=== PATIENT | female | born 1960 | race Caucasian/White ===

== ENCOUNTER → 2024-01-10 13:13 | Outpatient (REF) | payer OTHER, SELFPAY | LOC: ANHLAB 13:13 | PROVIDERS: PCP Internal Medicine; Visit Provider Plastic Surgery | DX: D48.5 Neoplasm of uncertain behavior of skin (principal); L72.3 Sebaceous cyst | CPT/HCPCS: 88305 ==

== ENCOUNTER 2024-08-08 15:00 | Emergency (ER) | payer MEDICARE, OTHER, SELFPAY ==
--- NOTE | ~2024-08-08 | XR_ITS ---
XR shoulder RT min 2V Ordering provider: David Green APRN History: . pain . Comparison: None. FINDINGS: BONES: No acute fracture or dislocation. JOINT SPACES: The acromioclavicular joint shows mild osteoarthritic changes. The glenohumeral joint i s normal. SOFT TISSUES: Normal. IMPRESSION: No acute osseous abnormality right shoulder. Reviewed, dictated and finalized at location A.
--- NOTE | ~2024-08-08 | XR_ITS ---
XR humerus RT Ordering provider: David Green APRN History: . pain, no particular injury reported . Comparison: None. FINDINGS: BONES: No acute fracture or dislocation. JOINT SPACES: Normal. SOFT TISSUES: Normal. IMPRESSION: No acute osseous abnormality right humerus. Reviewed, dictated and finalized at location A.
[2024-08-08 15:16] VITALS: BP 142/83; PULSE 65; RESP 20; TEMP 36.2; O2SAT 98
--- OUTSIDE RECORDS SUMMARY | 2024-08-08 15:31 | XMS_ITS | Clinical Summary ---
Author Organization [facility] Address [address] [facility] [place] [address] Phone Care Team Providers Care Surgical Elastic Knitter Hand Frame Name Role Phone Darshan Lockwood DPM Unavailable [phone] Provider, Not On File Primary Care Provider Unav ailable Allergies Active Allergy Reactions Criticality Noted Date Comments Neomycin Unknown 11/05/2015 Medications lisinopril-hydro CHLOROthiazide (PRINZIDE, ZESTORETIC) 10-12.5 MG Tablet 3 08/21/2015 Active DULoxetine (CYMBALTA) [address] Particles 5 10/14/2015 Active Cholecalciferol (VITAMIN D PO) Take by mouth. 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 16 Lumbar radiculopathy 11/05/2015 Dermatophytosis of nail 11/05/2015 Family History Medical History Relation Name Comments Cancer Father Cancer Maternal Aunt Cancer Maternal Grandfather Cancer Maternal Uncle Cancer Paternal Grandmother Cancer Paternal Uncle Relation Name Status Comments Father Maternal Aunt Maternal Grandfather Maternal Uncle Paternal Grandmother Paternal Uncle Social History Tobacco Use Types Packs/Day Years Used Date Smoking Tobacco: Never Alcohol Use Standard Drinks/Week Comments No 0 (1 standard drink = 0.6 oz pur e alcohol) Comments Unknown Sex and Gender Information Value Date Recorded Sex Assigned at Not on file Legal Sex Female 9:53 PM CDT Gender Identity Not on file Sexual Orientation Not on file Last Filed Vital Signs Vital Sign Reading Time Taken Comments Blood Pressure 120/70 11/05/2015 2:10 PM CDT Pulse 80 11/05/2015 2:10 PM CDT Temperature 37.1 C (98.7 F) 11/05/2015 2:10 PM CDT Respiratory Rate 18 11/05/2015 2:10 PM CDT Oxygen Saturation - - Inhaled Oxygen Concentration - - Weight 99.8 kg (220 lb) 11/05/2015 2:10 PM CDT Height 175.3 cm (5' 9 ) 11/05/2015 2:10 PM CDT Body Mass Index 32.49 11/05/2015 2:10 PM CDT Plan of Treatment Health Maintenance Due Date Last Done Comments DEXA Bone Density 1959 Hepatitis C Virus (HCV) Screening 1959 TdaP Immunization 1959 Pap Smear 01/20/1980 Cervical Cancer Screening (CCS) 1989 HPV/Cotest 1989 Colonoscopy 01/20/2004 Colorectal Cancer Screening 01/20/2004 Cologuard 2009 Immunochemical Fecal Occult Blood 2009 Mammogram 2009 Pneumococcal Immunization (5 0+ years) (1 of 1 - PCV) 2009 Zoster Immunization (1 of 2) 2009 Influenza Immunization (#1) 2023 SARS-COV-2 Immunization ( - 2023- season) 2023 Respiratory Syncytial Virus (RSV) Immunization (Adult) (1 - 1-dose 75+ series) 2034 Hepatitis B Immunization Aged Out No longer eligible based on patient's age to complete this topic Meningococcal Immunization (ACWY) Aged Out No longer eligible based on patient's age to complete this topic Pneumococcal Immunization Combined Aged Out No longer eligible based on patient's age to complete this topic Rotavirus Immunization Aged Out No lo nger eligible based on patient's age to complete this topic Care Teams Surgical Elastic Knitter Hand Frame Relationship Specialty Start Date End Date Provider, Not On File [place] PCP - General 11/05/15 Darshan Lockwood DPM Consulting Physician Podiatry 10/26/15
--- OUTSIDE RECORDS SUMMARY | 2024-08-08 15:31 | XMS_ITS | Clinical Summary ---
Author Organization [facility] Address [address] [place] [address] Phone Care Team Providers Care Medicaid Business Analyst Name Role Phone Unavailable Primary Care Provider Unavailabl e Social History Tobacco Use Types Packs/Day Years Used Date Smoking Tobacco: Never Assessed Comments Unknown Sex and Gender Information Value Date Recorded Sex Assigned at Not on file Legal Sex Female 4:24 PM CDT Gender Identity Not on file Sexual Orientation Not on file Plan of Treatment Health Maintenance Due Date Last Done Comments DTAP/TDAP/TD VACCINES (1 - Tdap) 1978 BREAST CANCER SCREENING 1999 COLORECTAL SCREENING 01/20/2004 Colorectal Cancer Screening 01/20/2004 FIT-DNA Q 3 years 01/20/2004 FIT/FOBT Q 1 year 01/20/2004 Flex Sig/CT Colonography Q 5 years 01/20/2004 PNEUMOCOCCAL VACCINE 50+ YEARS (1 of 1 - PCV) 01/20/20 09 ZOSTER VACCINE (1 of 2) 2009 INFLUENZA VACCINE (#1) 2023 OSTEOPOROSIS SCREENING 01/20/2024 RSV VACCINE (60+ or ) (1 - 1-dose 75+ series) 2034 Insurance [facility] BLUE ACCESS/TRUE BLUE PPO
--- OUTSIDE RECORDS SUMMARY | 2024-08-08 15:31 | XMS_ITS | Encounter Summary ---
Author Organization [facility] Address [address] [place] [address] Care Team Providers Care Farmworker Bulbs Name Role Phone Jeremy Flores MD Primary Care Provi susan Fredy Guaman MD Unavailable [phone] Doug Bains MD Unavailable [phone] Encounter Details Date Type Department Care Team (Late st Contact Info) Description 06/27/2018 Telephone 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 Gender Identity Not on file Sexual Orientation Straight 09/24/2018 10 :04 PM CDT documented as of this encounter Plan of Treatment Upcoming Encounters Date Type Department Care Team (Latest Contact Info) Description 08/15/2024 8:30 AM CDT Hospital Encounter [facility] [address] [place] [address] [place] [address] [place] [address] 08/15/2024 8:30 AM CDT - 08/15/2024 9:30 AM CDT Surgery [facility] [address] [place] [address] [place] [address] [place] [address] Right ureteroscopy laser lithotripsy with stent placement Scheduled Procedures Name Priority Associated Diagnoses Date/Ti me URETEROSCOPY Calculus of kidney 08/15/2024 8:30 AM CDT documented as of this encounter Visit Diagnoses Not on filedocumented in this encounter Additional Health Concerns Infection Onset Date Last Indicated Resolved Time COVID: Suspected 07/14/2022 07/14/2022 07/14/2022 11:08 PM CDT documented as of this encounter Care Teams Farmworker Bulbs Relationship Specialty Start Date End Date Jeremy Flores MD PCP - General 09/01/16 Fredy Guaman MD [address] [place] [address] Referring Physician Neuromuscular Medicine 12/26/17 Doug Bains MD [address] [facility] [address] [place] [address] Consulting Physician General Surgery 08/02/24 documented as of this encounter
--- OUTSIDE RECORDS SUMMARY | 2024-08-08 15:31 | XMS_ITS | Referral Summary ---
Author Organization [facility] al Address [address] [place] [address] Care Team Providers Care Analytical Technician Name Role Phone Lucien Pelletier MD Primary Care Provi susan Fredy Guaman MD Unavailable [phone] Doug Bains MD Unavailable [phone] Encounters Date Type Department Care Team Description 08/01/2024 9:16 AM CDT - 08/02/2024 2:25 PM CDT Hospital Encounter [address] [phone] Doug Bains MD Irreducible incisional hernia (Primary Dx) Discharge Disposition: Discharge to home or self care 08/01/2024 11:30 AM CDT - 08/01/2024 1:10 PM CDT Surgery [facility] Operating Room [address] [place] [phone] Doug Bains MD Incisional Hernia Repair with Mesh 08/01/2024 10:58 AM CDT Anesthesia Event [facility] Operating Room [address] [place] [phone] Asad Beth MD Czajkowski, Lesly June, NP 07/30/2024 8:45 AM CDT Pre-Admission Testing [facility] Pre Anesthesia Testing [facility] [place] [address] 07/25/2024 2:00 PM CDT Office Visit [facility] [address] [facility] [address] [place] [address] Aileen Savage NP Dyspnea on exertion (Primary Dx); Abnormal cardiovascular stress test 07/23/2024 Telephone [facility] [address] [facility] [address] [place] [address] Lucien Pelletier MD TEREZA Questions 07/22/2024 2:50 PM CDT - 07/22/2024 4:40 PM CDT Surgery [facility] [address] [place] [phone] Lloyd Nix MD LEFT HEART CATHETERIZATION WITH CORONARY ANGIOGRAPHY AND WITH OR WITHOUT LEFT VENTRICULOGRAM [id number] 07/19/2024 8:56 PM CDT - 07/22/2024 6:15 PM CDT Hospital Encounter [address] [address] Jennifer Esquivel MD Li, Hei Jun, MD Avagyan, Juletta, MD Sripada, Sarada, MD 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, unspecified vessel or lesion type (HCC) (Primary Dx) Discharge Disposition: Discharge to home or self care 07/20/2024 Results Follow-Up [facility] [address] [place] [address] [place] [phone] Ortiz Mckee MD PhD 07/19/2024 Results Follow-Up [facility] [address] [place] [address] [address], [place] [address] Ortiz Mckee MD PhD 07/19/2024 11:24 AM CDT - 07/19/2024 11:59 PM CDT Hospital Encounter [facility] [address], [place] [address] Other chest pain Discharge Disposition: Discharge to home or self care 07/19/2024 11:24 AM CDT - 07/19/2024 11:59 PM CDT Hospital Encounter [facility] Imaging [address], [place] [address] Other chest pain Discharge Disposition: Discharge to home or self care 07/17/2024 Telephone [facility] Imaging [address], [place] [address] Floridamla Duffy RN 07/10/2024 Telephone [facility] Cardiology [address] [facility] [address] [place] [address] Ortiz Mckee MD PhD blood pressure concerns 07/10/2024 11:15 AM CDT Office Visit [facility] Surgery [address] [facility] [address] [place] [address] Doug Bains MD Hernia of abdominal wall 07/02/2024 Telephone [facility] [address] [facility] [address] [place] [address] Marian Can Chart Review ([facility]) 06/24/2024 Telephone [facility] [address] [facility] [address] [place] [address] Lucien Pelletier MD Referral Request 06/24/2024 Telephone [facility] [address] [facility] [address] [place] [address] Lucien Pelletier MD Referral Request 06/19/2024 Telephone [facility] Cardiology [address] [facility] [address] [place] [address] Ortiz Mckee MD PhD 06/18/2024 Telephone [facility] [address] [facility] [address] [place] [address] Darshan Bennett MD 06/18/2024 1:00 PM CDT Office Visit [facility] [address] [facility] [address] [place] [phone] Ortiz Mckee MD PhD Other chest pain (Primary Dx) 06/12/2024 11:00 AM STAFF TRAINING AND DEVELOPMENT MANAGER Office Visit [facility] [address] [facility] [address] [place] [address] Aileen Savage NP Nephrolithiasis (Primary Dx); Morbid obesity with BMI of 40.0-44.9, adult (HCC); Dyspnea on exertion; Abnormal cardiovascular stress test; Partial small bowel obstruction (HCC); Hernia of abdominal wall 06/11/2024 Telephone [facility] [address] [facility] [address] [place] [address] Lucien Pelletier MD 06/07/2024 Telephone [facility] [address] [place] [address] [address] [place] [address] Lucien Pelletier MD 06/06/2024 Telephone [facility] [address] [place] [address] [address] [place] [address] Lucien Pelletier MD Test Results 06/06/2024 [facility] [address] [place] [address] [address] [place] [address] Lucien Pelletier MD Recommendation Request (Nephrology); kidney stones 06/06/2024 Telephone [facility] [address] [place] [address] [address] [place] [address] Lucien Pelletier MD Medical Records Request 06/05/2024 Telephone [facility] [address] [place] [address] [address] [place] [address] Lucien Pelletier MD Medical Question/Miscellaneous 06/05/2024 10:07 AM STAFF TRAINING AND DEVELOPMENT MANAGER - 06/05/2024 11:59 PM STAFF TRAINING AND DEVELOPMENT MANAGER Hospital Encounter [facility] Cardiology [address] [place] [address] Dyspnea on exertion Discharge Disposition: Discharge to home or self care 06/03/2024 TEREZA IP Outreach [facility] Care Organization [address] [place] [address] Madelin Hernández MA 05/31/2024 12:21 PM STAFF TRAINING AND DEVELOPMENT MANAGER - 06/01/2024 5:10 PM STAFF TRAINING AND DEVELOPMENT MANAGER Hospital Encounter [facility] [address] [place] [address] Alec Rivera Jr., MD Discharge Disposition: Discharge to home or self care 05/31/2024 10:58 AM STAFF TRAINING AND DEVELOPMENT MANAGER - 05/31/2024 11:59 PM STAFF TRAINING AND DEVELOPMENT MANAGER Hospital Encounter [facility] Emergency, Room R Discharge Disposition: Discharge to home or self care 05/30/2024 2:23 PM STAFF TRAINING AND DEVELOPMENT MANAGER - 05/31/2024 11:25 AM STAFF TRAINING AND DEVELOPMENT MANAGER Emergency [facility] Emergency Department [address] [place] [address] Barry Infante MD Wala, Zubin Faiz, MD Nausea and vomiting, unspecified vomiting type (Primary Dx); Bowel obstruction (HCC); Renal stone; Gallbladder stone without cholecystitis or obstruction Discharge Disposition: Discharge to a short term hospital for IP 05/30/2024 10:16 AM STAFF TRAINING AND DEVELOPMENT MANAGER - 05/30/2024 11:59 PM STAFF TRAINING AND DEVELOPMENT MANAGER Hospital Encounter [facility] Emergency, Room R Discharge Disposition: Discharge to home or self care 05/30/2024 Telephone [facility] [address] [place] [phone] Lucien Pelletier MD Symptom Based Call 05/20/2024 3:45 PM STAFF TRAINING AND DEVELOPMENT MANAGER Office Visit [facility] [address] [place] [phone] Lucien Pelletier MD Primary hypertension (Primary Dx); Morbid obesity with BMI of 40.0-44.9, adult (HCC); Dyspnea on exertion; History of colon cancer; IFG (impaired fasting glucose); Nephrolithiasis; Neuropathy due to chemotherapeutic drug; Bilateral primary osteoarthritis of knee from Last 3 Months Allergies Active Allergy Reactions Criticality Noted Date Comments Ciprofloxacin Dizziness,Nausea only Low Neomycin Nausea only Low Medications pregabalin (LYRICA) 200 mg capsule Take 1 capsule by mouth twice daily 60 capsule 3 04/25/19 25 Active acetaminophen (TYLENOL) 500 mg tablet Take 2 tablets (1,000 mg total) by mouth 2 (two) times a day Active cholecalciferol 25 mcg (1,000 unit) tablet Take 1 tablet (1,000 Units total) by mouth every morning Active famotidine (PEPCID) 20 mg tablet Take 1 tablet (20 mg total) by mouth galley worker before breakfast Active aspirin 81 mg enteric coated tablet Take 1 tablet (81 mg total) by mouth nightly Active naproxen (ALEVE) 220 mg tablet Take 1 tablet (220 mg total) by mouth every 12 (twelve) hours as needed for pain Active DULoxetine DR (CYMBALTA) 30 mg capsule Take 1 capsule (30 mg total) by mouth every morning Active empagliflozin (JARDIANCE) 10 mg tablet Take 1 tablet (10 mg total) by mouth every morning Active losartan (COZAAR) 100 mg tablet Take 1 tablet (100 mg total) by mouth every morning Active metoprolol XL (TOPROL-XL) 25 mg extended release tablet Take 1 tablet (25 mg total) by mouth every morning Active rosuvastatin (CRESTOR) 20 mg tablet Take 1 tablet (20 mg total) by mouth nightly Active spironolactone (ALDACTONE) 25 mg tablet Take 1 tablet (25 mg total) by mouth every morning Active HYDROcodone-aceta minophen (NORCO) 5-325 mg per tabletIndications :Pain Take 1-2 tablets by mouth every 4 (four) hours as needed for pain 30 tablet 08/03/[address] (CYMBALTA) 60 mg capsule Take 1 capsule (60 mg total) by mouth daily Active loperamide (IMODIUM A-D) 2 mg tablet take 2 tablet by per tube route after 1st loose stool and 1 tablet (2 mg) after each next bowel movement; do not exceed 16 mg in 24hrs 0 0 12/24/19 14 2024 Discontinued(E rror) naproxen sodium 220 mg capsule Take 220 mg by mouth 2 (two) times a day as needed (chronic pain) 07/01/19 23 2024 Discontinued(S top Taking at Discharge) potassium citrate ER (UROCIT-K) 10 mEq (1,080 mg) CR tablet Take 2 tablets (20 mEq total) by mouth 2 (two) times a day 2024 Discontinued(S top Taking at Discharge) famotidine (PEPCID) 20 mg tablet 1 tablet (20 mg total) 06/01/19 25 2024 Discontinued(D uplicate order) ondansetron ODT (ZOFRAN-ODT) 4 mg disintegrating tablet Take 1 tablet (4 mg total) by mouth every 8 (eight) hours as needed for nausea or vomiting 15 tablet 06/01/19 25 2024 Discontinued(T herapy completed) rosuvastatin (CRESTOR) 20 mg tablet Take 1 tablet by mouth once daily 30 tablet 1 06/03/19 [address] (CYMBALTA) 30 mg capsuleIndication s:Neuropathic pain Take 1 capsule (30 mg total) by mouth daily 90 capsule 1 06/12/19 25 2024 Discontinued(E rror) DULoxetine DR (CYMBALTA) 60 mg capsuleIndication s:Neuropathic pain Take 1 capsule (60 mg total) by mouth daily 90 capsule 1 06/12/19 25 2024 Discontinued(E rror) aspirin 81 mg enteric coated tablet Take 1 tablet (81 mg total) by mouth daily 30 tablet 06/19/192024 Discontinued(E rror) losartan (COZAAR) 50 mg tablet Take 1 tablet (50 mg total) by mouth daily 30 tablet 06/21/192024 Discontinued metoprolol XL (TOPROL-XL) 25 mg extended release tablet Take 1 tablet (25 mg total) by mouth daily 30 tablet 06/19/19 25 2024 Discontinued(E rror) losartan (COZAAR) 100 mg tablet Take 1 tablet (100 mg total) by mouth daily 90 tablet 3 07/11/19 25 2024 Discontinued(E rror) spironolactone (ALDACTONE) 25 mg tablet Take 1 tablet (25 mg total) by mouth daily 30 tablet 20 25 2024 Discontinued(E rror) empagliflozin (JARDIANCE) 10 mg tabletIndications :Heart Failure Take 1 tablet (10 mg total) by mouth daily 30 tablet 1 07/24/19 25 2024 Discontinued(E rror) rosuvastatin (CRESTOR) 20 mg tablet Take 1 tablet by mouth once daily 30 tablet 07/25/19 25 2024 Discontinued(E rror) Active Problems Problem Noted Date Diagnosed Date Irreducible incisional hernia 08/01/2024 Calculus of kidney 07/26/2024 Recurrent ventral hernia 07/25/2024 Coronary artery disease invo lving quileute heart with unstable angina pectoris 07/20/2024 Abnormal cardiovascular stress test 06/12/2024 Assessment & Plan (07/25/2024 2:18 PM CDT): Aileen Marshall NP have personally reviewed pertinent inpatient and/or ED records, including discharge medications and Clindesk if applicable. This patient's discharge medication list has been reviewed and reconciled with her outpatient medication list and has also been reviewed with patient and/or caregiver. I have noted any changes. Patient was having complaints of dyspnea with exertion. She had a abnormal CTA heart coronaries. She had her cardiac catheterization which showed minimal atherosclerosis. She had a false-positive CTA heart coronary. She follows up with Dr. Mckee in 3 weeks. Continue current medications. Assessment & Plan (06/12/2024 11:17 AM STAFF TRAINING AND DEVELOPMENT MANAGER): Refer for Cardiology consult. Hernia of abdominal wall 06/12/2024 Assessment & Plan (06/12/2024 11:19 AM STAFF TRAINING AND DEVELOPMENT MANAGER): After Cardiology consult we will consider referral to General surgery. Partial small bowel obstruction 05/31/2024 Assessment & Plan (06/12/2024 11:18 AM STAFF TRAINING AND DEVELOPMENT MANAGER): Aileen Marshall NP have personally reviewed pertinent inpatient and/or ED records, including discharge medications and Clindesk if applicable. This patient's discharge medication list has been reviewed and reconciled with her outpatient medication list and has also been reviewed with patient and/or caregiver. I have noted any changes. Resolved. Bilateral primary osteoarthritis of knee 025 Assessment & Plan (05/20/2024 4:34 PM STAFF TRAINING AND DEVELOPMENT MANAGER): Referral to physical therapy IFG (impaired fasting glucose) 02/09/2023 Assessment & Plan (05/20/2024 4:20 PM STAFF TRAINING AND DEVELOPMENT MANAGER): Lab Results Component Value Date HGBA1C 6.2 (H) 10/18/2023 HGBA1C 6.1 (H) 02/09/2023 HGBA1C 6.2 (H) 10/13/2022 LDL 156 (H) 06/25/2020 LDL 132 (H) 09/25/2018 LDL 111 08/31/2016 Tighten diet Continue to trend A1C Assessment & Plan (02/09/2023 12:56 PM CDT): A1C jumped to 6.2% 10/2022 Repeat A1C Elevated fasting glucose 09/25/2022 Assessment & Plan (10/18/2023 10:03 AM CDT): Stable. Encourage healthy lifestyle. Abdominal pain 07/15/2022 Dyspnea on exertion 06/30/2022 Assessment & Plan (07/25/2024 2:18 PM CDT): Refer to pulmonary for consult. Assessment & Plan (06/12/2024 11:18 AM STAFF TRAINING AND DEVELOPMENT MANAGER): Refer for Cardiology consult. Assessment & Plan (05/20/2024 4:21 PM STAFF TRAINING AND DEVELOPMENT MANAGER): Exertional dyspnea without angina. Cannot exclude cardiac substrate. There is a certainly a component of deconditioning. -->stress TTE Assessment & Plan (06/30/2022 4:16 PM CDT): EKG unremarkable today. No murmurs on exam, lungs CTA.. Likely due to deconditioning. Encouraged weight loss. Chronic pain of both knees 06/30/2022 Assessment & Plan (06/30/2022 4:18 PM CDT): Encouraged weight loss. Referred orthopedic for consultation and possible local steroid injection Encounter for preventative adult health care exwayne marcanoation 09/25/2018 Assessment & Plan (10/18/2023 10:04 AM CDT): Patient comes in today for a routine physical exam. Health maintenance objectives were discussed and exam performed as noted. Assessment & Plan (06/30/2022 4:17 PM CDT): -Discussed recommendations for exercise at least 30 minutes moderate to vigorous exercise most days of the week. (minimum 150 minutes weekly) -Discussed MyPlate recommendations and increasing fruits and vegetables. -Cancer screening: recommended colon cancer screening due 09/2022 referred today; cervical cancer screening- last pap 2017, due 2020- referred to [facility] today; annual mammogram and monthly self breast exam encouraged. -Immunizations: up to date, yearly influenza vaccines -Continue routine dental and vision care. Assessment & Plan (07/02/2020 9:34 AM CDT): Patient has been educated regarding preventative screening, immunizations, physical activity goes and management of chronic health conditions. Medication and allergies reviewed and updated. Past medical, surgical, family history reviewed and updated. Vital signs and BMI reviewed. Healthy lifestyle recommended, including regular exercise (daily aerobic & twice weekly resistance training), prudent diet, regular self breast & skin examinations (1 week after cycle begins), annual mammography (starting @ age 40), calcium & vitamin D supplementation, colonoscopy (starting @ age 50 for average risk person), regular gynecologic examinations with pelvic exam & PAP smear, periodic blood pressure monitoring, & bone-density testing (starting @ age 65 in average-risk person) Assessment & Plan (09/25/2018 3:40 PM CDT): Routine health maintenance objectives discussed and orders placed for any outstanding screening studies.Physical exam performed as above. Routine annual labs obtained and will be reviewed with patient when results available. Chronic pain 12/08/2017 History of colon cancer 11/10/2017 Assessment & Plan (05/20/2024 4:20 PM STAFF TRAINING AND DEVELOPMENT MANAGER): S/p XRT, LAR with ken dissection followed by chemotherapy in 2012 c/b neuropathy CEA trend favorable. No e/o residual or recurrent disease Ileostomy pulled down in 04/23 Assessment & Plan (10/18/2023 10:04 AM CDT): MARTINE. Assessment & Plan (02/09/2023 12:45 PM CDT): S/p XRT, LAR with ken dissection followed by chemotherapy in 2012 c/b neuropathy CEA trend favorable. No e/o residual or recurrent disease Ileostomy pulled down in 04/23 -->cont CEAs and q3y C/S Assessment & Plan (06/30/2022 3:13 PM CDT): S/p XRT, LAR with ken dissection followed by chemotherapy in 2012 c/b neuropathy CEA trend favorable. No e/o residual or recurrent disease Ileostomy pulled down in 04/23 Last colonoscopy 09/2019 due 09/2022 Morbid obesity with BMI of 40.0-44.9, adult 05/12 Assessment & Plan (06/12/2024 10:51 AM STAFF TRAINING AND DEVELOPMENT MANAGER): BMI Follow-up includes: nutrition counseling, exercise counseling, and education provided. Assessment & Plan (05/20/2024 3:52 PM STAFF TRAINING AND DEVELOPMENT MANAGER): BMI Follow-up includes: nutrition counseling, exercise counseling, and education provided. Assessment & Plan (10/18/2023 9:34 AM CDT): BMI Follow-up includes: nutrition counseling, exercise counseling, and education provided. Assessment & Plan (02/09/2023 12:40 PM CDT): BMI Follow-up includes: nutrition counseling, exercise counseling, and education provided. Assessment & Plan (04/16/2019 3:11 PM STAFF TRAINING AND DEVELOPMENT MANAGER): BMI Follow-up includes: nutrition counseling, exercise counseling and education provided. Assessment & Plan (02/15/2018 10:35 AM STAFF TRAINING AND DEVELOPMENT MANAGER): BMI Follow-up includes: nutrition counseling, exercise counseling and education provided. Assessment & Plan (06/06/2017 11:07 AM STAFF TRAINING AND DEVELOPMENT MANAGER): BMI Follow-up includes: nutrition counseling, exercise counseling and education provided. Nephrolithiasis 06/06/2017 Assessment & Plan (06/12/2024 11:18 AM STAFF TRAINING AND DEVELOPMENT MANAGER): Refer for urology consult. Assessment & Plan (05/20/2024 4:20 PM STAFF TRAINING AND DEVELOPMENT MANAGER): No intercurrent events She is compliant with urocit-K Assessment & Plan (04/16/2019 3:35 PM STAFF TRAINING AND DEVELOPMENT MANAGER): No intercurrent events She is compliant with urocit-K Assessment & Plan (02/15/2018 11:01 AM STAFF TRAINING AND DEVELOPMENT MANAGER): Controlled with urinary alkalization Assessment & Plan (06/06/2017 11:19 AM STAFF TRAINING AND DEVELOPMENT MANAGER): Uric acid and calcium oxalate S/p sheath extraction Cont HCTZ Potassium citrate has been added 24 hour urine revealed low pH and hypercalcuria Dietary considerations removed. Gastroesophageal reflux disease without esophagi tis 06/06/2017 Assessment & Plan (06/30/2022 4:14 PM CDT): GERD is well controlled on famotidine 20 mg daily. Assessment & Plan (07/02/2020 9:32 AM CDT): Sit upright postprandial. Avoid eating after 7:00 p.m. Avoid fat sugar pork etoh Call for any signs of gabo bleeding from rectum, dark tarry stools, abdominal pain nausea emesis or po intolerance, Prescription sent to pharmacy we discussed at length the risk and benefits if no resolution consult GI. Assessment & Plan (04/16/2019 3:36 PM STAFF TRAINING AND DEVELOPMENT MANAGER): sxs remain well controlled with famotidine and dietary discretion Assessment & Plan (06/06/2017 11:22 AM STAFF TRAINING AND DEVELOPMENT MANAGER): Good response to H2B Reviewed dietary avoidance. 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 Assessment & Plan (06/06/2017 11:16 AM STAFF TRAINING AND DEVELOPMENT MANAGER): Laboratory w/u from last visit WNL Chemo-induced Reviewed behavioral compensatory techniques Assessment & Plan (04/06/2017 2:51 PM STAFF TRAINING AND DEVELOPMENT MANAGER): Start workup with memory labs. Essential (primary) hypertension 06/29/2016 Overview (09/02/2016): Essential hypertension Assessment & Plan (02/15/2018 10:56 AM STAFF TRAINING AND DEVELOPMENT MANAGER): Hypertension is stable on lisinopril/HCTZ. Continue current treatment regimen. Dietary sodium restriction. Continue current medications. Blood pressure will be reassessed at the next regular appointment. Assessment & Plan (06/06/2017 11:19 AM STAFF TRAINING AND DEVELOPMENT MANAGER): Hypertension is stable. Continue current treatment regimen. Dietary sodium restriction. Regular aerobic exercise. Continue current medications. Blood pressure will be reassessed at the next regular appointment. Cont lisinopril/HCTZ Multiple-type hyperlipidemia 06/29/2016 Overview (09/02/2016): Mixed hyperlipidemia Assessment & Plan (10/18/2023 10:06 AM CDT): Stable. Continue rosuvastatin 20 mg daily. Assessment & Plan (02/09/2023 12:47 PM CDT): Lipids are at goal on rosuvastatin 20mg Continue present management Assessment & Plan (06/30/2022 4:15 PM CDT): Will check lipids today. Continue rosuvastatin 20 mg daily Assessment & Plan (07/02/2020 9:39 AM CDT): Most recent lipid profile reviewed: Lab Results Component Value Date CHOL 244 (H) 06/25/2020 TRIG 228 (H) 06/25/2020 HDL 49 (L) 06/25/2020 LDL 156 (H) 06/25/2020 Needs a statin Crestor 20 mg daily Major depressive disorder, single episode, mild 06/29/2016 Overview (09/02/2016): Mild single current episode of major depressive disorder Assessment & Plan (10/18/2023 10:06 AM CDT): Stable. Continue current medication. Assessment & Plan (06/30/2022 4:14 PM CDT): Stable. Continue Cymbalta 90 mg daily Assessment & Plan (07/02/2020 9:40 AM CDT): Taking cymbalta. Daily Radial styloid tenosynovitis 11/05/2015 Lumbar radiculopathy 11/05/2015 Sensory neuropathy 11/05/2015 Assessment & Plan (05/20/2024 4:26 PM STAFF TRAINING AND DEVELOPMENT MANAGER): Chemotherapy induced neuropathy When Linsey saw AUSTIN Varner in 06/2022, lyrica was titrated to 200mg bid which along with duloxetine has allowed for improvement in symptom burden Continue present management Assessment & Plan (02/09/2023 12:55 PM CDT): Chemotherapy induced neuropathy When Linsey saw AUSTIN Varner 06/2022, lyrica was titrated to 200mg bid which along with duloxetine has allowed for improvement in symptom burden Continue present management Assessment & Plan (06/30/2022 4:15 PM CDT): Neuropathy is somewhat worsening. Continue Cymbalta 90 mg daily and Lyrica 200 mg b.i.d.. She is wishing to add an afternoon dose of 100 mg to see if this will help improve her symptoms throughout the day. Will discuss with PCP. Assessment & Plan (07/02/2020 9:33 AM CDT): Uses cymbalta and lyrica for the neuropathy. Improves with medication. Assessment & Plan (04/16/2019 3:43 PM STAFF TRAINING AND DEVELOPMENT MANAGER): She understands that these sxs will not reverse. Reasonably well controlled lyrica 200mg bid and cymbalta 60mg bid She has gained some weight which she appropriately attributes to lyrica but states degree of benefit from this agent is such that she would like to continue and implement lifestyle modifications. Thyroid nodule 06/11/2014 Overview (07/15/2016): Thyroid nodule Assessment & Plan (10/18/2023 10:09 AM CDT): Asymptomatic. Update thyroid ultrasound. Hypertension 06/11/2014 Overview (04/24/2018): Hypertension Assessment & Plan (05/20/2024 4:14 PM STAFF TRAINING AND DEVELOPMENT MANAGER): Linsey is normotensive on lisinopril HCTZ Continue present management Assessment & Plan (10/18/2023 10:06 AM CDT): Stable. Continue current medication. Assessment & Plan (02/09/2023 12:47 PM CDT): Normotensive on lisinopril HCT Continue present management Assessment & Plan (06/30/2022 4:15 PM CDT): Hypertension is well controlled on current therapy. Continue lisinopril 10-12.5 mg daily. EKG normal today. Discussed dash diet. Assessment & Plan (07/02/2020 9:33 AM CDT): BP 138/84 (BP Location: Right arm, Patient Position: Sitting) Pulse 67 Temp 36.3 C (97.4 F) Ht 175.3 cm (5' 9 ) Wt 114.7 kg (252 lb 12.8 oz) SpO2 98% No BMI 37.33 kg/m Continue current treatment Microcytic anemia 12/23/2013 Overview (07/15/2016): Anemia Assessment & Plan (02/09/2023 1:01 PM CDT): PEDRO. Remote h/o colon cancer. C/S by Dr. Hooker 09/2022 was unremarkably. Started on FeSO4 out of suspicion for poor dietary iron intake. Today, she reports intermittent hematuria. Repeat CBC and iron studies along with UA Nontoxic uninodular goiter 12/23/2013 Overview (07/15/2016): Non-toxic uninodular goiter Assessment & Plan (07/02/2020 9:34 AM CDT): clinically euthyroid Labs pending Villous adenoma polyp of rectum 07/13/2012 Cholelithiasis without obstruction Overview (05/31/2024): Cholelithiasis w/o obstruction; Comments: OAC 12/23/2013 - improved with diet and weight loss Resolved Problems Problem Noted Date Diagnosed Date Resolved Date Need for influenza vaccination 04/16/2019 06/30/2022 Hypercalciuria 09/20/2018 06/30/2022 Assessment & Plan (04/16/2019 3:37 PM STAFF TRAINING AND DEVELOPMENT MANAGER): HCTZ History of rectal cancer 02/06/2018 Intractable neuropathic pain of lower extremity 12/08/2017 07/02/2020 Burning pain 09/07/2017 07/02/2020 Joint pain, hip 09/07/2017 07/02/2020 Left hip pain 09/07/2017 07/02/2020 Muscle pain 09/07/2017 07/02/2020 Numbness and tingling 09/07/20172022 Pain of right thigh 09/07/2017 07/01/19 Pure hypercholesterolemia 08/31/2016 Overview (09/02/2016): Pure hypercholesterolemia Assessment & Plan (07/02/2020 9:41 AM CDT): Start crestor daily Dehydration 07/27/2016 07/02/2020 Dermatophytosis of nail 11/05/201506/09 Ankle pain 10/08/2015 07/02/2020 Assessment & Plan (02/15/2018 10:55 AM STAFF TRAINING AND DEVELOPMENT MANAGER): There is chronic ankle pain with assoc'ed edema probably from neuropathy There is no e/o charcot joint seen on most recent plain radiographs from 2015 -- IMPRESSION: 1. Bilateral plantar calcaneal spur formation. 2. Minimal left first metatarsophalangeal joint osteoarthritis. Pain of foot 10/01/2015 07/02/2020 Joint pain 09/22/2015 07/02/2020 Blood in urine 07/16/2015 07/02/2020 Gross hematuria 06/23/2015 07/02/2020 Chemotherapy-induced peripheral neuropathy 01/06/2015 07/02/2020 Assessment & Plan (09/25/2018 3:48 PM CDT): Remains bothersome, but overall improved. Presently managed with lyrica and cymbalta. She tells me that she appreciates degree to which this regimen is helping when she inadvertently misses doses. Impacted cerumen 08/20/2014 07/02/2020 Overview (07/15/2016): Impacted cerumen of both ears BMI 36.0-36.9,adult 08/20/2014 02/10/20 Overview (07/15/2016): Body mass index (bmi) 31.0-31.9, adult Assessment & Plan (06/30/2022 3:18 PM CDT): BMI Follow-up includes: nutrition counseling, exercise counseling and education provided. Assessment & Plan (07/02/2020 8:50 AM CDT): BMI Follow-up includes: nutrition counseling, exercise counseling and education provided. Assessment & Plan (09/25/2018 3:32 PM CDT): BMI Follow-up includes: nutrition counseling, exercise counseling and education provided. Assessment & Plan (04/06/2017 2:04 PM STAFF TRAINING AND DEVELOPMENT MANAGER): BMI Follow-up includes: nutrition counseling, exercise counseling and education provided. Malignant neoplasm of colon 06/11/2014 07/02/2020 Overview (07/15/2016): Colon cancer Assessment & Plan (04/16/2019 3:49 PM STAFF TRAINING AND DEVELOPMENT MANAGER): S/p XRT, LAR with ken dissection followed by chemotherapy in 2012 c/b neuropathy CEA trend favorable. No e/o residual or recurrent disease Ileostomy pulled down in 04/23 -->cont CEAs and q3y C/S Assessment & Plan (09/25/2018 3:43 PM CDT): S/p XRT, followed by LAR and adjuvant chemotherapy completed in 2012, c/b neuropathy. CEA trend favorable No e/o residual/recurrent disease ->q5y colonoscopies Assessment & Plan (02/15/2018 11:05 AM STAFF TRAINING AND DEVELOPMENT MANAGER): S/p hemicolectomy and chemo Ostomy pulldown in 2013 No e/o active disease. CEA from 07/26 < .1 Cont annual CEAs and q5h colonoscopy Assessment & Plan (06/06/2017 11:20 AM STAFF TRAINING AND DEVELOPMENT MANAGER): Addressed 5 years ago. No e/o active disease. 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 Neuropathy 06/11/2014 07/02/2020 Overview (04/24/2018): Neuropathy Assessment & Plan (02/15/2018 10:54 AM STAFF TRAINING AND DEVELOPMENT MANAGER): Since last seen, lyrica has been added to cymbalta and she has noticed some degree of improvement in dysesthesias, but disequilibrium and impaired sensation persist. Assessment & Plan (06/06/2017 11:21 AM STAFF TRAINING AND DEVELOPMENT MANAGER): Chemo-induced Cont duloxetine and gabapentin(has titrated to qid dosing of 300mg) Add alpha lipoic acid for synergy Consider increasing gabapentin based on response metanx is a consideration as well. Hyperlipidemia 06/11/2014 07/02/2020 Overview (07/15/2016): HLD - Hyperlipidemia Lung mass 03/04/2014 07/02/2020 Benign essential hypertension 12/23/2013 07/02/2020 Overview (07/15/2016): Benign essential hypertension Assessment & Plan (04/16/2019 3:47 PM STAFF TRAINING AND DEVELOPMENT MANAGER): At goal on lisinopril and HCTZ Cont present management. Reviewed importance of judicious salt intake and regular aerobic activity. Assessment & Plan (09/25/2018 3:44 PM CDT): Hypertension is stable on lisinopril/HCTZ. Continue current treatment regimen. Dietary sodium restriction. Continue current medications. Blood pressure will be reassessed at the next regular appointment. History of rectal or anal cancer 04/12/2013 06/30/2022 Assessment & Plan (07/02/2020 9:32 AM CDT): 06/26/2012. Had surgery and chemo treatments. MARTINE at this time. Adenocarcinoma of sigmoid colon 07/13/2012 07/02/2020 Encounter for preventive health examination 06/26/2012 06/30/2022 Immunizations Immunization Administration Dates Next Due Influenza, Quadrivalent, Spl it, Intramuscular 01/08/2015 Influenza, Quadrivalent, Spl it, Preservative Free, Intramuscular 02/09/2023,04/16/2019,02/15/2018,04/06 Influenza, Trivalent, High D ose, Split, Preservative Free, Intramuscular 02/08/2024 Influenza, Trivalent, IM (MDV) 01/22/2014 Influenza, Trivalent, Preser vative Free, Intramuscular 02/02/2016 Influenza, Trivalent, Recomb inant, Egg Free, Preservative Free, Antibiotic Free, IM (FLUBLOK) 01/08/2014 Influenza, Unspecified 01/08/2022,2018(Deferred: Patient Refused) Pfizer SARS-CoV-2 Monovalent Vaccination (12+ Yrs) PURPLE 06/21/2020 Pneumococcal Conjugate Pcv20 02/08/2024 TD Preservative Free 01/08/2014 Tdap 05/20/2024(Deferred: Patient Refused),04/10/2007 ZOSTER Recombinant 05/20/2024(Deferred: Patient Refused),02/09/2023 Social History Tobacco Use Types Packs/Day Years Used Date Smoking Tobacco: Never Passive Smoke Exposure: Never Smokeless Tobacco: Never Tobacco Cessation:Counseling Given: Not Answered Alcohol Use Standard Drinks/Week Comments No 0 (1 standard drink = 0.6 oz pur e alcohol) [facility] Utilities Answer Date Recorded In the past 12 months has [employer], gas, oil, or water NumberPicture threatened to shut off services in your home? No 07/22/2024 Social Connection and Isolat ion Panel [NHANES] Answer Date Recorded In a typical week, how many times do you talk on the phone with family, friends, or neighbors? More than three times a week 07/22/2024 How often do you get togethe r with friends or relatives? Once a week 07/22/2024 How often do you attend [facility] or orthodoxy services? 1 to 4 times per year 07/22/2024 Do you belong to any clubs o r organizations such as congregational groups, unions, fraternal or athletic groups, or school groups? Yes 07/22/2024 How often do you attend meet ings of the clubs or organizations you belong to? More than 4 times per year 07/22/2024 Are you , , di vorced, , never , or living with a partner? Never 07/22/2024 AUDIT-C Answer Date Recorded Q1: How often do you have a drink containing alcohol? Never 08/07/2024 Q2: How many drinks containi ng alcohol do you have on a typical day when you are drinking? Patient does not drink Q3: How often do you have si x or more drinks on one occasion? Never 08/07/2024 Overall Financial Resource Strain (CARDIA) Answe r Date Recorded How hard is it for you to pa y for the very basics like food, housing, medical care, and heating? Somewhat hard 07/22/2024 PHQ-2 Answer Date Recorded PHQ-2 Total Score (If total score is 3 or more points, staff should administer the PHQ-9) 0 07/25/2024 Hunger Vital Sign Answer Date Recorded Within the past 12 months, y ou worried that your food would run out before you got the money to buy more. Never true 07/23/19 Within the past 12 months, t he food you bought just didn't last and you didn't have money to get more. Never true 07/22/2024 PRAPARE - Transportation Answer Date Re corded In the past 12 months, has l ack of transportation kept you from medical appointments or from getting medications? No 07/09 In the past 12 months, has l ack of transportation kept you from meetings, work, or from getting things needed for daily living? No 07/22/2024 PHQ-9 Answer Date Recorded PHQ-9 Total Score 0 07/25/2024 Housing Stability Vital Sign Answer Miquel e Recorded In the last 12 months, was t here a time when you were not able to pay the mortgage or rent on time? No 07/22/2024 In the past 12 months, how m any times have you moved where you were living? 0 07/22/2024 At any time in the past 12 m [facility], were you homeless or living in a long term (including now)? No 07/22/2024 Personal Safety Answer Date Recorded Have you ever been in or are you currently in a harmful physical or emotional relationship or is someone making you feel afraid or unsafe? Denies 08/01/2024 Comments No Sex and Gender Information Value Date Recorded Sex Assigned at Not on file Legal Sex Female 11:27 AM STAFF TRAINING AND DEVELOPMENT MANAGER Gender Identity Not on file Sexual Orientation Straight 09/24/2018 10 :04 PM CDT Last Filed Vital Signs Vital Sign Reading Time Taken Comments Blood Pressure 117/65 08/02/2024 11:39 AM CDT Pulse 59 08/02/2024 11:39 AM CDT Temperature 36.2 C (97.2 F) 08/02/2024 11:39 AM CDT Respiratory Rate 18 08/02/2024 11:3 9 AM CDT Oxygen Saturation 96% 08/02/2024 11: 39 AM CDT Inhaled Oxygen Concentration - - Weight 121.9 kg (268 lb 11.9 oz) 08/01/2024 9:33 AM CDT Height 175.3 cm (5' 9 ) 08/01/2024 9:33 AM CDT Body Mass Index 39.69 08/01/2024 9:33 AM CDT Plan of Treatment Upcoming Encounters Date Type Department Care Team (Latest Contact Info) Description 08/15/2024 8:30 AM CDT Hospital Encounter [facility] Operating Room [address] [place] [address] [place] [address] [place] [address] 08/15/2024 8:30 AM CDT - 08/15/2024 9:30 AM CDT Surgery [facility] Operating Room [address] [place] [address] [place] [address] [place] [address] Right ureteroscopy laser lithotripsy with stent placement Scheduled Procedures Name Priority Associated Diagnoses Date/Ti me URETEROSCOPY Calculus of kidney 08/15/2024 8:30 AM CDT Goals Goal Patient Goal Type Associated Problems Recent Progress Patient-Stated? Author CCM Chronic Pain Care Plan Chronic Care Management Yovany Aldana, RN Note: Problem: Chronic Pain Goals: 1. Minimize further functional decline 2. Maximize quality of life 3. Control pain Strategies: - Activity/exercise program recommendation - Conservative stepwise pain medicine strategy with multi-disciplinary approach - Recommend healthy lifestyle strategies and compensatory methods as needed Medical Devices Implanted Type Area Rubber Washer Device Identifier Shelf Expiration Date Model / Serial / Lot [employer]/C R [address] Sepra Sorbaflex 4.5in [place] Open Bioresorbable Self [id number] - [id number] Implanted:Qty: 1 on 08/01/2024 by Doug Bains MD at [facility] Mesh N/A: Abdomen [employer]/C R Bard 12/05/2025 [id number] / / [id number] Procedures Procedure Name Priority Date/Time Associated Diagnosis Comments OR AN PROCEDURE PLACEHOLDER Routine 08/01/2024 11:14 AM CDT OR AN ELECTIVE ENDOTRACHEAL AIRWAY Routine 08/01/2024 11:14 AM CDT REPAIR INCISIONAL HERNIA 08/01/2024 10:58 AM CDT Recurrent ventral hernia LEFT HEART CATHETERIZATION WITH CORONARY ANGIOGRAPHY AND WITH AND WITHOUT LEFT VENTRICULOGRAM Routine 07/22/2024 2:42 PM CDT URINALYSIS AND REFLEX TO MICROSCOPIC AND CULTURE Routine 07/20/2024 10:24 AM CDT EGFR Routine 07/20/2024 5:43 AM CDT CBC WITHOUT DIFFERENTIAL Routine 07/20/2024 5:43 AM CDT PHOSPHORUS Routine 07/20/2024 5:43 AM CDT MAGNESIUM Routine 07/20/2024 5:43 AM CDT BASIC METABOLIC PANEL Routine 07/20/2024 5:43 AM CDT TROPONIN T HIGH-SENSITIVITY 6-HOUR Timed 07/20/2024 2:19 AM CDT TROPONIN T HIGH-SENSITIVITY 2-HOUR Timed 07/19/2024 11:17 PM CDT XR CHEST PA LATERAL 2 VIEWS ED 07/19/2024 8:44 PM CDT EGFR STAT 07/19/2024 8:33 PM CDT DIFFERENTIAL AUTO STAT 07/19/2024 8:3 3 PM CDT PRO B-TYPE NATRIURETIC PEPTIDE STAT 07/19/2024 8:33 PM CDT TROPONIN T HIGH-SENSITIVITY SERIES (BASELINE, 2HR, 4HR, 6HR) STAT 07/19/2024 8:33 PM CDT CBC WITH AUTO DIFFERENTIAL STAT 07/19/2024 8:33 PM CDT COMPREHENSIVE METABOLIC PANEL STAT 07/19/2024 8:33 PM CDT ECG 12-LEAD STAT 07/19/2024 8:[address] HEART MORPHOLOGY AND CORONARY ARTERIES W CONTRAST Schedule Routine, Read Routine (OP Routine) 07/19/2024 12:59 PM CDT Other chest pain TRANSTHORACIC ECHO (TTE) COMPLETE W DOPPLER/CF W CONTRAST Routine 07/19/2024 12:37 PM CDT Other chest pain POC ISTAT Routine 07/19/2024 12:24 PM CDT STRESS ECHO PHARMACOLOGIC W DOPPLER/CF W CONTRAST Routine 06/05/2024 11:49 AM STAFF TRAINING AND DEVELOPMENT MANAGER Dyspnea on exertion EGFR Routine 05/31/2024 2:29 PM STAFF TRAINING AND DEVELOPMENT MANAGER PHOSPHORUS STAT 05/31/2024 2:29 PM STAFF TRAINING AND DEVELOPMENT MANAGER MAGNESIUM STAT 05/31/2024 2:29 PM STAFF TRAINING AND DEVELOPMENT MANAGER COMPREHENSIVE METABOLIC PANEL Routine 05/31/2024 2:29 PM STAFF TRAINING AND DEVELOPMENT MANAGER CBC WITHOUT DIFFERENTIAL STAT 05/31/2024 2:29 PM STAFF TRAINING AND DEVELOPMENT MANAGER XR ABDOMEN AP 1 VIEW ED Urgent/IP Urgent 05/31/2024 9:45 AM STAFF TRAINING AND DEVELOPMENT MANAGER TROPONIN T HIGH-SENSITIVITY SERIES (BASELINE, 2HR, 4HR, 6HR) STAT 05/30/2024 4:39 PM STAFF TRAINING AND DEVELOPMENT MANAGER PRO B-TYPE NATRIURETIC PEPTIDE STAT 05/30/2024 4:39 PM STAFF TRAINING AND DEVELOPMENT MANAGER ECG 12-LEAD Routine 05/30/2024 4:03 PM STAFF TRAINING AND DEVELOPMENT MANAGER CT CHEST PE ABDOMEN PELVIS W CONTRAST ED 05/30/2024 3:35 PM STAFF TRAINING AND DEVELOPMENT MANAGER US GALLBLADDER ED 05/30/2024 3:25 PM STAFF TRAINING AND DEVELOPMENT MANAGER URINALYSIS, MICROSCOPIC ONLY STAT 05/30/2024 2:30 PM STAFF TRAINING AND DEVELOPMENT MANAGER URINALYSIS AND REFLEX TO MICROSCOPIC AND CULTURE STAT 05/30/2024 2:30 PM STAFF TRAINING AND DEVELOPMENT MANAGER EGFR STAT 05/30/2024 10:42 AM STAFF TRAINING AND DEVELOPMENT MANAGER DIFFERENTIAL AUTO STAT 05/30/2024 10: 42 AM STAFF TRAINING AND DEVELOPMENT MANAGER LIPASE STAT 05/30/2024 10:42 AM STAFF TRAINING AND DEVELOPMENT MANAGER COMPREHENSIVE METABOLIC PANEL STAT 05/30/2024 10:42 AM STAFF TRAINING AND DEVELOPMENT MANAGER CBC WITH AUTO DIFFERENTIAL STAT 05/30/2024 10:42 AM STAFF TRAINING AND DEVELOPMENT MANAGER SCREENING MAMMOGRAM BILATERAL W TRAY Schedule Routine, Read Routine (OP Routine) 12/06/2023 2:57 PM CDT Screening mammogram, encounter for COLONOSCOPY 09/22/2022 10:02 AM CDT HEPATITIS C ANTIBODY Routine 07/02/2020 10:36 AM CDT Encounter for hepatitis C screening test for low risk patient from Last 3 Months or Most Recently Relevant to Health Maintenance Results * OR AN ELECTIVE ENDOTRACHEAL AIRWAY, OR AN PROCEDURE PLACEHOLDER (08/01/2024 11:14 AM CDT) Narrative Lane Bowser CRNA - 08/01/2024 11:[address] Bowser CRNA 08/01/2024 11:14 AM Airway Patient location: OR Urgency: elective Indications for airway management: anesthesia Difficult airway: no Staff: Supervising provider: Asad Bteh MD Placed by: MANUFACTURING PROJECT MANAGER: Lane Bowser CRNA Emergent airway documentation: Risks and benefits discussed: yes Consent obtained: yes Consent given by: patient Airway prep: Preoxygenated: yes Patient position: sniffing Mask difficulty assessment: 1 - vent by mask Sedation level during airway: GA Final airway details: Final airway type: endotracheal airway Tube type: ETT ETT size: 7.0 mm Cuffed: yes Technique used for successful ETT placement: video laryngoscopy Devices/Methods used in placement: stylet Insertion site: oral Video blade type: Almanza Blade size: 3 Cormack-Lehane (direct): grade I - full view of glottis Cuff volume: 5 mL Cuff inflated with: air ETT to teeth: 21 cm Placement verified by: auscultation and CO2 detection Airway secured with: silk tape Number of attempts: 1 us Asad Beth MD ANESTHESIA ORDERABLES F inal Result * LEFT HEART CATHETERIZATION WITH CORONARY ANGIOGRAPHY AND WITH AND WITHOUT LEFT VENTRICULOGRAM (07/22/2024 2:42 PM CDT) Anatomical Region Laterality Modality X-Ray Angiograph y Narrative 07/22/2024 2:46 PM CDT Images from the original result were not included. [facility] [address] [place] [address], [address] [place] [address], [id number] Left Heart Catheterization Procedure Report 64 y.o. year old female with abnormal CTA referred for left heart catheterization. Attending Physician: Lloyd Nix MD Access:6F Right Radial Artery Catheter:Milo and FR4 Injection:Left Main Trunk and Right Coronary Artery Closure:TR band Anticoagulation:5000Units Heparin Air Kerma:260 mGy Fluoro time:3.8 min Contrast:45 ml Optiray Sedation:1mg Versed, 50 mcg fentanyl Estimated blood Loss: minimal Preprocedural Diagnosis: Abnormal CTA Postprocedural Diagnosis: Mild CAD Procedural details: After risks, benefits, and alternatives to the procedure were explained to the patient, they agreed to proceed. After signing informed consent the patient was brought to the cardiac catheterization laboratory. There were prepped and draped in sterile fashion. A 6 Pashto sheath was inserted in the Right Radial Artery using the modified Seldinger technique .. We then performed selective coronary angiography using various catheters. We then crossed the aortic valve and measured hemodynamics using a pigtail catheter. At completion of the case a TR Band was placed at the wrist with good hemostasis achieved. The patient tolerated the procedure well with no complaints and was transferred to the floor for further monitoring and care. Findings: LMT: Normal LAD: Normal LCX: Codominant, normal RCA: Codominant, mild luminal irregularities LV: 170/15 mm Hg Ao: 170/60 mm Hg A/P: Trivial coronary artery disease. False positive CTA. Investigate other causes of fatigue. Lloyd Nix MD 07/22/2024 2:44 PM us Lloyd Nix MD CV CARDIAC CATH PROCEDURES Final Result * (ABNORMAL) Urinalysis reflex to microscopic and culture Urine, clean voided (07/20/2024 10:24 AM CDT) Color, ur Yellow Yellow Clarity, ur Clear Clear [facility] Specific gravity, ur 1.045(H) 1.003 - 1.030 [facility] pH, urine 5.5 [facility] Comment: Interpretive Data U rine pH is affected by diet, medications, systemic acid-base disturbances, and renal tubular function. pH may affect urinary stone formation. For example, urine pH below 6.0 may help reduce the tendency for calcium phosphate stones and pH greater than 6.0 may reduce the tendency for uric acid stone formation. Source: [facility] Current Interpretive Data was last revised on 2017 Protein, ur ql Trace Negative [facility] Glucose, ur ql Negative Negative [facility] Ketones, ur Negative Negative [facility] Bilirubin, ur Negative Negative [facility] Blood, ur Negative Negative [facility] Urobilinogen, ur <2.0 <2.0 mg/dL [facility] Nitrite, ur Negative Negative [facility] Leukocyte esterase, ur Negative Negative [facility] UA reflex comment Reflex conditions for microscopic UA and culture not met. [facility] Urine, clean voided 07/20/2024 10:24 AM CDT 07/20/2024 10:31 AM CDT us Kim Schaefer MD LAB MICROBIOLOGY - GENERAL ORD ERABLES Final Result [facility] [address] Department [place] [address] * eGFR (07/20/2024 5:43 AM CDT) [facility] eGFR 66 >=60 mL/min/1. 73 m2 Comment: Interpretive Data Reference Interval Normal >/= 90 mL/min/1.73m2 Mildly decreased* 60 - 89 mL/min/1.73m2 Mildly to moderately decreased 45 - 59 mL/min/1.73m2 Moderately to severely decreased 30 - 44 mL/min/1.73m2 Severely decreased 15 - 29 mL/min/1.73m2 Kidney Failure < 15 mL/min/1.73m2 *Relative to young adult level Estimated glomerular filtration rate is determined by the 2020 CKD-EPI equation recommended by the National Kidney Foundation (A Unifying Approach to GFR Estimation: Recommendations of the NKF-ASK Task Force on Reassessing the Inclusion of Race in Diagnosing Kidney Disease, JASN 2020). The CKD-EPI equation should not be used for patients with unstable renal function and has not been validated in children and those over 70. Current interpretive data was last reviewed 2021. Blood 07/20/2024 5:43 AM CDT 07/20/2024 6:45 AM CDT us Shmuel Knox MD LAB BLOOD ORDERABLES Final Resul t [facility] [address] Department [place] [address] * (ABNORMAL) CBC without differential (07/20/2024 5:43 AM CDT) [facility] WBC 4.84 3.80 - 9.90 K/cumm Hgb 11.7(L) 11.9 - 15.5 g/dL [facility] Hct 38.6 35.6 - 45.5 % [facility] Plt 211 150 - 400 K/cumm [facility] MPV 11.0 9.1 - 12.3 fL [facility] RBC 4.11 3.90 - 5.20 M/cumm [facility] MCV 93.9 81.3 - 96.4 fL [facility] MCH 28.5 27.1 - 33.3 pg [facility] MCHC 30.3(L) 32.3 - 35.7 g/dL [facility] RDW CV 14.6 11.1 - 14.9 % [facility] RDW SD 50.5(H) 35.7 - 48.1 fL [facility] NRBC abs 0.00 0.00 - 0.01 K/cumm [facility] Blood 07/20/2024 5:43 AM CDT 07/20/2024 6:40 AM CDT us Shmuel Knox MD LAB BLOOD ORDERABLES Final Resul t Performing Organization Address City/[facility]/ZIP Co de Phone Number [facility] [address] [facility] [place] [address] * Phosphorus (07/20/2024 5:43 AM CDT) Phosphorus, pl 4.2 2.3 - 4.5 mg/dL Blood 07/20/2024 5:43 AM CDT 07/20/2024 6:45 AM CDT us Shmuel Knox MD LAB BLOOD ORDERABLES Final Resul t Performing Organization Address City/[facility] Co de Phone Number [facility] [address] [place] [address] * Magnesium (07/20/2024 5:43 AM CDT) Magnesium 2.0 1.4 - 2.5 mg/dL Blood 07/20/2024 5:43 AM CDT 07/20/2024 6:45 AM CDT us Shmuel Knox MD LAB BLOOD ORDERABLES Final Resul t [facility] [address] Department [place] [address] * Basic metabolic panel (07/20/2024 5:43 AM CDT) Pathologist [facility] Sodium 143 135 - 145 mmol/L Potassium, pl 4.1 3.3 - 4.9 mmol/L [facility] Chloride 106 97 - 110 mmol/L [facility] CO2 27 22 - 32 mmol/L [facility] Anion gap 10 2 - 15 mmol/L [facility] BUN 18 6 - 25 mg/dL [facility] Creatinine 0.96 0.60 - 1.10 mg/dL [facility] Glucose 124 70 - 199 mg/dL [facility] Comment: Interpretive Data Fasting glucose >/= 126 mg/dl is diagnostic for diabetes. Fasting is defined as no caloric intake for at least 8 hours. Fasting glucose between 100 mg/dl to 125 mg/dl is diagnostic of prediabetes. In a patient with classic symptoms of hyperglycemia or hyperglycemic crisis, a random glucose >/= 200 mg/dl is diagnostic for diabetes. In the absence of unequivocal hyperglycemia, results should be confirmed by repeat testing. The classification and Diagnosis of Diabetes Diabetes Care 2021; 46: S19-S40. Current interpretive data was last revised 2022. Calcium 9.3 8.5 - 10.3 mg/dL [facility] Blood 07/20/2024 5:43 AM CDT 07/20/2024 6:45 AM CDT us Shmuel Knox MD LAB BLOOD ORDERABLES Final Resul t [facility] [address] Department [place] [address] * Troponin T high-sensitivity 6-hour (07/20/2024 2:19 AM CDT) [facility] Trop T hs 13 <=14 ng/L Comment: Interpretive Data For further hscTnT resources including the diagnostic algorithm and an aid in interpretation, copy and paste this link: https://nrl.testcatalog.org/show/hsTrop Current Interpretive Data last revised 2020. Trop T hs delta -2 ng/L [facility] Trop T hs interp Insignificant [facility] Blood 07/20/2024 2:19 AM CDT 07/20/2024 2:34 AM CDT Jennifer Esquivel MD LAB BLOOD ORDERABLES Final Result Performing Organization Address [facility] Co de Phone Number [facility] [address] Department [place] [address] * Troponin T high-sensitivity 2-hour (07/19/2024 11:17 PM CDT) Trop T hs 14 <=14 ng/L Comment: Interpretive Data For further hscTnT resources including the diagnostic algorithm and an aid in interpretation, copy and paste this link: https://nrl.testcatalog.org/show/hsTrop Current Interpretive Data last revised 2020. Trop T hs delta -1 ng/L [facility] Trop T hs interp Insignificant [facility] Blood 07/19/2024 11:1 7 PM CDT 07/19/2024 11:32 PM CDT Jennifer Esquivel MD LAB BLOOD ORDERABLES Final Result Performing Organization Address [facility] de Phone Number [facility] [address] [place] [address] * XR Chest PA Lateral 2 Views (07/19/2024 8:44 PM CDT) Anatomical Region Laterality Modality Body, Chest N/A Computed Radiogr aphy 07/19/2024 9:35 PM CDT Impressions 07/19/2024 9:35 PM CDT There is mild bibasilar atelectasis. No focal pneumonic consolidation, effusion, or pneumothorax. The heart size is stable. Electronically signed by: Mc Cam M.D. Narrative 07/19/2024 9:35 PM CDT EXAMINATION: XR CHEST PA LATERAL 2 VIEWS HISTORY: Shortness of breath COMPARISON: 07/19/2024 CT, 07/18/2017. Procedure Note Mc Cam MD - 07/19/2024 EXAMINATION: XR CHEST PA LATERAL 2 VIEWS HISTORY: Shortness of breath COMPARISON: 07/19/2024 CT, 07/18/2017. IMPRESSION: There is mild bibasilar atelectasis. No focal pneumonic consolidation, effusion, or pneumothorax. The heart size is stable. Electronically signed by: Mc Cam M.D. us Jennifer Esquivel MD IMG XR PROCEDURES Final Re sult * (ABNORMAL) Troponin T high-sensitivity series (baseline, 2hr, 4hr, 6hr) (07/19/2024 8:33 PM CDT) Pathologist [facility] Trop T hs 15(H) <=14 ng/L Comment: Interpretive Data For further hscTnT resources including the diagnostic algorithm and an aid in interpretation, copy and paste this link: https://nrl.testcatalog.org/show/hsTrop Current Interpretive Data last revised 2020. Blood 07/19/2024 8:33 PM CDT 07/19/2024 8:50 PM CDT us Jennifer Esquivel MD LAB BLOOD ORDERABLES Final Result [facility] [address] Department [place] [address] * eGFR (07/19/2024 8:33 PM CDT) Pathologist [facility] eGFR 77 >=60 mL/min/1. 73 m2 Comment: Interpretive Data Reference Interval Normal >/= 90 mL/min/1.73m2 Mildly decreased* 60 - 89 mL/min/1.73m2 Mildly to moderately decreased 45 - 59 mL/min/1.73m2 Moderately to severely decreased 30 - 44 mL/min/1.73m2 Severely decreased 15 - 29 mL/min/1.73m2 Kidney Failure < 15 mL/min/1.73m2 *Relative to young adult level Estimated glomerular filtration rate is determined by the 2020 CKD-EPI equation recommended by the National Kidney Foundation (A Unifying Approach to GFR Estimation: Recommendations of the NKF-ASK Task Force on Reassessing the Inclusion of Race in Diagnosing Kidney Disease, JASN 2020). The CKD-EPI equation should not be used for patients with unstable renal function and has not been validated in children and those over 70. Current interpretive data was last reviewed 2021. Blood 07/19/2024 8:33 PM CDT 07/19/2024 8:50 PM CDT us Jennifer Esquivel MD LAB BLOOD ORDERABLES Final Result [facility] [address] Department [place] [address] * Differential, auto (07/19/2024 8:33 PM CDT) Neutrophil abs 4.11 1.50 - 6.50 K/cumm Imm gran abs 0.02 0.00 - 0.10 K/cumm [facility] Lymphocyte abs 1.21 0.80 - 3.30 K/cumm [facility] Monocyte abs 0.48 0.20 - 0.80 K/cumm [facility] Eosinophil abs 0.18 0.00 - 0.50 K/cumm [facility] Basophil abs 0.03 0.00 - 0.10 K/cumm [facility] Neutrophil pct 68.1 % [facility] Comment: Interpretive Data Percent cell count reference ranges are not reported, since discordance with absolute values may lead to misinterpretation of CBC data. Current Interpretive Data was last revised on 2017. Imm gran pct 0.3 % [facility] Comment: Interpretive Data Percent cell count reference ranges are not reported, since discordance with absolute values may lead to misinterpretation of CBC data. Current Interpretive Data was last revised on 2017. Lymphocyte pct 20.1 % [facility] Comment: Interpretive Data Percent cell count reference ranges are not reported, since discordance with absolute values may lead to misinterpretation of CBC data. Current Interpretive Data was last revised on 2017. Monocyte pct 8.0 % [facility] Comment: Interpretive Data Percent cell count reference ranges are not reported, since discordance with absolute values may lead to misinterpretation of CBC data. Current Interpretive Data was last revised on 2017. Eosinophil pct 3.0 % [facility] Comment: Interpretive Data Percent cell count reference ranges are not reported, since discordance with absolute values may lead to misinterpretation of CBC data. Current Interpretive Data was last revised on 2017. Basophil pct 0.5 % [facility] Comment: Interpretive Data Percent cell count reference ranges are not reported, since discordance with absolute values may lead to misinterpretation of CBC data. Current Interpretive Data was last revised on 2017. Blood 07/19/2024 8:33 PM CDT 07/19/2024 8:50 PM CDT us Jennifer Esquivel MD LAB BLOOD ORDERABLES Final Result [facility] [address] Department [place] [address] * Pro B-type natriuretic peptide (07/19/2024 8:33 PM CDT) NT-proBNP <36 <=300 pg/mL Comment: Interpretive Comments: A. Dyspnea in Acute Care Setting All Ages: < 300 pg/ml, acute heart failure unlikely. < 50 yrs: 300 - 450 pg/ml, further investigation warranted. > 450 pg/ml, acute heart failure likely. 50 - 74 yrs: 300 - 900 pg/ml, further investigation warranted. > 900 pg/ml, acute heart failure likely . > or = 75 yrs: 450 - 1800 pg/ml, further investigation warranted. > 1800 pg/ml, acute heart failure likely. B. Non-acute Setting < 75 yrs < 125 pg/ml, rules out heart failure. > or = 125 pg/ml, further investigation warranted. > or = 75 yrs < 450 pg/ml, rules out heart failure. > or = 450 pg/ml, further investigation warranted. - Knowledge of each individual patient's NT-proBNP range may be more useful than using similar cut-points for every patient. Please note that marked elevations in NT-proBNP levels may be observed in state other than Left Ventricular Congestive Failure, including: acute coronary syndromes, right heart strain/failure (including pulmonary embolism and cor pulmonale), critical illness, renal failure, as well as advanced age. - References: 1. Laly BARRERA et.al. Eur Heart J. 2006:27:330-337. 2. Pavel RW, Teha CHRISTIAN. J. AM Miki Cardiol: Cardiovasc Imag. 2009;2: 216- 225. Interpretive Data Last Revised Date: 2017. Blood 07/19/2024 8:33 PM CDT 07/19/2024 8:50 PM CDT us Jennifer Esquivel MD LAB BLOOD ORDERABLES Final Result [facility] [address] Department [place] [address] * (ABNORMAL) CBC with auto differential (07/19/2024 8:33 PM CDT) WBC 6.03 3.80 - 9.90 K/cumm Hgb 12.4 11.9 - 15.5 g/dL [facility] Hct 39.0 35.6 - 45.5 % [facility] Plt 248 150 - 400 K/cumm [facility] MPV 10.9 9.1 - 12.3 fL [facility] RBC 4.31 3.90 - 5.20 M/cumm [facility] MCV 90.5 81.3 - 96.4 fL [facility] MCH 28.8 27.1 - 33.3 pg [facility] MCHC 31.8(L) 32.3 - 35.7 g/dL [facility] RDW CV 14.4 11.1 - 14.9 % [facility] RDW SD 48.0 35.7 - 48.1 fL [facility] NRBC abs 0.00 0.00 - 0.01 K/cumm [facility] Blood 07/19/2024 8:33 PM CDT 07/19/2024 8:50 PM CDT us Jennifer Esquivel MD LAB BLOOD ORDERABLES Final Result [facility] [address] Department [place] [address] * (ABNORMAL) Comprehensive metabolic panel (07/19/2024 8:33 PM CDT) Sodium 143 135 - 145 mmol/L Potassium, pl 4.2 3.3 - 4.9 mmol/L [facility] Comment:Hemolyzed; potassium value may be falsely elevated by as much as 0.3 - 0.5 mmol/L. Suggest redraw and reanalysis Chloride 106 97 - 110 mmol/L [facility] CO2 23 22 - 32 mmol/L [facility] Anion gap 14 2 - 15 mmol/L [facility] BUN 17 6 - 25 mg/dL [facility] Creatinine 0.84 0.60 - 1.10 mg/dL [facility] Glucose 131 70 - 199 mg/dL [facility] Comment: Interpretive Data Fasting glucose >/= 126 mg/dl is diagnostic for diabetes. Fasting is defined as no caloric intake for at least 8 hours. Fasting glucose between 100 mg/dl to 125 mg/dl is diagnostic of prediabetes. In a patient with classic symptoms of hyperglycemia or hyperglycemic crisis, a random glucose >/= 200 mg/dl is diagnostic for diabetes. In the absence of unequivocal hyperglycemia, results should be confirmed by repeat testing. The classification and Diagnosis of Diabetes Diabetes Care 2021; 46: S19-S40. Current interpretive data was last revised 2022. Calcium 9.4 8.5 - 10.3 mg/dL [facility] Bilirubin, total 0.4 0.1 - 1.2 mg/dL [facility] Protein, pl 6.7 6.5 - 8.5 g/dL [facility] Albumin 4.1 3.5 - 5.0 g/dL [facility] Alk phos 87 40 - 130 Units/L [facility] ALT 30 7 - 45 Units/L [facility] AST 56(H) 10 - 45 Units/L [facility] Comment:Slightly Hemolyzed S pecimen Blood 07/19/2024 8:33 PM CDT 07/19/2024 8:50 PM CDT us Jennifer Esquivel MD LAB BLOOD ORDERABLES Final Result Performing Organization Address City/[facility]/ZIP Co de Phone Number [facility] [address] Department [place] [address] * ECG 12 lead (07/19/2024 8:24 PM CDT) 07/19/2024 8:24 PM CDT Narrative [facility] - 07/21/2024 3:20 PM CDT Vent Rate: 65 bpm RR Interval: 919 msec OR Interval: 165 msec QRS Duration: 97 msec QT Interval: 405 msec QTC Interval: 416 msec P-R-T [place]: 49 - -11 - 47 degrees IMPRESSION: SINUS RHYTHM NORMAL ECG Electronically Signed By: Lucien Lennon MD Chris Danielle MD ECG ORDERABLES Final Result Performing Organization Address [facility] Co de Phone Number [employer] [facility] * CTA Heart and Coronary Arteries W Morphology when Performed (07/19/2024 12:59 PM CDT) Anatomical Region Laterality Modality Chest N/A Computed Tomogra phy 07/19/2024 4:27 PM CDT Impressions 07/19/2024 5:28 PM CDT 1. There is mixed calcified and noncalcified atherosclerotic disease of all 3 coronary vessels with up to near occlusion of the proximal left anterior descending artery as described above. Catheter coronary angiography is recommended. . 2. Calcium score is 273.4. The Critical results were discussed with Dr. Mckee by Dr. Thorne on 07/19/2024 at 07/19/2024 Dictated by: Natalia Thorne MD The radiology attending physician has personally reviewed this study, and had reviewed and/or edited this written report and agrees with it. Electronically signed by: Neeraj George M.D. Narrative 07/19/2024 5:28 PM CDT EXAMINATION: CORONARY CT ANGIOGRAM HISTORY: Chest pain/anginal equivalent. Intermediate CAD risk. TECHNIQUE: CT angiography of the coronary arteries was performed after the administration of 100 mL of Optiray 350. Images were also obtained precontrast for the purposes of calcium scoring. Prior to the examination, 0 mg of metoprolol was administered intravenously and 0.8 mg nitroglycerin was administered sublingually. The patient's heart rate at the time of the examination was 58 beats per minute. Images were transferred to a 3D workstation for additional post-processing. FINDINGS: The coronary arteries are co system dominant. There is no anomalous coronary origin or course. No focal caliber change or irregularity to suggest coronary artery dissection. Right coronary system: There is mild occlusion (~40%) of the proximal RCA secondary to mixed calcified and noncalcified atherosclerotic plaque. There is mild stenosis of the mid-RCA secondary to calcified atherosclerotic plaque. Left coronary system: There is mild (25-50%) stenosis of the proximal LAD secondary to mixed calcified and noncalcified atherosclerotic plaque. There is near complete stenosis at the proximal and mid left anterior descending artery extending into the diagonal artery secondary to mixed calcified and noncalcified atherosclerotic plaque with distal recanalization. There is mild (25-50%) stenosis of the proximal left circumflex artery secondary to calcified atherosclerotic plaque.. The calculated calcium score is 273.4. Other findings: Mild bibasilar atelectasis. No pericardial effusion. Heart size is normal. Multilevel degenerative disc disease. Circumferential thickening of the distal esophagus could represent sequelae of esophagitis. Procedure Note Neeraj George MD - 07/19/2024 EXAMINATION: CORONARY CT ANGIOGRAM HISTORY: Chest pain/anginal equivalent. Intermediate CAD risk. TECHNIQUE: CT angiography of the coronary arteries was performed after the administration of 100 mL of Optiray 350. Images were also obtained precontrast for the purposes of calcium scoring. Prior to the examination, 0 mg of metoprolol was administered intravenously and 0.8 mg nitroglycerin was administered sublingually. The patient's heart rate at the time of the examination was 58 beats per minute. Images were transferred to a 3D workstation for additional post-processing. FINDINGS: The coronary arteries are co system dominant. There is no anomalous coronary origin or course. No focal caliber change or irregularity to suggest coronary artery dissection. Right coronary system: There is mild occlusion (~40%) of the proximal RCA secondary to mixed calcified and noncalcified atherosclerotic plaque. There is mild stenosis of the mid-RCA secondary to calcified atherosclerotic plaque. Left coronary system: There is mild (25-50%) stenosis of the proximal LAD secondary to mixed calcified and noncalcified atherosclerotic plaque. There is near complete stenosis at the proximal and mid left anterior descending artery extending into the diagonal artery secondary to mixed calcified and noncalcified atherosclerotic plaque with distal recanalization. There is mild (25-50%) stenosis of the proximal left circumflex artery secondary to calcified atherosclerotic plaque.. The calculated calcium score is 273.4. Other findings: Mild bibasilar atelectasis. No pericardial effusion. Heart size is normal. Multilevel degenerative disc disease. Circumferential thickening of the distal esophagus could represent sequelae of esophagitis. IMPRESSION: 1. There is mixed calcified and noncalcified atherosclerotic disease of all 3 coronary vessels with up to near occlusion of the proximal left anterior descending artery as described above. Catheter coronary angiography is recommended. . 2. Calcium score is 273.4. The Critical results were discussed with Dr. Mckee by Dr. Thorne on 07/19/2024 at 07/19/2024 Dictated by: Natalia Thorne MD The radiology attending physician has personally reviewed this study, and had reviewed and/or edited this written report and agrees with it. Electronically signed by: Neeraj George M.D. us Ortiz Mckee MD PhD IMG CT PROCEDURES Marcelina l Result * TRANSTHORACIC ECHO (TTE) COMPLETE W DOPPLER/CF W CONTRAST (07/19/2024 12:37 PM CDT) Anatomical Region Laterality Modality Ultrasound 07/19/2024 11:3 3 AM CDT Narrative 07/19/2024 2:03 PM CDT [facility] [place] [address] Transthoracic Echocardiographic Report Patient Name: LINSEY ARNOLD S : 1960 (64y 5m) Gender: F Study Date: 07/19/2024 11:33:36 AM Ht(Inch): 67 Wt(Lb): 283.29 BSA: 2.46 Clinical Dietetic Technician: ELAN Location: [facility] Order Provider: ORTIZ MCKEE Heart Rate: 66 BMI: 44.36 BP: 174 / 80 Ref Provider: ORTIZ MCKEE PROCEDURES: Echocardiographic Report: Transthoracic complete echo with contrast, 2D, spectral and tissue Doppler, color flow Doppler, M-mode. Contrast: Contrast Enhancement was Employed: After initial imaging due to sub- optimal quality related to co-morbidity defined by patient's body habitus and due to suboptimal image quality with inadequate visualization of at least 2 of 16 LV wall segments in any view after initial imaging. Perflutren contrast was administered using the volume necessary to obtain adequate images. 0.23 ml Definity Administered, (1.27 ml wasted). Technically difficult study due to: Body habitus. Poor acoustic windows. Limited visualization of some cardiac structures precludes the ability to obtain complete measurements - INDICATIONS: R07.89 Other chest pain. CONCLUSIONS: 1. Mildly dilated left ventricle based on volume index. Concentric LV remodeling. There is hyperdynamic left ventricular systolic function. The Ejection Fraction (Valderrama's) is measured at 79 %. 2. Normal right ventricular size. ATTESTATION: I have personally reviewed and interpreted this study without fellow or resident. - DISCLAIMER: The study images and the final report will be retained in the patient chart by the Echo Laboratory for the legally required time period. This chart constitutes the legal record of any testing performed. FINDINGS: Left Ventricle: Mildly dilated left ventricle based on volume index. Concentric LV remodeling. There is hyperdynamic left ventricular systolic function. The Ejection Fraction (Valderrama's) is measured at 79 %. Right Ventricle: Normal right ventricular size. Left Atrium: The left atrium is normal in size. Right Atrium: The right atrium is normal in size. Mitral Valve: Normal mitral valve structure. No mitral regurgitation. No stenosis present. Aortic Valve: Normal trileaflet aortic valve. Mild aortic valve regurgitation. Mild aortic valve stenosis. The mean transaortic gradient is 10 mmHg. The aortic valve area by the continuity equation (using VTI) is 2.5 cm2. Aortic valve dimensionless index is 0.80. Tricuspid Valve: Normal Tricuspid valve structure. Mild tricuspid regurgitation. The estimated right ventricular systolic pressure is 25 mmHg. Pulmonic Valve: Normal pulmonic valve structure. No pulmonic regurgitation. No pulmonic valve stenosis present. Pericardium: There is an anterior echo free space consistent with epicardial fat pad. Aorta: Normal aortic root size at sinuses of Valsalva. Normal aortic root size when indexed. PASP: Normal estimated pulmonary artery systolic pressure. Rhythm: Normal Sinus rhythm was seen during the study. MEASUREMENTS: 2D/MM Value Range Doppler Value Range LVIDd 2D 4.69 cm [ 3.80 - 5.20 ] AV Peak Jerel 2.0 m/s [ 1.0 - 1.7 ] LVIDs 2D 3.26 cm [ 2.20 - 3.50 ] AV Peak PG 16.00 mmHg IVSd 2D 1.18 cm [ 0.60 - 0.90 ] AV Mean PG 10 mmHg LVPWd 2D 1.23 cm [ 0.60 - 0.90 ] AV VTI 43.0 cm LV Thickness Ratio 1.0 LVOT Peak Jerel 1.4 m/s [ 0.7 - 1.1 ] LV FS 2D 30.45 % [ 27.00 - 45.00 ] LVOT Peak PG 7.84 mmHg LV Mass 2D 215.85 g LVOT Mean PG 5 mmHg LV Mass Index 2D 87.74 g/m2 LVOT VTI 34.3 cm RWT 0.52 LVOT Diam 2.00 cm EDV Mod BP 166.51 ml [ 46.00 - 106.00 ] MIRA VTI 2.50 cm2 LV EDV Index 67.69 ml/m2 LVOT/AV VTI 0.80 - Dimensionless index (DVI) ESV Mod BP 35.06 ml [ 14.00 - 42.00 ] AI Peak Jerel 4.6 m/s EF Mod BP 79 % [ 54 - 74 ] AI Peak PG 83 mmHg LA Length 4C 6.06 cm AI Decel Time 2904.90 sec LA Length 2C 5.53 cm AI Decel [place] 1.57 m/s2 LA Volume BP 75.94 ml AI PHT 842.42 msec LA Volume Index 30.87 ml/m2 [ 16.00 - 34.00 ] MV E Peak Jerel 0.8 m/s [ 0.6 - 1.3 ] RV Base Dimen 2D 3.1 cm [ 2.5 - 4.2 ] MV A Peak Jerel 0.9 m/s [ 1.0 - 1.2 ] RA Volume 35.34 ml MV E/A 0.8 ratio [ 0.8 - 1.5 ] RA Volume Index 14.37 ml/m2 MV Decel Time 192.73 msec [ 104.00 - 258.00 ] AoR Diam 2D 2.97 cm [ 2.70 - 3.70 ] Med E` Jerel 6.4 cm/sec [ 8.0 - 25.0 ] Ao Root Index 1.21 cm/m2 [ 1.00 - 2.00 ] Lat E` Jerel 11.6 cm/sec [ 10.0 - 25.0 ] Average E/E` 8.89 RV S` 9.86 cm/sec TR Peak Jerel 2.5 m/s [ 1.0 - 2.8 ] TR Peak PG 25.0 mmHg Electronically Signed By: Todd Pruitt MD 07/19/2024 2:03:03 PM CDT Procedure Note Todd Pruitt MD - 07/19/2024 [facility] Cardiac [place] [address] Transthoracic Echocardiographic Report Patient Name: LINSEY ARNOLD S : 1960 (64y 5m) Gender: F Study Date: 07/19/2024 11:33:36 AM Ht(Inch): 67 Wt(Lb): 283.29 BSA: 2.46 Clinical Dietetic Technician: ELAN Location: [facility] Order Provider: ORTIZ MKCEE Heart Rate: 66 BMI: 44.36 BP: 174 / 80 Ref Provider: ORTIZ MCKEE PROCEDURES: Echocardiographic Report: Transthoracic complete echo with contrast, 2D,spectral and tissue Doppler, color flow Doppler, M-mode. Contrast: Contrast Enhancement was Employed: After initial imaging due tosub- optimal quality related to co-morbidity defined by patient's body habitus and dueto suboptimal image quality with inadequate visualization of at least 2 of 16 LV wallsegments in any view after initial imaging. Perflutren contrast was administered using thevolume necessary to obtain adequate images. 0.23 ml Definity Administered, (1.27ml wasted). Technically difficult study due to: Body habitus. Poor acoustic windows.Limited visualization of some cardiac structures precludes the ability to obtaincomplete measurements - INDICATIONS: R07.89 Other chest pain. CONCLUSIONS: 1. Mildly dilated left ventricle based on volume index. Concentric LVremodeling. There is hyperdynamic left ventricular systolic function. The Ejection Fraction(Valderrama's) is measured at 79 %. 2. Normal right ventricular size. ATTESTATION: I have personally reviewed and interpreted this study without fellow orresident. - DISCLAIMER: The study images and the final report will be retained in the patientchart by the Echo Laboratory for the legally required time period. This chart constitutesthe legal record of any testing performed. FINDINGS: Left Ventricle: Mildly dilated left ventricle based on volume index.Concentric LV remodeling. There is hyperdynamic left ventricular systolic function. TheEjection Fraction (Valderrama's) is measured at 79 %. Right Ventricle: Normal right ventricular size. Left Atrium: The left atrium is normal in size. Right Atrium: The right atrium is normal in size. Mitral Valve: Normal mitral valve structure. No mitral regurgitation. Nostenosis present. Aortic Valve: Normal trileaflet aortic valve. Mild aortic valveregurgitation. Mild aortic valve stenosis. The mean transaortic gradient is 10 mmHg. Theaortic valve area by the continuity equation (using VTI) is 2.5 cm2. Aortic valve dimensionlessindex is 0.80. Tricuspid Valve: Normal Tricuspid valve structure. Mild tricuspidregurgitation. The estimated right ventricular systolic pressure is 25 mmHg. Pulmonic Valve: Normal pulmonic valve structure. No pulmonicregurgitation. No pulmonic valve stenosis present. Pericardium: There is an anterior echo free space consistent withepicardial fat pad. Aorta: Normal aortic root size at sinuses of Valsalva. Normal aortic rootsize when indexed. PASP: Normal estimated pulmonary artery systolic pressure. Rhythm: Normal Sinus rhythm was seen during the study. MEASUREMENTS: 2D/MM Value Range DopplerValue Range LVIDd 2D 4.69 cm [ 3.80 - 5.20 ] AV Peak Vel2.0 m/s [ 1.0 - 1.7 ] LVIDs 2D 3.26 cm [ 2.20 - 3.50 ] AV Peak PG16.00 mmHg IVSd 2D 1.18 cm [ 0.60 - 0.90 ] AV Mean PG10 mmHg LVPWd 2D 1.23 cm [ 0.60 - 0.90 ] AV VTI43.0 cm LV Thickness Ratio 1.0 LVOT Peak Vel1.4 m/s [ 0.7 - 1.1 ] LV FS 2D 30.45 % [ 27.00 - 45.00 ] LVOT Peak PG7.84 mmHg LV Mass 2D 215.85 g LVOT Mean PG5 mmHg LV Mass Index 2D 87.74 g/m2 LVOT VTI34.3 cm RWT 0.52 LVOT Diam2.00 cm EDV Mod BP 166.51 ml [ 46.00 - 106.00 ] MIRA VTI2.50 cm2 LV EDV Index 67.69 ml/m2 LVOT/AV VTI0.80 - Dimensionless index (DVI) ESV Mod BP 35.06 ml [ 14.00 - 42.00 ] AI Peak Vel4.6 m/s EF Mod BP 79 % [ 54 - 74 ] AI Peak PG83 mmHg LA Length 4C 6.06 cm AI Decel Epqm4324.90 sec LA Length 2C 5.53 cm AI Decel Slope1.57 m/s2 LA Volume BP 75.94 ml AI UKP172.42 msec LA Volume Index 30.87 ml/m2 [ 16.00 - 34.00 ] MV E Peak Vel0.8 m/s [ 0.6 - 1.3 ] RV Base Dimen 2D 3.1 cm [ 2.5 - 4.2 ] MV A Peak Vel0.9 m/s [ 1.0 - 1.2 ] RA Volume 35.34 ml MV E/A0.8 ratio [ 0.8 - 1.5 ] RA Volume Index 14.37 ml/m2 MV Decel Lesa745.73 msec [ 104.00 - 258.00 ] AoR Diam 2D 2.97 cm [ 2.70 - 3.70 ] Med E` Vel6.4 cm/sec [ 8.0 - 25.0 ] Ao Root Index 1.21 cm/m2 [ 1.00 - 2.00 ] Lat E` Vel11.6 cm/sec [ 10.0 - 25.0 ] Average E/E` 8.89 RV S` 9.86 cm/sec TR Peak Jerel 2.5 m/s [ 1.0 - 2.8 ] TR Peak PG 25.0 mmHg Electronically Signed By: Todd Pruitt MD 07/19/2024 2:03:03 PM CDT us Ortiz Mckee MD PhD CV ECHO PROCEDURES Fin al Result * POC ISTAT (07/19/2024 12:24 PM CDT) Creatinine, POC, bld 0.9 0.6 - 1.3 mg/dL POC Device Number [id number] [facility] POC Performer [id number] [facility] Blood 07/19/2024 12:2 4 PM CDT 07/19/2024 12:24 PM CDT Aileen Savage COTTON EXPERT LAB BLOOD ORDERABLES Final R esult [facility] [address] [facility]. Department [place] [address] * STRESS ECHO PHARMACOLOGIC W DOPPLER/CF W CONTRAST (06/05/2024 11:49 AM STAFF TRAINING AND DEVELOPMENT MANAGER) Anatomical Region Laterality Modality Ultrasound, Nucl ear Medicine 06/05/2024 11:1 4 AM STAFF TRAINING AND DEVELOPMENT MANAGER Narrative 06/05/2024 1:03 PM STAFF TRAINING AND DEVELOPMENT MANAGER [address] [address] Dobutamine Stress Echocardiogram Report Patient Name: LINSEY ARNOLD : 1960 Study Date: 06/05/2024 11:14:08 AM Gender: F Tech: COTTON EXPERT Ref Provider: LUCIEN PELLETIER Height(Cm): 173 BSA: Weight(Kg): 113.4 Quality: Good Order Provider: LUCIEN PELLETIER PROCEDURES: Dobutamine Stress Echo Report: Dobutamine stress echocardiogram with Optison. INDICATIONS: R06.09 Other forms of dyspnea. FINDINGS: Stress Data: Resting HR 61 bpm Peak HR: 144 bpm Predicted Maximal HR 155 bpm Target HR: 132 bpm Percent Max Predicted HR Achieved: 93 % Baseline BP: 140/91 Peak BP: 129/64 Resting ECG: Normal sinus rhythm at 61 beats per minute, normal axis. Supervising Physician: The Supervising Physician is teodoro holley. Reason for Termination: Target HR achieved. Pharmacologic ECG: Abnormal exercise ECG consistent with ischemia with [address] segment depression inferolaterally at the end of exercise. Resting Echo Findings: Normal global left ventricular size and systolic function with normal wall thickness and no focal wall motion abnormalities. Optison contrast agent used to visually enhance endocardial wall motion and contractility. Post Echo Findings: Hyperdynamic global contractility, no segmental wall motion abnormality, chamber size smaller. Optison contrast agent used to visually enhance endocardial wall motion and contractility. CONCLUSIONS: Adequate stress test in regards to heart rate with the patient achieving 92% of predicted maximum heart rate. No exercise induced chest pain. No Echocardiographic evidence of ischemia. However, patient had [address] segment depression inferolaterally. Consider cardiology consultation if clinically indicated. Electronically Signed By: Dr Teodoro Holley 06/05/2024 1:02:34 PM STAFF TRAINING AND DEVELOPMENT MANAGER Procedure Note Teodoro Holley MD - 06/05/[address] [place] [address] Dobutamine Stress Echocardiogram Report Patient Name: LINSEY ARNOLD : 1960 Study Date: 06/05/2024 11:14:08 AM Gender: F Tech: COTTON EXPERT Ref Provider: LUCIEN PELLETIER Height(Cm): 173 BSA: Weight(Kg): 113.4 Quality: Good Order Provider: LUCIEN PELLETIER PROCEDURES: Dobutamine Stress Echo Report: Dobutamine stress echocardiogram with Optison. INDICATIONS: R06.09 Other forms of dyspnea. FINDINGS: Stress Data: Resting HR 61 bpm Peak HR: 144 bpm Predicted Maximal HR 155 bpm Target HR: 132 bpm Percent Max Predicted HR Achieved: 93 % Baseline BP: 140/91 Peak BP: 129/64 Resting ECG: Normal sinus rhythm at 61 beats per minute, normal axis. Supervising Physician: The Supervising Physician is teodoro holley. Reason for Termination: Target HR achieved. Pharmacologic ECG: Abnormal exercise ECG consistent with ischemia with [address] depression inferolaterally at the end of exercise. Resting Echo Findings: Normal global left ventricular size and systolic function with normal wallthickness and no focal wall motion abnormalities. Optison contrast agent used tovisually enhance endocardial wall motion and contractility. Post Echo Findings: Hyperdynamic global contractility, no segmental wall motion abnormality,chamber size smaller. Optison contrast agent used to visually enhance endocardial wallmotion and contractility. CONCLUSIONS: Adequate stress test in regards to heart rate with the patient fmtmpdemu53% of predicted maximum heart rate. No exercise induced chest pain. No Echocardiographic evidence of ischemia. However, patient had [address] segment depressioninferolaterally. Consider cardiology consultation if clinically indicated. Electronically Signed By: Dr Teodoro Holley 06/05/2024 1:02:34 PM STAFF TRAINING AND DEVELOPMENT MANAGER us Lucien Pelletier MD CV ECHO PROCEDURES Final Result * eGFR (05/31/2024 2:29 PM STAFF TRAINING AND DEVELOPMENT MANAGER) eGFR 82 >=60 mL/min/1. 73 m2 Comment: Interpretive Data Reference Interval Normal >/= 90 mL/min/1.73m2 Mildly decreased* 60 - 89 mL/min/1.73m2 Mildly to moderately decreased 45 - 59 mL/min/1.73m2 Moderately to severely decreased 30 - 44 mL/min/1.73m2 Severely decreased 15 - 29 mL/min/1.73m2 Kidney Failure < 15 mL/min/1.73m2 *Relative to young adult level Estimated glomerular filtration rate is determined by the 2020 CKD-EPI equation recommended by the National Kidney Foundation (A Unifying Approach to GFR Estimation: Recommendations of the NKF-ASK Task Force on Reassessing the Inclusion of Race in Diagnosing Kidney Disease, JASN 2020). The CKD-EPI equation should not be used for patients with unstable renal function and has not been validated in children and those over 70. Current interpretive data was last reviewed 2021. Blood 05/31/2024 2:29 PM STAFF TRAINING AND DEVELOPMENT MANAGER 05/31/2024 2:32 PM STAFF TRAINING AND DEVELOPMENT MANAGER us Karol Dexter NP LAB BLOOD ORDERABLES Final Resul t [facility] [address] [facility]. [place] [address] * (ABNORMAL) CBC without differential (05/31/2024 2:29 PM STAFF TRAINING AND DEVELOPMENT MANAGER) Pathologist [facility] WBC 5.2 3.8 - 9.9 K/cumm Hgb 13.6 11.9 - 15.5 g/dL [facility] Hct 43.5 35.6 - 45.5 % [facility] Plt 245 150 - 400 K/cumm [facility] MPV 10.4 9.1 - 12.3 fL [facility] RBC 4.72 3.90 - 5.20 M/cumm [facility] MCV 92.2 81.3 - 96.4 fL [facility] MCH 28.8 27.1 - 33.3 pg [facility] MCHC 31.3(L) 32.3 - 35.7 g/dL [facility] RDW CV 14.7 11.1 - 14.9 % [facility] RDW SD 49.8(H) 35.7 - 48.1 fL [facility] NRBC abs 0.00 0.00 - 0.01 K/cumm [facility] Blood 05/31/2024 2:29 PM STAFF TRAINING AND DEVELOPMENT MANAGER 05/31/2024 2:32 PM STAFF TRAINING AND DEVELOPMENT MANAGER Karol Dexter NP LAB BLOOD ORDERABLES Final Resul t Performing Organization Address [facility] de Phone Number [facility] [address] [place], [place] [id number] * Phosphorus (05/31/2024 2:29 PM STAFF TRAINING AND DEVELOPMENT MANAGER) Pathologist [facility] Phosphorus, pl 2.5 2.3 - 4.5 mg/dL Blood 05/31/2024 2:29 PM STAFF TRAINING AND DEVELOPMENT MANAGER 05/31/2024 2:32 PM STAFF TRAINING AND DEVELOPMENT MANAGER Karol Dexter NP LAB BLOOD ORDERABLES Final Resul t Performing Organization Address [facility] Co de Phone Number [facility] [address] [place], [place] [id number] * Magnesium (05/31/2024 2:29 PM STAFF TRAINING AND DEVELOPMENT MANAGER) Magnesium 2.0 1.4 - 2.5 mg/dL Comment: Reference Data. Reference values for Labor and Delivery patients: < or = 0.7 mg/dL to > or = 7.3 mg/dL Current reference data last reviewd on 01/07/2015. Blood 05/31/2024 2:29 PM STAFF TRAINING AND DEVELOPMENT MANAGER 05/31/2024 2:32 PM STAFF TRAINING AND DEVELOPMENT MANAGER us Karol Dexter NP LAB BLOOD ORDERABLES Final Resul t [facility] [address] [facility]. [place] [address] * (ABNORMAL) Comprehensive metabolic panel (05/31/2024 2:29 PM STAFF TRAINING AND DEVELOPMENT MANAGER) Sodium 137 135 - 145 mmol/L Potassium, pl 3.7 3.3 - 4.9 mmol/L [facility] Chloride 99 97 - 110 mmol/L [facility] CO2 26 22 - 32 mmol/L [facility] Anion gap 12 2 - 15 mmol/L [facility] BUN 22 6 - 25 mg/dL [facility] Creatinine 0.80 0.60 - 1.10 mg/dL [facility] Glucose 118 70 - 199 mg/dL [facility] Comment: Interpretive Data Fasting glucose >/= 126 mg/dl is diagnostic for diabetes. Fasting is defined as no caloric intake for at least 8 hours. Fasting glucose between 100 mg/dl to 125 mg/dl is diagnostic of prediabetes. In a patient with classic symptoms of hyperglycemia or hyperglycemic crisis, a random glucose >/= 200 mg/dl is diagnostic for diabetes. In the absence of unequivocal hyperglycemia, results should be confirmed by repeat testing. The classification and Diagnosis of Diabetes Diabetes Care 202; 46: S19-S40. Current interpretive data was last revised 2022. Calcium 9.2 8.5 - 10.3 mg/dL [facility] Bilirubin, total 0.9 0.1 - 1.2 mg/dL [facility] Protein, pl 6.9 6.5 - 8.5 g/dL [facility] Albumin 4.0 3.5 - 5.0 g/dL [facility] Alk phos 74 40 - 130 Units/L [facility] ALT 34 7 - 45 Units/L [facility] AST 55(H) 10 - 45 Units/L [facility] Blood 05/31/2024 2:29 PM STAFF TRAINING AND DEVELOPMENT MANAGER 05/31/2024 2:32 PM STAFF TRAINING AND DEVELOPMENT MANAGER us Karol Dexter COTTON EXPERT LAB BLOOD ORDERABLES Final Resul t [facility] [address] [facility]. Department [place] [address] * XR Abdomen 1 View AP (05/31/2024 9:45 AM STAFF TRAINING AND DEVELOPMENT MANAGER) Anatomical Region Laterality Modality Body, Abdomen N/A Computed Radiogr aphy 05/31/2024 10:2 8 AM STAFF TRAINING AND DEVELOPMENT MANAGER Narrative 05/31/2024 10:35 AM STAFF TRAINING AND DEVELOPMENT MANAGER EXAM DESCRIPTION: XR ABDOMEN AP 1 VIEW REASON FOR STUDY: kidney stone Kidney stone c/o vomiting since two nights ago. Pt reports hx of gallstone and colon cancer. TECHNIQUE: AP supine radiographic view of the abdomen. COMPARISON: CT dated 05/30/2024. FINDINGS: BOWEL: There are dilated loops of small bowel wall, most evident within the central mid to lower abdomen and within the left lower quadrant. Distension of small-bowel loops in the left lower quadrant has increased compared to the power tool repairer radiograph obtained on CT yesterday. There is scattered stool within the colon, most evident within the right hemicolon. Evaluation for free air limited on this examination. SOFT TISSUES: Right renal calculus measuring approximately 1.3 cm, better demonstrated on recent CT study. LINES/TUBES: None. BONES: Scoliotic curvature of the thoracolumbar spine. 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 IMPRESSION: 1. Dilated air-filled loops of small bowel in the mid abdomen and left lower quadrant. The degree of distension does appear greater than on power tool repairer image from CT scan performed yesterday, suggesting progression of previously documented partial small bowel obstruction. Re-evaluation with CT abdomen and pelvis can be obtained as warranted clinically. Follow-up imaging will be necessary until resolution of bowel distension and clinical symptoms. 2. No definitive free air though assessment limited on this study given supine positioning. Findings were conveyed to Dr. Solo via phone call at 10:31 a.m. on 05/31/2024 THIS IS AN ELECTRONICALLY VERIFIED FINAL REPORT 05/31/2024 10:35 AM - Electronically signed by Rae Reynolds M.D. TW: TW Report ID: [id number] Reading Location: [id number] Procedure Note Rae Reynolds MD - 05/31/2024 EXAM DESCRIPTION: XR ABDOMEN AP 1 VIEW REASON FOR STUDY: kidney stone Kidney stone c/o vomiting since two nights ago. Pt reports hx ofgallstone and colon cancer. TECHNIQUE: AP supine radiographic view of the abdomen. COMPARISON: CT dated 05/30/2024. FINDINGS: BOWEL: There are dilated loops of small bowel wall, most evident withinthe central mid to lower abdomen and within the left lower quadrant.Distension of small-bowel loops in the left lower quadrant has increased compared tothe power tool repairer radiograph obtained on CT yesterday. There is scattered stoolwithin the colon, most evident within the right hemicolon. Evaluation for freeair limited on this examination. SOFT TISSUES: Right renal calculus measuring approximately 1.3 cm, better demonstrated on recent CT study. LINES/TUBES: None. BONES: Scoliotic curvature of the thoracolumbar spine. Osteoarthritis ofthe hips and SI joints. IMPRESSION: 1. Dilated air-filled loops of small bowel in the mid abdomen and leftlower quadrant. The degree of distension does appear greater than on scoutimage from CT scan performed yesterday, suggesting progression of previously documented partial small bowel obstruction. Re-evaluation with CT abdomenand pelvis can be obtained as warranted clinically. Follow-up imaging will be necessary until resolution of bowel distension and clinical symptoms. 2. No definitive free air though assessment limited on this study given supine positioning. Findings were conveyed to Dr. Solo via phone call at 10:31 a.m. on 05/31/2024 THIS IS AN ELECTRONICALLY VERIFIED FINAL REPORT 05/31/2024 10:35 AM - Electronically signed by Rae Reynolds M.D. TW: TW Report ID: [id number] Reading Location: [id number] us Naif Peguero MD IMG XR PROCEDURES Fi nal Result * Troponin T high-sensitivity series (baseline, 2hr, 4hr, 6hr) (05/30/2024 4:39 PM STAFF TRAINING AND DEVELOPMENT MANAGER) Trop T hs 12 <=14 ng/L Comment: Interpretive Data For further hscTnT resources including the diagnostic algorithm and an aid in interpretation, copy and paste this link: https://nrl.testcatalog.org/show/hsTrop Current Interpretive Data last revised 2020. Blood 05/30/2024 4:39 PM STAFF TRAINING AND DEVELOPMENT MANAGER 05/30/2024 4:41 PM STAFF TRAINING AND DEVELOPMENT MANAGER us Barry Infante MD LAB BLOOD ORDERABLES Final Result [facility] C[facility] ([place] [facility] Department [place] [address] * Pro B-type natriuretic peptide (05/30/2024 4:39 PM STAFF TRAINING AND DEVELOPMENT MANAGER) NT-proBNP <36 <=300 pg/mL Comment: Interpretive Comments: A. Dyspnea in Acute Care Setting All Ages: < 300 pg/ml, acute heart failure unlikely. < 50 yrs: 300 - 450 pg/ml, further investigation warranted. > 450 pg/ml, acute heart failure likely. 50 - 74 yrs: 300 - 900 pg/ml, further investigation warranted. > 900 pg/ml, acute heart failure likely . > or = 75 yrs: 450 - 1800 pg/ml, further investigation warranted. > 1800 pg/ml, acute heart failure likely. B. Non-acute Setting < 75 yrs < 125 pg/ml, rules out heart failure. > or = 125 pg/ml, further investigation warranted. > or = 75 yrs < 450 pg/ml, rules out heart failure. > or = 450 pg/ml, further investigation warranted. - Knowledge of each individual patient's NT-proBNP range may be more useful than using similar cut-points for every patient. Please note that marked elevations in NT-proBNP levels may be observed in state other than Left Ventricular Congestive Failure, including: acute coronary syndromes, right heart strain/failure (including pulmonary embolism and cor pulmonale), critical illness, renal failure, as well as advanced age. - References: 1. Laly BARRERA et.al. Eur Heart J. 2006:27:330-337. 2. Pavel RW, Thea CHRISTIAN. J. AM Miki Cardiol: Cardiovasc Imag. 2009;2: 216- 225. Interpretive Data Last Revised Date: 2017. Blood 05/30/2024 4:39 PM STAFF TRAINING AND DEVELOPMENT MANAGER 05/30/2024 4:41 PM STAFF TRAINING AND DEVELOPMENT MANAGER Barry Infante MD LAB BLOOD ORDERABLES Final Result Performing Organization Address City/[facility] Co de Phone Number [facility] [address] Department [place] [address] * ECG 12 lead (05/30/2024 4:03 PM STAFF TRAINING AND DEVELOPMENT MANAGER) 05/30/2024 4:03 PM STAFF TRAINING AND DEVELOPMENT MANAGER Narrative [facility] - 05/30/2024 8:06 PM STAFF TRAINING AND DEVELOPMENT MANAGER Vent Rate: 80 bpm RR Interval: 747 msec OR Interval: 158 msec QRS Duration: 98 msec QT Interval: 361 msec QTC Interval: 397 msec P-R-T [place]: 54 - 9 - 66 degrees IMPRESSION: SINUS RHYTHM NONSPECIFIC T-WAVE ABNORMALITY BORDERLINE ECG Electronically Signed By: Davion Leggett MD Barry Infante MD ECG ORDERABLES Final Resul t Performing Organization Address City/[facility]/ZIP Co de Phone Number [employer] [facility] * CT Chest PE (CTA) Abdomen Pelvis W Contrast (05/30/2024 3:35 PM STAFF TRAINING AND DEVELOPMENT MANAGER) Anatomical Region Laterality Modality Body N/A Computed Tomogra phy 05/30/2024 4:36 PM STAFF TRAINING AND DEVELOPMENT MANAGER Narrative 05/30/2024 4:44 PM STAFF TRAINING AND DEVELOPMENT MANAGER EXAM DESCRIPTION: CT CHEST PE (CTA) ABDOMEN PELVIS W CONTRAST REASON FOR STUDY: h/o colon cancer, swelling right lower abd, increasing PAGAN, leg edema TECHNIQUE: CT angiogram of the chest with routine abdomen and pelvis performed with intravenous and without oral contrast using helical scanning technique with dynamic intravenous contrast injection. Reconstructed coronal and sagittal MPR images reviewed. All images stored on PACS. 3D MIP rendering was not performed. Automated exposure control was used as a dose optimization technique for this examination. CONTRAST TYPE/DOSE: 100mL of IOVERSOL 350 MG IODINE/ML INTRAVENOUS SYRINGE injected via intravenous COMPARISON: Gallbladder ultrasound from the same day, CT of the abdomen and pelvis from 07/14/2022, renal ultrasound from 12/03/2019, and chest CT from 07/07/2017 FINDINGS: CHEST CHEST VASCULATURE: No acute pulmonary thromboembolism. There is no evidence of an aortic aneurysm or dissection. LUNGS: No nodules or masses. No pneumonia. PLEURA: No effusion. No pneumothorax. MEDIASTINUM/LEONOR: No identified masses or abnormal nodes. HEART: Heart size is normal with no pericardial effusion. AXILLA: No adenopathy. CHEST WALL: No masses. No subcutaneous air. HARDWARE/LINES/TUBES: None. MUSCULOSKELETAL CHEST: There is multilevel lumbar spondylosis. ABDOMEN/PELVIS LIVER: The attenuation of the liver is lower than the spleen suggesting fatty change of the liver. The liver is enlarged measuring 19.2 cm in the craniocaudal dimension. GALLBLADDER: The gallbladder is decompressed with some high-density material suggesting small stones or sludge. BILE DUCTS: The common bile duct is dilated up to 2 cm in diameter. SPLEEN: Normal size. No focal lesions. PANCREAS: No identified cystic or solid masses. No significant calcifications. No adjacent inflammation or peripancreatic fluid collections. Pancreatic duct not dilated. ADRENALS: Normal. KIDNEYS/URINARY TRACT: Scattered subcentimeter renal cysts are noted bilaterally. There is a 1.7 cm right kidney stone. No hydronephrosis or hydroureter. Symmetric enhancement. Urinary bladder is unremarkable. GI: A large portion of the colon has been removed. There are mildly dilated and fluid-filled loops of small bowel with scattered air-fluid level seen.. A transition is noted at the surgical anastomosis. The bowel distal to the anastomosis is decompressed. PERITONEUM: No ascites or free air. RETROPERITONEUM: No mass or adenopathy. REPRODUCTIVE: No significant abnormality. VASCULATURE ABDOMEN: No abdominal aortic aneurysm. MUSCULOSKELETAL ABDOMEN PELVIS: There is a right curvature of the lumbar spine. Multilevel lumbar spondylosis is also seen. OTHER: There is a defect in the musculature of the right mid abdominal wall. There is herniation mesenteric fat through the defect with a 5.4 by 11.3 cm lobular fat containing hernia sac noted. A small fat containing umbilical hernia is also present. IMPRESSION: 1. No pulmonary embolism or other acute findings in the chest. 2. Partial small-bowel obstruction at the surgical anastomosis between the large and small bowel. 3. Hepatomegaly and hepatic steatosis. 4. Stones or sludge in the gallbladder lumen. 5. Right kidney stone. 6. Fat containing right anterior abdominal wall hernia. THIS IS AN ELECTRONICALLY VERIFIED FINAL REPORT 05/30/2024 4:44 PM - Electronically signed by Gen Iverson M.D. BS: BS Report ID: [id number] Reading Location: [id number] Procedure Note Gen Iverson MD - 05/30/2024 EXAM DESCRIPTION: CT CHEST PE (CTA) ABDOMEN PELVIS W CONTRAST REASON FOR STUDY: h/o colon cancer, swelling right lower abd, increasingDOE, leg edema TECHNIQUE: CT angiogram of the chest with routine abdomen and pelvisperformed with intravenous and without oral contrast using helical scanningtechnique with dynamic intravenous contrast injection. Reconstructed coronal and sagittal MPR images reviewed. All images stored on PACS. 3D MIP renderingwas not performed. Automated exposure control was used as a dose optimization technique for this examination. CONTRAST TYPE/DOSE: 100mL of IOVERSOL 350 MG IODINE/ML INTRAVENOUS SYRINGE injected via intravenous COMPARISON: Gallbladder ultrasound from the same day, CT of the abdomenand pelvis from 07/14/2022, renal ultrasound from 12/03/2019, and chest CTfrom 07/07/2017 FINDINGS: CHEST CHEST VASCULATURE: No acute pulmonary thromboembolism. There is noevidence of an aortic aneurysm or dissection. LUNGS: No nodules or masses. No pneumonia. PLEURA: No effusion. No pneumothorax. MEDIASTINUM/LEONOR: No identified masses or abnormal nodes. HEART: Heart size is normal with no pericardial effusion. AXILLA: No adenopathy. CHEST WALL: No masses. No subcutaneous air. HARDWARE/LINES/TUBES: None. MUSCULOSKELETAL CHEST: There is multilevel lumbar spondylosis. ABDOMEN/PELVIS LIVER: The attenuation of the liver is lower than the spleen suggestingfatty change of the liver. The liver is enlarged measuring 19.2 cm in the craniocaudal dimension. GALLBLADDER: The gallbladder is decompressed with some high-densitymaterial suggesting small stones or sludge. BILE DUCTS: The common bile duct is dilated up to 2 cm in diameter. SPLEEN: Normal size. No focal lesions. PANCREAS: No identified cystic or solid masses. No significant calcifications. No adjacent inflammation or peripancreatic fluidcollections. Pancreatic duct not dilated. ADRENALS: Normal. KIDNEYS/URINARY TRACT: Scattered subcentimeter renal cysts are noted bilaterally. There is a 1.7 cm right kidney stone. No hydronephrosis or hydroureter. Symmetric enhancement. Urinary bladder is unremarkable. GI: A large portion of the colon has been removed. There are mildlydilated and fluid-filled loops of small bowel with scattered air-fluid levelseen.. A transition is noted at the surgical anastomosis. The bowel distal to the anastomosis is decompressed. PERITONEUM: No ascites or free air. RETROPERITONEUM: No mass or adenopathy. REPRODUCTIVE: No significant abnormality. VASCULATURE ABDOMEN: No abdominal aortic aneurysm. MUSCULOSKELETAL ABDOMEN PELVIS: There is a right curvature of the lumbar spine. Multilevel lumbar spondylosis is also seen. OTHER: There is a defect in the musculature of the right mid abdominalwall. There is herniation mesenteric fat through the defect with a 5.4 by 11.3cm lobular fat containing hernia sac noted. A small fat containing umbilical hernia is also present. IMPRESSION: 1. No pulmonary embolism or other acute findings in the chest. 2. Partial small-bowel obstruction at the surgical anastomosis betweenthe large and small bowel. 3. Hepatomegaly and hepatic steatosis. 4. Stones or sludge in the gallbladder lumen. 5. Right kidney stone. 6. Fat containing right anterior abdominal wall hernia. THIS IS AN ELECTRONICALLY VERIFIED FINAL REPORT 05/30/2024 4:44 PM - Electronically signed by Gen Iverson M.D. BS: RAMSES Report ID: [id number] Reading Location: [id number] us Barry Infante MD IMG CT PROCEDURES Final Res ult * US Gallbladder (05/30/2024 3:25 PM STAFF TRAINING AND DEVELOPMENT MANAGER) Anatomical Region Laterality Modality Abdomen N/A Ultrasound 05/30/2024 4:34 PM STAFF TRAINING AND DEVELOPMENT MANAGER Narrative 05/30/2024 4:36 PM STAFF TRAINING AND DEVELOPMENT MANAGER EXAM DESCRIPTION: US GALLBLADDER REASON FOR STUDY: Cholecystitis TECHNIQUE: Ultrasound of the gallbladder was performed with grayscale imaging. COMPARISON: CT of the abdomen and pelvis from 07/14/2022 FINDINGS: GALLBLADDER: A wall echo shadow complex is consistent with a gallbladder filled with stones. The gallbladder is decompressed. No sonographic Larry's sign is apparent. The gallbladder wall is thickened. BILIARY SYSTEM: There is no evidence of intrahepatic or extrahepatic biliary ductal dilatation. The common bile duct is dilated up to 2.1 cm in diameter. LIVER: Decreased hepatic through transmission is consistent with fatty change of the liver. The liver is enlarged as it measures 19.6 cm in length. OTHER: There is a shadowing echogenic focus in the right kidney consistent with a nephrolith. IMPRESSION: 1. Hepatomegaly and evidence of hepatic steatosis. 2. Right nephrolith. 3. Dilated common bile duct. THIS IS AN ELECTRONICALLY VERIFIED FINAL REPORT 05/30/2024 4:36 PM - Electronically signed by Gen Iverson M.D. BS: RAMSES Report ID: [id number] Reading Location: [id number] Procedure Note Gen Iverson MD - 05/30/2024 EXAM DESCRIPTION: US GALLBLADDER REASON FOR STUDY: Cholecystitis TECHNIQUE: Ultrasound of the gallbladder was performed with grayscaleimaging. COMPARISON: CT of the abdomen and pelvis from 07/14/2022 FINDINGS: GALLBLADDER: A wall echo shadow complex is consistent with a gallbladder filled with stones. The gallbladder is decompressed. No sonographicMurphy's sign is apparent. The gallbladder wall is thickened. BILIARY SYSTEM: There is no evidence of intrahepatic or extrahepaticbiliary ductal dilatation. The common bile duct is dilated up to 2.1 cm indiameter. LIVER: Decreased hepatic through transmission is consistent with fattychange of the liver. The liver is enlarged as it measures 19.6 cm in length. OTHER: There is a shadowing echogenic focus in the right kidneyconsistent with a nephrolith. IMPRESSION: 1. Hepatomegaly and evidence of hepatic steatosis. 2. Right nephrolith. 3. Dilated common bile duct. THIS IS AN ELECTRONICALLY VERIFIED FINAL REPORT 05/30/2024 4:36 PM - Electronically signed by Gen Iverson M.D. BS: BS Report ID: [id number] Reading Location: [place] [id number] us Barry Infante MD IMG US PROCEDURES Final Res ult * (ABNORMAL) Urinalysis reflex to microscopic and culture Urine (05/30/2024 2:30 PM STAFF TRAINING AND DEVELOPMENT MANAGER) Color, ur Yellow Yellow Clarity, ur Clear Clear [facility] (ESTER) Specific gravity, ur 1.030 1.003 - 1.030 [facility] ([facility]) pH, urine 6.0 [facility] ([facility]) Comment: Interpretive Data U rine pH is affected by diet, medications, systemic acid-base disturbances, and renal tubular function. pH may affect urinary stone formation. For example, urine pH below 6.0 may help reduce the tendency for calcium phosphate stones and pH greater than 6.0 may reduce the tendency for uric acid stone formation. Source: [place] [employer] Current Interpretive Data was last revised on 2017 Protein, ur ql 1+(A) Negative [facility] ([facility]) Glucose, ur ql Negative Negative [facility] ([facility]) Ketones, ur 1+(A) Negative [facility] (ESTER) Bilirubin, ur Negative Negative [facility] (ESTER) Blood, ur Negative Negative [facility] (EST[facility]) Urobilinogen, ur 2.0(A) <2.0 mg/dL [facility] (EST[facility]) Nitrite, ur Negative Negative [facility] (ESTER) Leukocyte esterase, ur 2+(A) Negative [facility] ([facility]) UA reflex comment Reflex to microscopic UA will be performed. [facility] (ESTER) Urine 05/30/2024 2:30 PM STAFF TRAINING AND DEVELOPMENT MANAGER 05/30/2024 2:32 PM STAFF TRAINING AND DEVELOPMENT MANAGER us Barry Infante MD LAB MICROBIOLOGY - GENERAL ORDERABLES Final Result Performing Organization Address [facility] de Phone Number [facility] (ESTER) 1 [facility] [place] [address] * (ABNORMAL) Urinalysis, microscopic only (05/30/2024 2:30 PM STAFF TRAINING AND DEVELOPMENT MANAGER) WBC, ur 0-5 0 - 5 /HPF RBC, ur 3-5(A) 0 - 2 /HPF [facility] (ESTER) Epithelial cells, squamous, ur 1-5 0 - 5 /HPF [facility] (ESTER) Mucous, ur Present(A) [facility] (ESTER) Culture Reflex Comment Reflex conditions for urine culture (WBC >10) not met. [facility] (ESTER) Urine 05/30/2024 2:30 PM STAFF TRAINING AND DEVELOPMENT MANAGER 05/30/2024 2:32 PM STAFF TRAINING AND DEVELOPMENT MANAGER us Jeannine Montejo MD LAB URINE ORDERABLES Marcelina l Result Performing Organization Address [facility] Co de Phone Number [facility] (ESTER) 1 [facility] [place] [address] * eGFR (05/30/2024 10:42 AM STAFF TRAINING AND DEVELOPMENT MANAGER) eGFR >90 >=60 mL/min/1. 73 m2 Comment: Interpretive Data Reference Interval Normal >/= 90 mL/min/1.73m2 Mildly decreased* 60 - 89 mL/min/1.73m2 Mildly to moderately decreased 45 - 59 mL/min/1.73m2 Moderately to severely decreased 30 - 44 mL/min/1.73m2 Severely decreased 15 - 29 mL/min/1.73m2 Kidney Failure < 15 mL/min/1.73m2 *Relative to young adult level Estimated glomerular filtration rate is determined by the 2020 CKD-EPI equation recommended by the National Kidney Foundation (A Unifying Approach to GFR Estimation: Recommendations of the NKF-ASK Task Force on Reassessing the Inclusion of Race in Diagnosing Kidney Disease, JASN 2020). The CKD-EPI equation should not be used for patients with unstable renal function and has not been validated in children and those over 70. Current interpretive data was last reviewed 2021. Testing performed by: [facility], [address] [place] [address]., [id number] Blood 05/30/2024 10:4 2 AM STAFF TRAINING AND DEVELOPMENT MANAGER 05/30/2024 12:18 PM STAFF TRAINING AND DEVELOPMENT MANAGER Barry Infante MD LAB BLOOD ORDERABLES Final Result [facility] (ESTER) 1 [facility] Department [place] [address] * (ABNORMAL) Differential, auto (05/30/2024 10:42 AM STAFF TRAINING AND DEVELOPMENT MANAGER) Neutrophil abs 10.5(H) 1.5 - 6.5 K/cumm Comment:Testing performed by : [facility], [address] [place] [address]., [id number] Imm gran abs 0.0 0.0 - 0.1 K/cumm [facility] (ESTER) Comment:Testing performed by : [address] [address] Lymphocyte abs 0.6(L) 0.8 - 3.3 K/cumm [facility] (ESTER) Comment:Testing performed by : [address] [address] Monocyte abs 0.6 0.2 - 0.8 K/cumm [facility] (ESTER) Comment:Testing performed by : [address] [address] Eosinophil abs 0.0 0.0 - 0.5 K/cumm [facility] (ESTER) Comment:Testing performed by : [address] [address] Basophil abs 0.1 0.0 - 0.1 K/cumm [facility] (ESTER) Comment:Testing performed by : [facility], [address] [place] [address]., [address] Neutrophil pct 88.6 % [facility] (EST[facility]) Comment: Interpretive Data Percent cell count reference ranges are not reported, since discordance with absolute values may lead to misinterpretation of CBC data. Current Interpretive Data was last revised on 2017. Testing performed by: [facility], [address] [place] [address]., [address] Imm gran pct 0.3 % [facility] (ESTER) Comment: Interpretive Data Percent cell count reference ranges are not reported, since discordance with absolute values may lead to misinterpretation of CBC data. Current Interpretive Data was last revised on 2017. Testing performed by: [address] [address] Lymphocyte pct 5.4 % [facility] ([facility]) Comment: Interpretive Data Percent cell count reference ranges are not reported, since discordance with absolute values may lead to misinterpretation of CBC data. Current Interpretive Data was last revised on 2017. Testing performed by: [facility], [address] [place] [address]., [address] Monocyte pct 5.0 % [facility] (ESTER) Comment: Interpretive Data Percent cell count reference ranges are not reported, since discordance with absolute values may lead to misinterpretation of CBC data. Current Interpretive Data was last revised on 2017. Testing performed by: [address] [address] Eosinophil pct 0.3 % [facility] ([facility]) Comment: Interpretive Data Percent cell count reference ranges are not reported, since discordance with absolute values may lead to misinterpretation of CBC data. Current Interpretive Data was last revised on 2017. Testing performed by: [address] [address] Basophil pct 0.4 % [facility] (ESTER) Comment: Interpretive Data Percent cell count reference ranges are not reported, since discordance with absolute values may lead to misinterpretation of CBC data. Current Interpretive Data was last revised on 2017. Testing performed by: [address] [address] Blood 05/30/2024 10:4 2 AM STAFF TRAINING AND DEVELOPMENT MANAGER 05/30/2024 10:45 AM STAFF TRAINING AND DEVELOPMENT MANAGER Barry Infante MD LAB BLOOD ORDERABLES Final Result [facility] ([facility]) 1 [facility] Department [place] [address] * (ABNORMAL) CBC with auto differential (05/30/2024 10:42 AM STAFF TRAINING AND DEVELOPMENT MANAGER) WBC 11.9(H) 3.8 - 9.9 K/cumm Comment:Testing performed by : [address], [address] Hgb 14.8 11.9 - 15.5 g/dL [facility] (ESTER) Comment:Testing performed by : [address], [address] Hct 46.4(H) 35.6 - 45.5 % [facility] (ESTER) Comment:Testing performed by : [address], [address] Plt 311 150 - 400 K/cumm [facility] (EST[facility]) Comment:Testing performed by : [address], [address] MPV 11.3 9.1 - 12.3 fL [facility] (EST[facility]) Comment:Testing performed by : [address], [address] RBC 5.09 3.90 - 5.20 M/cumm [facility] (ESTER) Comment:Testing performed by : [address], [address] MCV 91.2 81.3 - 96.4 fL [facility] ([facility]) Comment:Testing performed by : [address], [address] MCH 29.1 27.1 - 33.3 pg [facility] ([facility]) Comment:Testing performed by : [address], [address] MCHC 31.9(L) 32.3 - 35.7 g/dL [facility] (EST[facility]) Comment:Testing performed by : [facility], [address] [place] [address], [address] RDW CV 14.1 11.1 - 14.9 % [facility] (ESTER) Comment:Testing performed by : [facility], [address] [place] [address], [address] RDW SD 47.5 35.7 - 48.1 fL [facility] (ESTER) Comment:Testing performed by : [facility], [address] [place] [address], [address] NRBC abs 0.00 0.00 - 0.01 K/cumm [facility] (ESTER) Comment:Testing performed by : [facility], [address] [place] [address], [address] Blood Venous blood specimen / Unknown 05/30/2024 10:42 AM STAFF TRAINING AND DEVELOPMENT MANAGER 05/30/2024 10:45 AM STAFF TRAINING AND DEVELOPMENT MANAGER Barry Infante MD LAB BLOOD ORDERABLES Final Result [facility] (ESTER) 1 [facility] [place] [address] * Lipase (05/30/2024 10:42 AM STAFF TRAINING AND DEVELOPMENT MANAGER) Lipase 12 10 - 99 Units/L Comment:Testing performed by : [facility], [address] [place] [address], [id number] Blood Venous blood specimen / Unknown 05/30/2024 10:42 AM STAFF TRAINING AND DEVELOPMENT MANAGER 05/30/2024 10:45 AM STAFF TRAINING AND DEVELOPMENT MANAGER Barry Infante MD LAB BLOOD ORDERABLES Final Result [facility] (ESTER) 1 [facility] [place] [address] * (ABNORMAL) Comprehensive metabolic panel (05/30/2024 10:42 AM STAFF TRAINING AND DEVELOPMENT MANAGER) Sodium 140 135 - 145 mmol/L Comment:Testing performed by : [facility], [address], [place]., [address] Potassium, pl 4.0 3.3 - 4.9 mmol/L [facility] ([facility]) Comment:Testing performed by : [facility], [address] [place] [address]., [address] Chloride 98 97 - 110 mmol/L [facility] (EST[facility]) Comment:Testing performed by : [address], [address] CO2 27 22 - 32 mmol/L [facility] ([facility]) Comment:Testing performed by : [address], [address] Anion gap 15 2 - 15 mmol/L [facility] ([facility]) Comment:Testing performed by : [address], [address] BUN 20 6 - 25 mg/dL [facility] (EST[facility]) Comment:Testing performed by : [address], [address] Creatinine 0.67 0.60 - 1.10 mg/dL [facility] (ESTER) Comment:Testing performed by : [address], [address] Glucose 164 70 - 199 mg/dL [facility] (ESTER) Comment: Interpretive Data Fasting glucose >/= 126 mg/dl is diagnostic for diabetes. Fasting is defined as no caloric intake for at least 8 hours. Fasting glucose between 100 mg/dl to 125 mg/dl is diagnostic of prediabetes. In a patient with classic symptoms of hyperglycemia or hyperglycemic crisis, a random glucose >/= 200 mg/dl is diagnostic for diabetes. In the absence of unequivocal hyperglycemia, results should be confirmed by repeat testing. The classification and Diagnosis of Diabetes Diabetes Care 202; 46: S19-S40. Current interpretive data was last revised 2022. Testing performed by: [address] [address] Calcium 10.0 8.5 - 10.3 mg/dL [facility] ([facility]) Comment:Testing performed by : [address], [address] Bilirubin, total 1.0 0.1 - 1.2 mg/dL [facility] (EST[facility]) Comment:Testing performed by : [address] [address] Protein, pl 7.7 6.5 - 8.5 g/dL [facility] (EST[facility]) Comment:Testing performed by : [facility], [address] [place] [address]., [address] Albumin 4.4 3.5 - 5.0 g/dL [facility] (EST[facility]) Comment:Testing performed by : [facility], [address] [place] [address], [address] Alk phos 84 40 - 130 Units/L [facility] (ESTER) Comment:Testing performed by : [facility], [address] [place] [address], [address] ALT 38 7 - 45 Units/L [facility] (ESTER) Comment:Testing performed by : [facility], [address] [place] [address], [address] AST 54(H) 10 - 45 Units/L [facility] (ESTER) Comment:Testing performed by : [facility], [address] [place] [address], [address] Blood 05/30/2024 10:4 2 AM STAFF TRAINING AND DEVELOPMENT MANAGER 05/30/2024 10:45 AM STAFF TRAINING AND DEVELOPMENT MANAGER us Barry Infante MD LAB BLOOD ORDERABLES Final Result [facility] (ESTER) 1 [facility] Department [place] [address] * Screening Mammogram Bilateral W Tray (12/06/2023 2:57 PM CDT) Anatomical Region Laterality Modality Breast Bilateral Mammography Narrative 12/07/2023 10:56 AM CDT Mammogram Technique: Bilateral Digital Breast Tomosynthesis, Bilateral C-view 2D Screening mammogram. Views obtained: bilateral craniocaudal and bilateral mediolateral oblique. Computer Aided Detection was performed. Mammogram Findings: The present examination has been compared to prior imaging studies performed at [facility] on 04/30/2019, at [facility] on 07/23/2020, and at [facility] on 10/19/2022. There are scattered areas of fibroglandular density. There are multiple masses in both breasts. Finding remains unchanged from the prior study. There is no suspicious abnormality in either breast. Impression: There is no mammographic evidence of malignancy. Annual screening mammography is recommended. OVERALL FINAL ASSESSMENT: BI-RADS CATEGORY 2: Benign. Procedure Note Cristel Craft MD - 12/07/2023 Mammogram Technique: Bilateral Digital Breast Tomosynthesis, Bilateral C-view 2D Screening mammogram. Views obtained: bilateral craniocaudal and bilateral mediolateral oblique. Computer Aided Detection was performed. Mammogram Findings: The present examination has been compared to prior imaging studies performed at [facility] on 04/30/2019, at [facility] at [facility] on 07/23/2020, and at [facility] on 10/19/2022. There are scattered areas of fibroglandular density. There are multiple masses in both breasts. Finding remains unchangedfrom the prior study. There is no suspicious abnormality in either breast. Impression: There is no mammographic evidence of malignancy. Annual screening mammography is recommended. OVERALL FINAL ASSESSMENT: BI-RADS CATEGORY 2: Benign. us Self Screening Mammogram IMG MAMMO PROCEDURES Fi nal Result * COLONOSCOPY (09/22/2022 10:02 AM CDT) Anatomical Region Laterality Modality Other Narrative Procedure Note Rich Hooker MD - 09/22/2022 10:02 AM CDT [facility] Patient Name: Linsey Arnold Procedure Date: 09/22/2022 10:02 AM Date of : 1960 Admit Type: Outpatient Age: 62 Gender: Female Attending MD: Rich Hooker M.D. Room: [facility] ENDOSCOPY ROOM 02 Note Status: Finalized Procedure: Colonoscopy Indications: Last colonoscopy: 2019, Personal history ofmalignant rectal neoplasm Referring MD: Providers: Rich Hooker M.D. Medicines: Propofol per Anesthesia Complications: No immediate complications. Estimated blood loss:None. Estimated Blood Loss: Estimated blood loss: none. Procedure: Pre-Anesthesia Assessment: - Immediately prior to administration ofmedications, the patient was re-assessed for adequacy to receive sedatives. - Sedation was administered by an anesthesia professional. General anesthesia was attained. - The heart rate, respiratory rate, oxygen saturations, blood pressure, adequacy of pulmonary ventilation, and response to care were monitored throughout the procedure. - The physical status of the patient wasre-assessed after the procedure. The benefits, risks and alternatives of theprocedure and sedation were discussed and informed consentwas obtained. All questions were answered. Please referto the signed informed consent document in the medical record. The scope was passed under direct vision.The [id number] was introduced through the anusand advanced to the the cecum, identified byappendiceal orifice and ileocecal valve. The colonoscopy was performed with ease. The patient tolerated the procedure well. The quality of the bowelpreparation was excellent. The quality of the bowel preparation was evaluated using the BBPS ([place] BowelPreparation Scale) with scores of: Right Colon = 3, Transverse Colon = 3 and Left Colon = NA. The total BBPS score equals 6* (*this score is the summation of 2 orfewer segments). The bowel preparation used was SUPREPvia split dose instruction. Findings: The entire examined colon appeared normal. Impression: - The entire examined colon is normal. - No specimens collected. Recommendation: - Repeat colonoscopy in 5 years for surveillance. Electronically signed by Dr.Matthew Nhung M.D. Rich Hooker M.D. 09/22/2022 10:32:02 AM . Number of Addenda: 0 Note Initiated On: 09/22/2022 10:02 AM Recognized by the [place] [employer] for promoting quality in endoscopy Rich Hooker MD ENDOSCOPY PROCEDURES Final R esult * Hepatitis C antibody (07/02/2020 10:36 AM CDT) Hep C Ab Nonreactive Nonreactive [facility] Comment: Interpretive Data Nonreactive: Antibodies to HCV not detected. Does NOT exclude the possibility of recent exposure to HCV. Equivocal: Equivocal for HCV antibodies. Supplemental molecular testing will be automatically performed to determine infection status in accordance with current CDC screening recommendations. Reactive: Positive for HCV antibodies. This may represent current or past HCV infection. Supplemental molecular testing will be automatically performed to determine current infection status in accordance with current CDC screening recommendations. Interpretive data was last revised on 2019. Testing performed by: [facility], [facility] [facility], [place]., [address] Blood specimen (specimen) 07/02/2020 10:36 AM CDT 07/02/2020 8:25 PM CDT us Melissa Cohen NP LAB MICROBIOLOGY - GENERAL ORDERABLES Final Result [facility] [id number] [facility]. [place] [address] from Last 3 Months or Most Recently Relevant to Health Maintenance Insurance [employer] CHOICE MEDICARE PPO COMMERCIAL GENERIC [employer] CHOICE MEDICARE PPO Advance Directives For more information, please contact: [phone] * Full Code (Latest Code Status on File) Date Activated Date Inactivated Comments 08/01/2024 1:44 PM 08/02/2024 6:30 PM * Full Code Date Activated Date Inactivated Comments 07/20/2024 1:25 AM 07/22/2024 10:20 PM * Full Code Date Activated Date Inactivated Comments 05/31/2024 1:53 PM 06/01/2024 10:02 PM * Full Code Date Activated Date Inactivated Comments 09/22/2022 9:10 AM 09/22/2022 3:29 PM * Full Code Date Activated Date Inactivated Comments 07/15/2022 2:17 AM 07/15/2022 6:50 AM Care Teams Analytical Technician Relationship Specialty Start Date End Date Lucien Pelletier MD PCP - General 09/01/16 Fredy Guaman MD [address] [place] [address] Referring Physician Neuromuscular Medicine 12/26/17 Doug Bains MD [address] [facility] [address] [place] [address] Consulting Physician General Surgery 08/02/24
--- OUTSIDE RECORDS SUMMARY | 2024-08-08 15:31 | XMS_ITS ---
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 Assessment & Plan (06/12/2024 11:17 AM CRUISE STAFF MEMBER): Refer for Cardiology consult. Hernia of abdominal wall 06/12/2024 Assessment & Plan (06/12/2024 11:19 AM CRUISE STAFF MEMBER): After Cardiology consult we will consider referral to General surgery. Partial small bowel obstruction 05/31/2024 Assessment & Plan (06/12/2024 11:18 AM CRUISE STAFF MEMBER): IAileen, TRADE SHOW SPECIALIST have personally reviewed pertinent inpatient and/or ED records, including discharge medications and [employer] if applicable. This patient's discharge medication list has been reviewed and reconciled with her outpatient medication list and has also been reviewed with patient and/or caregiver. I have noted any changes. Resolved. Bilateral primary osteoarthritis of knee 025 Assessment & Plan (05/20/2024 4:34 PM CRUISE STAFF MEMBER): Referral to physical therapy IFG (impaired fasting glucose) 02/09/2023 Assessment & Plan (05/20/2024 4:20 PM CRUISE STAFF MEMBER): Lab Results Component Value Date HGBA1C 6.2 [...] consult. Assessment & Plan (06/12/2024 11:18 AM CRUISE STAFF MEMBER): Refer for Cardiology consult. Assessment & Plan (05/20/2024 4:21 PM CRUISE STAFF MEMBER): Exertional dyspnea without angina. Cannot exclude cardiac [...] last pap 2017, due 2020- referred to [facility] today; annual mammogram and monthly self breast [...] 11/10/2017 Assessment & Plan (05/20/2024 4:20 PM CRUISE STAFF MEMBER): S/p XRT, LAR with ken dissection followed [...] 05/12 Assessment & Plan (06/12/2024 10:51 AM CRUISE STAFF MEMBER): BMI Follow-up includes: nutrition counseling, exercise counseling, and education provided. Assessment & Plan (05/20/2024 3:52 PM CRUISE STAFF MEMBER): BMI Follow-up includes: nutrition counseling, exercise counseling, and education provided. Assessment & Plan (10/18/2023 9:34 AM CDT): BMI Follow-up includes: nutrition counseling, exercise counseling, and education provided. Assessment & Plan (02/09/2023 12:40 PM CDT): BMI Follow-up includes: nutrition counseling, exercise counseling, and education provided. Assessment & Plan (04/16/2019 3:11 PM CRUISE STAFF MEMBER): BMI Follow-up includes: nutrition counseling, exercise counseling and education provided. Assessment & Plan (02/15/2018 10:35 AM CRUISE STAFF MEMBER): BMI Follow-up includes: nutrition counseling, exercise counseling and education provided. Assessment & Plan (06/06/2017 11:07 AM CRUISE STAFF MEMBER): BMI Follow-up includes: nutrition counseling, exercise counseling and education provided. Nephrolithiasis 06/06/2017 Assessment & Plan (06/12/2024 11:18 AM CRUISE STAFF MEMBER): Refer for urology consult. Assessment & Plan (05/20/2024 4:20 PM CRUISE STAFF MEMBER): No intercurrent events She is compliant with urocit-K Assessment & Plan (04/16/2019 3:35 PM CRUISE STAFF MEMBER): No intercurrent events She is compliant with urocit-K Assessment & Plan (02/15/2018 11:01 AM CRUISE STAFF MEMBER): Controlled with urinary alkalization Assessment & Plan (06/06/2017 11:19 AM CRUISE STAFF MEMBER): Uric acid and calcium oxalate S/p sheath [...] GI. Assessment & Plan (04/16/2019 3:36 PM CRUISE STAFF MEMBER): sxs remain well controlled with famotidine and dietary discretion Assessment & Plan (06/06/2017 11:22 AM CRUISE STAFF MEMBER): Good response to H2B Reviewed dietary avoidance. 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 Assessment & Plan (06/06/2017 11:16 AM CRUISE STAFF MEMBER): Laboratory w/u from last visit WNL Chemo-induced Reviewed behavioral compensatory techniques Assessment & Plan (04/06/2017 2:51 PM CRUISE STAFF MEMBER): Start workup with memory labs. Essential (primary) hypertension 06/29/2016 Overview (09/02/2016): Essential hypertension Assessment & Plan (02/15/2018 10:56 AM CRUISE STAFF MEMBER): Hypertension is stable on lisinopril/HCTZ. Continue current treatment regimen. Dietary sodium restriction. Continue current medications. Blood pressure will be reassessed at the next regular appointment. Assessment & Plan (06/06/2017 11:19 AM CRUISE STAFF MEMBER): Hypertension is stable. Continue current treatment regimen. [...] 11/05/2015 Assessment & Plan (05/20/2024 4:26 PM CRUISE STAFF MEMBER): Chemotherapy induced neuropathy When Linsey saw [place] [...] medication. Assessment & Plan (04/16/2019 3:43 PM CRUISE STAFF MEMBER): She understands that these sxs will not [...] Hypertension Assessment & Plan (05/20/2024 4:14 PM CRUISE STAFF MEMBER): Linsey is normotensive on lisinopril HCTZ Continue [...] - improved with diet and weight loss Current Treatment and Therapy Plans No current plan information found. Past Treatment and Therapy Plans No past plan information found. Lifetime Dose Tracking * Chemical Lifetime Dose Automatic Entry Manual Entr y Air kerma at the reference point (Ka,r) 260 mGy 0 mGy 260 mGy DLP 466 mGycm 466 mGycm 0 mGycm Resolved Problems Problem Noted Date Diagnosed Date Resolved Date Need for influenza vaccination 04/16/2019 06/30/2022 Hypercalciuria 09/20/2018 06/30/2022 Assessment & Plan (04/16/2019 3:37 PM CRUISE STAFF MEMBER): HCTZ History of rectal cancer 02/06/2018 Intractable neuropathic pain of lower extremity 12/08/2017 07/02/2020 Burning pain 09/07/2017 07/02/2020 Joint pain, hip 09/07/2017 07/02/2020 Left hip pain 09/07/2017 07/02/2020 Muscle pain 09/07/2017 07/02/2020 Numbness and tingling 09/07/20172022 Pain of right thigh 09/07/2017 07/01/19 23 Pure hypercholesterolemia 08/31/2016 Overview (09/02/2016): Pure hypercholesterolemia Assessment & Plan (07/02/2020 9:41 AM CDT): Start crestor daily Dehydration 07/27/2016 07/02/2020 Dermatophytosis of nail 11/05/201506/09 Ankle pain 10/08/2015 07/02/2020 Assessment & Plan (02/15/2018 10:55 AM CRUISE STAFF MEMBER): There is chronic ankle pain with assoc'ed [...] provided. Assessment & Plan (04/06/2017 2:04 PM CRUISE STAFF MEMBER): BMI Follow-up includes: nutrition counseling, exercise counseling and education provided. Malignant neoplasm of colon 06/11/2014 07/02/2020 Overview (07/15/2016): Colon cancer Assessment & Plan (04/16/2019 3:49 PM CRUISE STAFF MEMBER): S/p XRT, LAR with ekn dissection followed by chemotherapy in 2012 c/b neuropathy CEA trend favorable. No e/o residual or recurrent disease Ileostomy pulled down in 04/23 -->cont CEAs and q3y C/S Assessment & Plan (09/25/2018 3:43 PM CDT): S/p XRT, followed by LAR and adjuvant chemotherapy completed in 2012, c/b neuropathy. CEA trend favorable No e/o residual/recurrent disease ->q5y colonoscopies Assessment & Plan (02/15/2018 11:05 AM CRUISE STAFF MEMBER): S/p hemicolectomy and chemo Ostomy pulldown in 2013 No e/o active disease. CEA from 07/26 < .1 Cont annual CEAs and q5h colonoscopy Assessment & Plan (06/06/2017 11:20 AM CRUISE STAFF MEMBER): Addressed 5 years ago. No e/o active disease. 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 Neuropathy 06/11/2014 07/02/2020 Overview (04/24/2018): Neuropathy Assessment & Plan (02/15/2018 10:54 AM CRUISE STAFF MEMBER): Since last seen, lyrica has been added to cymbalta and she has noticed some degree of improvement in dysesthesias, but disequilibrium and impaired sensation persist. Assessment & Plan (06/06/2017 11:21 AM CRUISE STAFF MEMBER): Chemo-induced Cont duloxetine and gabapentin(has titrated to qid dosing of 300mg) Add alpha lipoic acid for synergy Consider increasing gabapentin based on response metanx is a consideration as well. Hyperlipidemia 06/11/2014 07/02/2020 Overview (07/15/2016): HLD - Hyperlipidemia Lung mass 03/04/2014 07/02/2020 Benign essential hypertension 12/23/2013 07/02/2020 Overview (07/15/2016): Benign essential hypertension Assessment & Plan (04/16/2019 3:47 PM CRUISE STAFF MEMBER): At goal on lisinopril and HCTZ Cont [...]
--- OUTSIDE RECORDS SUMMARY | 2024-08-08 15:32 | XMS_ITS | Encounter Summary ---
Author Organization [facility] Healthcare Address [address] [place] [address] Care Team Providers Care Harness Maker Name Role Phone Jeremy Flores MD Primary Care Provi susan Fredy Guaman MD Unavailable [phone] Doug Bains MD Unavailable [phone] Encounter Details Date Type Department Care Team (Late st Contact Info) Description 06/18/2024 Telephone [facility] [address] [facility] [address] [place] [address] Darshan Lopez MD [address] [facility] [address] [place] [address] Social History Tobacco Use Types Packs/Day Years Used Date Smoking Tobacco: Never Passive Smoke Exposure: Never Smokeless Tobacco: Never Alcohol Use Standard Drinks/Week Comments No 0 (1 standard drink = 0.6 oz pur e alcohol) AUDIT-C Answer Date Recorded Q1: How often do you have a drink containing alc ohol? Never 09/22/2022 Average Number of Drinks Not on file 023 Frequency of Binge Drinking Not on file 09/08 PHQ-2 Answer Date Recorded PHQ-2 Total Score (If total score is 3 or more points, staff should administer the PHQ-9) 0 05/20/2024 Personal Safety Answer Date Recorded Have you ever been in or are you currently in a harmful physical or emotional relationship or is someone making you feel afraid or unsafe? 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 Gender Identity Not on file Sexual Orientation Straight 09/24/2018 10 :04 PM CDT documented as of this encounter Plan of Treatment Upcoming Encounters Date Type Department Care Team (Latest Contact Info) Description 08/15/2024 8:30 AM CDT Hospital Encounter [facility] Operating Room [address] [place] [address] [place] [address] [place] [address] 08/15/2024 8:30 AM CDT - 08/15/2024 9:30 AM CDT Surgery [facility] Operating Room [address] [place] [address] [place] [address] [place] [address] Right ureteroscopy laser lithotripsy with stent placement Scheduled Procedures Name Priority Associated Diagnoses Date/Ti me URETEROSCOPY Calculus of kidney 08/15/2024 8:30 AM CDT documented as of this encounter Goals Goal Patient Goal Type Associated Problems Recent Progress Patient-Stated? Author CCM Chronic Pain Care Plan Chronic Care Management No Yovany Bautista, RN Note: Problem: Chronic Pain Goals: 1. Minimize further functional decline 2. Maximize quality of life 3. Control pain Strategies: - Activity/exercise program recommendation - Conservative stepwise pain medicine strategy with multi-disciplinary approach - Recommend healthy lifestyle strategies and compensatory methods as needed documented as of this encounter Visit Diagnoses Not on filedocumented in this encounter Care Teams Harness Maker Relationship Specialty Start Date End Date Jeremy Flores MD PCP - General 09/01/16 Fredy uGaman MD [address] [place] [address] Referring Physician Neuromuscular Medicine 12/26/17 Doug Bains MD [address] [facility] [address] [place] [address] Consulting Physician General Surgery 08/02/24 documented as of this encounter
--- OUTSIDE RECORDS SUMMARY | 2024-08-08 15:32 | XMS_ITS | Clinical Summary ---
Author Organization [facility] al Address [address] [place] [address] Care Team Providers Care Paper Bags Sewing Machine Operator Name Role Phone Lucien Pelletier MD Primary Care Provi susan Fredy Guaman MD Unavailable [phone] Doug Bains MD Unavailable [phone] Allergies Active Allergy Reactions Criticality Noted Date [...] 1 tablet (20 mg total) by mouth vitreo retinal surgeon before breakfast Active aspirin 81 mg enteric [...] 06/19/19 25 2024 Discontinued(E rror) losartan (COZAAR) 50 mg tablet Take 1 tablet (50 mg total) by mouth daily 30 tablet 06/21/19 25 2024 Discontinued metoprolol XL (TOPROL-XL) 25 mg extended release tablet Take 1 tablet (25 mg total) by mouth daily 30 tablet 06/19/19 25 2024 Discontinued(E rror) losartan (COZAAR) 100 mg tablet Take 1 tablet (100 mg total) by mouth daily 90 tablet 3 07/11/19 25 2024 Discontinued(E rror) spironolactone (ALDACTONE) 25 mg tablet Take 1 tablet (25 mg total) by mouth daily 30 tablet 07/20/19 25 2024 Discontinued(E rror) empagliflozin (JARDIANCE) 10 [...] hernia 07/25/2024 Coronary artery disease invo lving [place] heart with unstable angina pectoris 07/20/2024 Abnormal [...] medications. Assessment & Plan (06/12/2024 11:17 AM LOCAL COMPANY REFRIGERATED TRUCK DRIVER): Refer for Cardiology consult. Hernia of abdominal wall 06/12/2024 Assessment & Plan (06/12/2024 11:19 AM LOCAL COMPANY REFRIGERATED TRUCK DRIVER): After Cardiology consult we will consider referral to General surgery. Partial small bowel obstruction 05/31/2024 Assessment & Plan (06/12/2024 11:18 AM LOCAL COMPANY REFRIGERATED TRUCK DRIVER): I, Aileen Savage CHEMICAL OPERATIONS SPECIALIST have personally reviewed pertinent inpatient and/or ED records, including discharge medications and Clindesk if applicable. This patient's discharge medication list has been reviewed and reconciled with her outpatient medication list and has also been reviewed with patient and/or caregiver. I have noted any changes. Resolved. Bilateral primary osteoarthritis of knee 025 Assessment & Plan (05/20/2024 4:34 PM LOCAL COMPANY REFRIGERATED TRUCK DRIVER): Referral to physical therapy IFG (impaired fasting glucose) 02/09/2023 Assessment & Plan (05/20/2024 4:20 PM LOCAL COMPANY REFRIGERATED TRUCK DRIVER): Lab Results Component Value Date HGBA1C 6.2 [...] consult. Assessment & Plan (06/12/2024 11:18 AM LOCAL COMPANY REFRIGERATED TRUCK DRIVER): Refer for Cardiology consult. Assessment & Plan (05/20/2024 4:21 PM LOCAL COMPANY REFRIGERATED TRUCK DRIVER): Exertional dyspnea without angina. Cannot exclude cardiac [...] injection Encounter for preventative adult health care exa mination 09/25/2018 Assessment & Plan (10/18/2023 10:04 AM [...] last pap 2017, due 2020- referred to DELIVERY ASSOCIATE today; annual mammogram and monthly self breast [...] 11/10/2017 Assessment & Plan (05/20/2024 4:20 PM LOCAL COMPANY REFRIGERATED TRUCK DRIVER): S/p XRT, LAR with ken dissection followed [...] 05/12 Assessment & Plan (06/12/2024 10:51 AM LOCAL COMPANY REFRIGERATED TRUCK DRIVER): BMI Follow-up includes: nutrition counseling, exercise counseling, and education provided. Assessment & Plan (05/20/2024 3:52 PM LOCAL COMPANY REFRIGERATED TRUCK DRIVER): BMI Follow-up includes: nutrition counseling, exercise counseling, and education provided. Assessment & Plan (10/18/2023 9:34 AM CDT): BMI Follow-up includes: nutrition counseling, exercise counseling, and education provided. Assessment & Plan (02/09/2023 12:40 PM CDT): BMI Follow-up includes: nutrition counseling, exercise counseling, and education provided. Assessment & Plan (04/16/2019 3:11 PM LOCAL COMPANY REFRIGERATED TRUCK DRIVER): BMI Follow-up includes: nutrition counseling, exercise counseling and education provided. Assessment & Plan (02/15/2018 10:35 AM LOCAL COMPANY REFRIGERATED TRUCK DRIVER): BMI Follow-up includes: nutrition counseling, exercise counseling and education provided. Assessment & Plan (06/06/2017 11:07 AM LOCAL COMPANY REFRIGERATED TRUCK DRIVER): BMI Follow-up includes: nutrition counseling, exercise counseling and education provided. Nephrolithiasis 06/06/2017 Assessment & Plan (06/12/2024 11:18 AM LOCAL COMPANY REFRIGERATED TRUCK DRIVER): Refer for urology consult. Assessment & Plan (05/20/2024 4:20 PM LOCAL COMPANY REFRIGERATED TRUCK DRIVER): No intercurrent events She is compliant with urocit-K Assessment & Plan (04/16/2019 3:35 PM LOCAL COMPANY REFRIGERATED TRUCK DRIVER): No intercurrent events She is compliant with urocit-K Assessment & Plan (02/15/2018 11:01 AM LOCAL COMPANY REFRIGERATED TRUCK DRIVER): Controlled with urinary alkalization Assessment & Plan (06/06/2017 11:19 AM LOCAL COMPANY REFRIGERATED TRUCK DRIVER): Uric acid and calcium oxalate S/p sheath [...] GI. Assessment & Plan (04/16/2019 3:36 PM LOCAL COMPANY REFRIGERATED TRUCK DRIVER): sxs remain well controlled with famotidine and dietary discretion Assessment & Plan (06/06/2017 11:22 AM LOCAL COMPANY REFRIGERATED TRUCK DRIVER): Good response to H2B Reviewed dietary avoidance. 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 Assessment & Plan (06/06/2017 11:16 AM LOCAL COMPANY REFRIGERATED TRUCK DRIVER): Laboratory w/u from last visit WNL Chemo-induced Reviewed behavioral compensatory techniques Assessment & Plan (04/06/2017 2:51 PM LOCAL COMPANY REFRIGERATED TRUCK DRIVER): Start workup with memory labs. Essential (primary) hypertension 06/29/2016 Overview (09/02/2016): Essential hypertension Assessment & Plan (02/15/2018 10:56 AM LOCAL COMPANY REFRIGERATED TRUCK DRIVER): Hypertension is stable on lisinopril/HCTZ. Continue current treatment regimen. Dietary sodium restriction. Continue current medications. Blood pressure will be reassessed at the next regular appointment. Assessment & Plan (06/06/2017 11:19 AM LOCAL COMPANY REFRIGERATED TRUCK DRIVER): Hypertension is stable. Continue current treatment regimen. [...] 11/05/2015 Assessment & Plan (05/20/2024 4:26 PM LOCAL COMPANY REFRIGERATED TRUCK DRIVER): Chemotherapy induced neuropathy When Linsey saw AUSTIN [...] medication. Assessment & Plan (04/16/2019 3:43 PM LOCAL COMPANY REFRIGERATED TRUCK DRIVER): She understands that these sxs will not [...] Hypertension Assessment & Plan (05/20/2024 4:14 PM LOCAL COMPANY REFRIGERATED TRUCK DRIVER): Linsey is normotensive on lisinopril HCTZ Continue [...] 06/30/2022 Assessment & Plan (04/16/2019 3:37 PM LOCAL COMPANY REFRIGERATED TRUCK DRIVER): HCTZ History of rectal cancer 02/06/2018 Intractable [...] 07/02/2020 Assessment & Plan (02/15/2018 10:55 AM LOCAL COMPANY REFRIGERATED TRUCK DRIVER): There is chronic ankle pain with assoc'ed [...] provided. Assessment & Plan (04/06/2017 2:04 PM LOCAL COMPANY REFRIGERATED TRUCK DRIVER): BMI Follow-up includes: nutrition counseling, exercise counseling and education provided. Malignant neoplasm of colon 06/11/2014 07/02/2020 Overview (07/15/2016): Colon cancer Assessment & Plan (04/16/2019 3:49 PM LOCAL COMPANY REFRIGERATED TRUCK DRIVER): S/p XRT, LAR with ken dissection followed [...] colonoscopies Assessment & Plan (02/15/2018 11:05 AM LOCAL COMPANY REFRIGERATED TRUCK DRIVER): S/p hemicolectomy and chemo Ostomy pulldown in 2013 No e/o active disease. CEA from 07/26 < .1 Cont annual CEAs and q5h colonoscopy Assessment & Plan (06/06/2017 11:20 AM LOCAL COMPANY REFRIGERATED TRUCK DRIVER): Addressed 5 years ago. No e/o active disease. 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 Neuropathy 06/11/2014 07/02/2020 Overview (04/24/2018): Neuropathy Assessment & Plan (02/15/2018 10:54 AM LOCAL COMPANY REFRIGERATED TRUCK DRIVER): Since last seen, lyrica has been added to cymbalta and she has noticed some degree of improvement in dysesthesias, but disequilibrium and impaired sensation persist. Assessment & Plan (06/06/2017 11:21 AM LOCAL COMPANY REFRIGERATED TRUCK DRIVER): Chemo-induced Cont duloxetine and gabapentin(has titrated to qid dosing of 300mg) Add alpha lipoic acid for synergy Consider increasing gabapentin based on response metanx is a consideration as well. Hyperlipidemia 06/11/2014 07/02/2020 Overview (07/15/2016): HLD - Hyperlipidemia Lung mass 03/04/2014 07/02/2020 Benign essential hypertension 12/23/2013 07/02/2020 Overview (07/15/2016): Benign essential hypertension Assessment & Plan (04/16/2019 3:47 PM LOCAL COMPANY REFRIGERATED TRUCK DRIVER): At goal on lisinopril and HCTZ Cont [...] Encounter for preventive health examination 06/26/2012 06/30/2022 Encounters Date Type Department Care Team Description 08/01/2024 11:30 AM CDT - 08/01/2024 1:10 PM CDT Surgery [facility] Operating Room [address] [place] [phone] Doug Bains MD Incisional Hernia Repair with Mesh 08/01/2024 10:58 AM CDT Anesthesia Event [facility] Operating [facility] [address] [place] [phone] Asad Beth MD Czajkowski, Lesly June, NP 08/01/2024 9:16 AM CDT - 08/02/2024 2:25 PM CDT Hospital Encounter [address] [phone] Doug Bains MD Irreducible incisional hernia (Primary Dx) Discharge Disposition: Discharge to home or self care 07/30/2024 8:45 AM CDT Pre-Admission Testing [facility] Pre Anesthesia Testing [address] [place] [phone] 07/25/2024 2:00 PM CDT Office Visit [facility] [address] [facility] [address] [place] [phone] Aileen Savage NP Dyspnea on exertion (Primary Dx); Abnormal cardiovascular stress test 07/23/2024 Telephone [facility] [address] [facility] [address] [place] [address] Lucien Pelletier MD TEREZA Questions 07/22/2024 2:50 PM CDT - 07/22/2024 4:40 PM CDT Surgery [facility] [address] [place] [phone] Lloyd Nix MD LEFT HEART CATHETERIZATION WITH CORONARY ANGIOGRAPHY AND WITH OR WITHOUT LEFT VENTRICULOGRAM [id number] 07/20/2024 Results Follow-Up [facility] [address] [facility] [address] [place] [phone] Ortiz Mckee MD PhD 07/19/2024 8:56 PM CDT - 07/22/2024 6:15 PM CDT Hospital Encounter [facility] [id number] [place] [phone] Jennifer Esquivel MD Li, MD Jhoan Bocanegra Juletta, MD Sripada, Sarada, MD Coronary artery disease involving [place] heart with unstable angina pectoris, unspecified vessel or lesion type (HCC) (Primary Dx) Discharge Disposition: Discharge to home or self care 07/19/2024 11:24 AM CDT - 07/19/2024 11:59 PM CDT Hospital Encounter [facility] [address] [place] [address] Other chest pain Discharge Disposition: Discharge to home or self care 07/19/2024 11:24 AM CDT - 07/19/2024 11:59 PM CDT Hospital Encounter [facility] [address] [place] [address] Other chest pain Discharge Disposition: Discharge to home or self care 07/19/2024 Results Follow-Up [facility] [address] [facility] [address] [place] [phone] Ortiz Mckee MD PhD 07/17/2024 Telephone [facility] [address] [place] [address] Floridalma Duffy RN 07/10/2024 11:15 AM CDT Office Visit [facility] [address] [facility] [address] [place] [phone] Doug Bains MD Hernia of abdominal wall 07/10/2024 Telephone [facility] [address] [facility] [address] [place] [address] Ortiz Mckee MD PhD blood pressure concerns 07/02/2024 Telephone [facility] [address] [facility] [address] [place] [address] Marian Can Chart Review ([facility] adherence) 06/24/2024 Telephone [facility] [address] [facility] [address] [place] [address] Lucien Pelletier MD Referral Request 06/24/2024 Telephone [facility] [address] [place] [address] [address] [place] [address] Lucien Pelletier MD Referral Request 06/19/2024 Telephone [facility] [address] [place] [address] Ortiz Mckee MD PhD 06/18/2024 1:00 PM CDT Office Visit [facility] [address] [place] [address] [address] [place] [address] Ortiz Mckee MD PhD Other chest pain (Primary Dx) 06/18/2024 Telephone [facility] [address] [facility] [address] [place] [address] Darshan Lopez MD 06/12/2024 11:00 AM LOCAL COMPANY REFRIGERATED TRUCK DRIVER Office Visit [facility] [address] [facility] [address] [place] [address] Aileen Savage NP Nephrolithiasis (Primary Dx); Morbid obesity with BMI of 40.0-44.9, adult (HCC); Dyspnea on exertion; Abnormal cardiovascular stress test; Partial small bowel obstruction (HCC); Hernia of abdominal wall 06/11/2024 Telephone [facility] [address] [facility] [address] [place] [address] Lucien Pelletier MD 06/07/2024 Telephone [facility] [address] [facility] [address] [place] [address] Lucien Pelletier MD 06/06/2024 Telephone [facility] [address] [facility] [address] [place] [address] Lucien Pelletier MD Test Results 06/06/2024 Telephone [facility] [address] [facility] [address] [place] [address] Lucien Pelletier MD Recommendation Request (Nephrology); kidney stones 06/06/2024 Telephone [facility] [address] [facility] [address] [place] [address] Lucien Pelletier MD Medical Records Request 06/05/2024 10:07 AM LOCAL COMPANY REFRIGERATED TRUCK DRIVER - 06/05/2024 11:59 PM LOCAL COMPANY REFRIGERATED TRUCK DRIVER Hospital Encounter [facility] [address] [place] [address] Dyspnea on exertion Discharge Disposition: Discharge to home or self care 06/05/2024 [facility] [address] [facility] [address] [place] [address] Lucien Pelletier MD Medical Question/Miscellaneous 06/03/2024 TEREZA IP Outreach [facility] Accountable Care Organization [address] [place] [address] Madelin Hernández MA 05/31/2024 12:21 PM LOCAL COMPANY REFRIGERATED TRUCK DRIVER - 06/01/2024 5:10 PM LOCAL COMPANY REFRIGERATED TRUCK DRIVER Hospital Encounter [facility] [phone] [facility] [place] [address] Alec Rivera Jr., MD Discharge Disposition: Discharge to home or self care 05/31/2024 10:58 AM LOCAL COMPANY REFRIGERATED TRUCK DRIVER - 05/31/2024 11:59 PM LOCAL COMPANY REFRIGERATED TRUCK DRIVER Hospital [facility]counter [facility], Room R Discharge Disposition: Discharge to home or self care 05/30/2024 2:23 PM LOCAL COMPANY REFRIGERATED TRUCK DRIVER - 05/31/2024 11:25 AM LOCAL COMPANY REFRIGERATED TRUCK DRIVER Emergency [facility] Emergency Department [address] [place] [address] Barry Infante MD Wala, Keegan Swenson MD Nausea and vomiting, unspecified vomiting type (Primary Dx); Bowel obstruction (HCC); Renal stone; Gallbladder stone without cholecystitis or obstruction Discharge Disposition: Discharge to a short term hospital for IP 05/30/2024 10:16 AM LOCAL COMPANY REFRIGERATED TRUCK DRIVER - 05/30/2024 11:59 PM LOCAL COMPANY REFRIGERATED TRUCK DRIVER Hospital Encounter [facility] Emergency, Room R Discharge Disposition: Discharge to home or self care 05/30/2024 Telephone [facility] [address] [place] [address] [address] [place] [address] Lucien Pelletier MD Symptom Based Call 05/20/2024 3:45 PM LOCAL COMPANY REFRIGERATED TRUCK DRIVER Office Visit [facility] [address] [place] [address] [address] [place] [address] Lucien Pelletier MD Primary hypertension (Primary Dx); Morbid obesity with BMI of 40.0-44.9, adult (HCC); Dyspnea on exertion; History of colon cancer; IFG (impaired fasting glucose); Nephrolithiasis; Neuropathy due to chemotherapeutic drug; Bilateral primary osteoarthritis of knee from Last 3 Months Immunizations Immunization Administration Dates Next Due Influenza, [...] Patient Refused),04/10/2007 ZOSTER Recombinant 05/20/2024(Deferred: Patient Refused),02/09/2023 Surgical History Surgery Date Site/Laterality Comments OTHER SURGICAL HISTORY Cancer, rectal: diverting loop iliostomy PORT PLACEMENT CHEST >5 YEARS 08/24/2012 N/A ILEOSTOMY CLOSURE 05/01/2013 LOW ANTERIOR BOWEL RESECTION 07/30/2012 Laparoscopic assisted low anterior resection with diverting loop ileostomy HERNIA REPAIR 2013 COLON SURGERY 2012 CARDIAC CATHETERIZATION 07/22/2024 N/A Procedure: LEFT HEART CATHETERIZATION WITH CORONARY ANGIOGRAPHY AND WITH OR WITHOUT LEFT VENTRICULOGRAM [id number]; Surgeon: Lloyd Nix MD; Location: [facility] CARDIAC ENTRY DRIVER OPERATOR; Service: Cardiovascular; Laterality: N/A; LITHOTRIPSY Right Medical History Medical History Date Comments Hypertension Hypertension Malignant neoplasm of rectum (HCC) Cancer, rectal; Comments: OAC 12/23/2013 - closure in 2013 Anemia Anemia; Comments : OAC 12/23/2013 - Sensory neuropathy Peripheral se nsory neuropathy; Comments: OAC 12/23/2013 - from chemo Cholelithiasis without obstruction Cholelithiasis w/o obstruction; Comments: OAC 12/23/2013 - improved with diet and weight loss Hypercholesterolemia High choles terol; Comments: [place] 06/11/2014 - Malignant neoplasm of sigmoid colon (HCC) Adenocarcinoma of sigmoid colon - (Added by TW Conv) Essential (primary) hypertension Hypertension, unspecified type - (Added by TW Conv) Effusion of right ankle Swelling of both ankles - (Added by TW Conv) Personal history of other sp ecified conditions History of memory loss - (Ad ded by TW Conv) Personal history of other sp ecified conditions History of ataxia - (Added b y TW Conv) Hiatal hernia Kidney stone Recurrent ventral hernia Shortness of breath on exertion GERD (gastroesophageal reflux disease) Family History Medical History Relation Name Comments Arthritis Father Fermín Arnold Clotting disorder Father Fermín Arnold Diabetes Father Fermín Arnold Hearing loss Father Fermín Arnold Heart disease Father Fermín Arnold Family histor y of cardiac disorder - (Added by TW Conv) Hypertension Father Fermín Arnold Kidney disease Father Fermín Arnold Memory loss Father Fermín Arnold Physical abuse Father Fermín Arnold Arthritis Mother Ramandeep Arnold Cancer Mother Ramandeep Arnold Cancer, unknow n; Cause of : Cancer, unknown/Family history of cancer - (Added by TW Conv) Lung cancer Mother Ramandeep Arnold Cancer, lung; Cause of : Cancer, lung Breast cancer Mother's Sister 1 Diabetes type II Mother's Sister 2 Stroke Other 1 Heart disease Other 2 Cancer Other 3 Colon cancer Paternal Grandmother Arthritis Sister 1 na Hypertension Sister 1 na Stroke Sister 1 na Stroke Sister 2 older Relation Name Status Comments Father Fermín Arnold Maternal Grandfather Maternal Grandmother Mother Ramandeep Arnold Mother's Sister 1 Mother's Sister 2 Other 1 Other 2 Other 3 Paternal Grandfather Paternal Grandmother Sister 1 na Sister 2 older Social History Tobacco Use Types Packs/Day Years Used Date Smoking Tobacco: Never Passive Smoke Exposure: Never Smokeless Tobacco: Never Tobacco Cessation:Counseling Given: Not Answered Alcohol Use Standard Drinks/Week Comments No 0 (1 standard drink = 0.6 oz pur e alcohol) [facility] Utilities Answer Date Recorded In the past 12 months has [employer] gas, oil, or water company threatened to shut off services in your [...] week 07/22/2024 How often do you attend chur or presybeterian services? 1 to 4 times per year 07/22/2024 Do you belong to any clubs o r organizations such as quaker groups, unions, fraternal or athletic groups, or [...] money to buy more. Never true 07/23/19 25 Within the past 12 months, t he [...] any time in the past 12 m [facility], were you homeless or living in a mcc (including now)? No 07/22/2024 Personal Safety Answer Date Recorded Have you ever been in or are you currently in a harmful physical or emotional relationship or is someone making you feel afraid or unsafe? Denies 08/01/2024 Comments No Sex and Gender Information Value Date Recorded Sex Assigned at Not on file Legal Sex Female 11:27 AM LOCAL COMPANY REFRIGERATED TRUCK DRIVER Gender Identity Not on file Sexual Orientation Straight 09/24/2018 10 :04 PM CDT Obstetrics History Last Filed Vital Signs Vital Sign Reading [...] Description 08/15/2024 8:30 AM CDT Hospital Encounter [facility] Operating Room [address] [place] [address] [place] [address] [place] [address] 08/15/2024 8:30 AM CDT - 08/15/2024 9:30 AM CDT Surgery [facility] Operating Room [address] [place] [address] [place] [address] [place] [address] Right ureteroscopy laser lithotripsy with stent placement Scheduled Procedures Name Priority Associated Diagnoses Date/Ti me URETEROSCOPY Calculus of kidney 08/15/2024 8:30 AM CDT Health Maintenance Due Date Last Done Comments Cervical Cancer Screening 1960 Osteoporosis Screening-Bone Density Scan 1960 Covid-19 Vaccine ( season) 2024 02/08/2024, 05/10/2021, 07/14/2020, Additional history exists Well Visit 65+ 10/17/2024 10/18/2023, 03/2 06/2022, 07/02/2020, Additional history exists Breast Cancer Screening-Mammogram 12/05/2024 12/06/2023, 10/19/2022, 07/23/2020, Additional history exists Zoster Vaccine (2 of 2) 05/20/2025 02/09/2023 Post poned from 04/06/2023 (Insurance / Financial) Depression Screening 07/25/2025 07/25/2024, 07/25/2024, 05/20/2024, Additional history exists Fall Risk Assessment 08/02/2025 08/02/2024, 05/20/2024, 07/02/2020, Additional history exists Colon Cancer Screening-Colonoscopy 09/23/2027 09/22/2022, 09/26/2019, 07/28/2016, Additional history exists DTaP/Tdap/Td Vaccine (3 - Td or Tdap) 04/10/2028 01/08/2014, 04/10/2007 Postponed from 01/09/2024 (Insurance / Financial) Hepatitis C Screening Completed 07/02/2020 Colon Cancer Screening-CT Colonography Discontinued 09/22/2022, 09/26/2019, 07/28/2016, Additional history exists Colon Cancer Screening-DNA Stool Discontinued 09/22/2022, 09/26/2019, 07/28/2016, Additional history exists Colon Cancer Screening-FIT Discontinued 09/22, 09/26/2019, 07/28/2016, Additional history exists Colon Cancer Screening-Sigmoidoscopy Discontinued 09/22/2022, 09/26/2019, 07/28/2016, Additional history exists Influenza Vaccine Completed 02/08/2024, , 01/08/2022, Additional history exists Pneumococcal vaccine 65+ Completed 02/08/2024 Hepatitis B Screening Discontinued Goals Goal Patient Goal Type Associated Problems [...] as needed Medical Devices Implanted Type Area Director Of Infection Control Device Identifier Shelf Expiration Date Model / Serial / Lot [employer]/C R [address] Sepra Sorbaflex 4.5in [place] Open Bioresorbable Self [id number] - [id number] Implanted:Qty: 1 on 08/01/2024 by Doug Bains MD at [facility] Mesh N/A: Abdomen [employer]/C R Bard 12/05/2025 [id number] / / [id number] Procedures Procedure Name Priority Date/Time Associated Diagnosis Comments NH AN PROCEDURE PLACEHOLDER Routine 08/01/2024 11:14 AM CDT NH AN ELECTIVE ENDOTRACHEAL AIRWAY Routine 08/01/2024 11:14 [...] DOPPLER/CF W CONTRAST Routine 06/05/2024 11:49 AM LOCAL COMPANY REFRIGERATED TRUCK DRIVER Dyspnea on exertion EGFR Routine 05/31/2024 2:29 PM LOCAL COMPANY REFRIGERATED TRUCK DRIVER PHOSPHORUS STAT 05/31/2024 2:29 PM LOCAL COMPANY REFRIGERATED TRUCK DRIVER MAGNESIUM STAT 05/31/2024 2:29 PM LOCAL COMPANY REFRIGERATED TRUCK DRIVER COMPREHENSIVE METABOLIC PANEL Routine 05/31/2024 2:29 PM LOCAL COMPANY REFRIGERATED TRUCK DRIVER CBC WITHOUT DIFFERENTIAL STAT 05/31/2024 2:29 PM LOCAL COMPANY REFRIGERATED TRUCK DRIVER XR ABDOMEN AP 1 VIEW ED Urgent/IP Urgent 05/31/2024 9:45 AM [employer] TROPONIN T HIGH-SENSITIVITY SERIES (BASELINE, 2HR, 4HR, 6HR) STAT 05/30/2024 4:39 PM [employer] PRO B-TYPE NATRIURETIC PEPTIDE STAT 05/30/2024 4:39 PM [employer] ECG 12-LEAD Routine 05/30/2024 4:03 PM [employer] CT CHEST PE ABDOMEN PELVIS W CONTRAST ED 05/30/2024 3:35 PM [employer] US GALLBLADDER ED 05/30/2024 3:25 PM [employer] URINALYSIS, MICROSCOPIC ONLY STAT 05/30/2024 2:30 PM [employer] URINALYSIS AND REFLEX TO MICROSCOPIC AND CULTURE STAT 05/30/2024 2:30 PM [employer] EGFR STAT 05/30/2024 10:42 AM [employer] DIFFERENTIAL AUTO STAT 05/30/2024 10: 42 AM [employer] LIPASE STAT 05/30/2024 10:42 AM [employer] COMPREHENSIVE METABOLIC PANEL STAT 05/30/2024 10:42 AM [employer] CBC WITH AUTO DIFFERENTIAL STAT 05/30/2024 10:42 AM [employer] SCREENING MAMMOGRAM BILATERAL W TRAY Schedule Routine, Read Routine (OP Routine) 12/06/2023 2:57 PM CDT Screening mammogram, encounter for COLONOSCOPY 09/22/2022 10:02 AM CDT HEPATITIS C ANTIBODY Routine 07/02/2020 10:36 AM CDT Encounter for hepatitis C screening test for low risk patient from Last 3 Months or Most Recently Relevant to Health Maintenance Results * NH AN ELECTIVE ENDOTRACHEAL AIRWAY, NH AN PROCEDURE PLACEHOLDER (08/01/2024 11:14 AM CDT) Lane Sosa CRNA - 08/01/2024 11:[address] Bow[address] CRNA 08/01/2024 11:14 AM Airway Patient location: OR Urgency: elective Indications for airway management: anesthesia Difficult airway: no Staff: Supervising provider: Asad Beth MD Placed by: ABSTRACT CLERK: Lane Bowser CRNA Emergent airway documentation: Risks [...] from the original result were not included. [facility] Cardiology [address] [place] [address], [id number], [address] Left Heart Catheterization Procedure Report 64 y.o. [...] and draped in sterile fashion. A 6 Albanian sheath was inserted in the Right Radial [...] ur Yellow Yellow Clarity, ur Clear Clear [facility] Specific gravity, ur 1.045(H) 1.003 - 1.030 [facility] pH, urine 5.5 [facility] Comment: Interpretive Data U rine pH is affected by diet, medications, systemic acid-base disturbances, and renal tubular function. pH may affect urinary stone formation. For example, urine pH below 6.0 may help reduce the tendency for calcium phosphate stones and pH greater than 6.0 may reduce the tendency for uric acid stone formation. Source: [facility] Current Interpretive Data was last revised on 2017 Protein, ur ql Trace Negative [facility] Glucose, ur ql Negative Negative [facility] Ketones, ur Negative Negative [facility] Bilirubin, ur Negative Negative [facility] Blood, ur Negative Negative [facility] Urobilinogen, ur <2.0 <2.0 mg/dL [facility] Nitrite, ur Negative Negative [facility] Leukocyte esterase, ur Negative Negative [facility] UA reflex comment Reflex conditions for microscopic UA and culture not met. [facility] Urine, clean voided 07/20/2024 10:24 AM CDT 07/20/2024 10:31 AM CDT us Kim Schaefer MD LAB MICROBIOLOGY - GENERAL ORD ERABLES Final Result Performing Organization Address [facility] Co de Phone Number [facility] [address] Department of Laboratories [place], [place] [id number] * eGFR (07/20/2024 5:43 AM CDT) eGFR 66 >=60 mL/min/1. 73 m2 Comment: [...] ORDERABLES Final Resul t Performing Organization Address City/[facility]/ZIP Co de Phone Number [facility] [address] Department of Laboratories [place], [place] [phone] * (ABNORMAL) CBC without differential (07/20/2024 5:43 AM CDT) Pathologist [facility] WBC 4.84 3.80 - 9.90 K/cumm Hgb 11.7(L) 11.9 - 15.5 g/dL [facility] Hct 38.6 35.6 - 45.5 % [facility] Plt 211 150 - 400 K/cumm [facility] MPV 11.0 9.1 - 12.3 fL [facility] RBC 4.11 3.90 - 5.20 M/cumm [facility] MCV 93.9 81.3 - 96.4 fL [facility] MCH 28.5 27.1 - 33.3 pg [facility] MCHC 30.3(L) 32.3 - 35.7 g/dL [facility] RDW CV 14.6 11.1 - 14.9 % [facility] RDW SD 50.5(H) 35.7 - 48.1 fL [facility] NRBC abs 0.00 0.00 - 0.01 K/cumm [facility] Blood 07/20/2024 5:43 AM CDT 07/20/2024 6:40 AM CDT us Shmuel Knox MD LAB BLOOD ORDERABLES Final Resul t Performing Organization Address [facility] de Phone Number [place] [address] [place] [address] * Phosphorus (07/20/2024 5:43 AM CDT) Phosphorus, pl 4.2 2.3 - 4.5 mg/dL Blood 07/20/2024 5:43 AM CDT 07/20/2024 6:45 AM CDT us Shmuel Knox MD LAB BLOOD ORDERABLES Final Resul t Performing Organization Address City/[facility] Co de Phone Number [facility] [address] [place] [address] * Magnesium (07/20/2024 5:43 AM CDT) Magnesium 2.0 1.4 - 2.5 mg/dL Blood 07/20/2024 5:43 AM CDT 07/20/2024 6:45 AM CDT us Shmuel Knox MD LAB BLOOD ORDERABLES Final Resul t Performing Organization Address [facility] Co de Phone Number [facility] [address] Department [place] [address] * Basic metabolic panel (07/20/2024 5:43 AM CDT) Pathologist [facility] Sodium 143 135 - 145 mmol/L Potassium, pl 4.1 3.3 - 4.9 mmol/L [facility] Chloride 106 97 - 110 mmol/L [facility] CO2 27 22 - 32 mmol/L [facility] Anion gap 10 2 - 15 mmol/L [facility] BUN 18 6 - 25 mg/dL [facility] Creatinine 0.96 0.60 - 1.10 mg/dL [facility] Glucose 124 70 - 199 mg/dL [facility] Comment: Interpretive Data Fasting glucose >/= 126 [...] 2022. Calcium 9.3 8.5 - 10.3 mg/dL [facility] Blood 07/20/2024 5:43 AM CDT 07/20/2024 6:45 AM CDT Shmuel Knox MD LAB BLOOD ORDERABLES Final Resul t Performing Organization Address [facility] Co de Phone Number [facility] [address] Department [place] [address] * Troponin T high-sensitivity 6-hour (07/20/2024 2:19 AM CDT) Trop T hs 13 <=14 ng/L Comment: Interpretive Data For further hscTnT resources including the diagnostic algorithm and an aid in interpretation, copy and paste this link: https://nrl.testcatyeppt.org/show/hsTrop Current Interpretive Data last revised 2020. Trop T hs delta -2 ng/L [facility] Trop T hs interp Insignificant [facility] Blood 07/20/2024 2:19 AM CDT 07/20/2024 2:34 AM CDT Jennifer Esquivel MD LAB BLOOD ORDERABLES Final Result Performing Organization Address [facility] de Phone Number [facility] [address] Department [place] [address] * Troponin T high-sensitivity 2-hour (07/19/2024 11:17 PM CDT) Trop T hs 14 <=14 ng/L Comment: Interpretive Data For further hscTnT resources including the diagnostic algorithm and an aid in interpretation, copy and paste this link: https://nrl.testcatyeppt.org/show/hsTrop Current Interpretive Data last revised 2020. Trop T hs delta -1 ng/L [facility] Trop T hs interp Insignificant [facility] Blood 07/19/2024 11:1 7 PM CDT 07/19/2024 11:32 PM CDT Jennifer Esquivel MD LAB BLOOD ORDERABLES Final Result Performing Organization Address [facility] Co de Phone Number [facility] [address] Department [place] [address] * XR Chest PA Lateral 2 Views [...] stable. Electronically signed by: Mc Cam M.D. Jennifer Esquivel MD IMG XR PROCEDURES Final Re sult * (ABNORMAL) Troponin T high-sensitivity series (baseline, 2hr, 4hr, 6hr) (07/19/2024 8:33 PM CDT) [facility] Trop T hs 15(H) <=14 ng/L Comment: Interpretive Data For further hscTnT resources including the diagnostic algorithm and an aid in interpretation, copy and paste this link: https://nrl.testcatalog.org/show/hsTrop Current Interpretive Data last revised 2020. Blood 07/19/2024 8:33 PM CDT 07/19/2024 8:50 PM CDT Jennifer Esquivel MD LAB BLOOD ORDERABLES Final Result [facility] [address] Department [place] [address] * eGFR (07/19/2024 8:33 PM CDT) [facility] eGFR 77 >=60 mL/min/1. 73 m2 Comment: [...] Esquivel MD LAB BLOOD ORDERABLES Final Result [facility] [address] Department [place] [address] * Differential, auto (07/19/2024 8:33 PM CDT) Neutrophil abs 4.11 1.50 - 6.50 K/cumm Imm gran abs 0.02 0.00 - 0.10 K/cumm [facility] Lymphocyte abs 1.21 0.80 - 3.30 K/cumm [facility] Monocyte abs 0.48 0.20 - 0.80 K/cumm [facility] Eosinophil abs 0.18 0.00 - 0.50 K/cumm [facility] Basophil abs 0.03 0.00 - 0.10 K/cumm [facility] Neutrophil pct 68.1 % [facility] Comment: Interpretive Data Percent cell count reference ranges are not reported, since discordance with absolute values may lead to misinterpretation of CBC data. Current Interpretive Data was last revised on 2017. Imm gran pct 0.3 % [facility] Comment: Interpretive Data Percent cell count reference ranges are not reported, since discordance with absolute values may lead to misinterpretation of CBC data. Current Interpretive Data was last revised on 2017. Lymphocyte pct 20.1 % [facility] Comment: Interpretive Data Percent cell count reference ranges are not reported, since discordance with absolute values may lead to misinterpretation of CBC data. Current Interpretive Data was last revised on 2017. Monocyte pct 8.0 % [facility] Comment: Interpretive Data Percent cell count reference ranges are not reported, since discordance with absolute values may lead to misinterpretation of CBC data. Current Interpretive Data was last revised on 2017. Eosinophil pct 3.0 % [facility] Comment: Interpretive Data Percent cell count reference ranges are not reported, since discordance with absolute values may lead to misinterpretation of CBC data. Current Interpretive Data was last revised on 2017. Basophil pct 0.5 % [facility] Comment: Interpretive Data Percent cell count reference ranges are not reported, since discordance with absolute values may lead to misinterpretation of CBC data. Current Interpretive Data was last revised on 2017. Blood 07/19/2024 8:33 PM CDT 07/19/2024 8:50 PM CDT us Jennifer Esquivel MD LAB BLOOD ORDERABLES Final Result [facility] [address] Department [place] [address] * Pro B-type natriuretic peptide (07/19/2024 8:33 [...] 8:33 PM CDT 07/19/2024 8:50 PM CDT Jennifer Esquivel MD LAB BLOOD ORDERABLES Final Result [facility] [address] Department [place] [address] * (ABNORMAL) CBC with auto differential (07/19/2024 8:33 PM CDT) WBC 6.03 3.80 - 9.90 K/cumm Hgb 12.4 11.9 - 15.5 g/dL [facility] Hct 39.0 35.6 - 45.5 % [facility] Plt 248 150 - 400 K/cumm [facility] MPV 10.9 9.1 - 12.3 fL [facility] RBC 4.31 3.90 - 5.20 M/cumm [facility] MCV 90.5 81.3 - 96.4 fL [facility] MCH 28.8 27.1 - 33.3 pg [facility] MCHC 31.8(L) 32.3 - 35.7 g/dL [facility] RDW CV 14.4 11.1 - 14.9 % [facility] RDW SD 48.0 35.7 - 48.1 fL [facility] NRBC abs 0.00 0.00 - 0.01 K/cumm [facility] Blood 07/19/2024 8:33 PM CDT 07/19/2024 8:50 PM CDT us Jennifer Esquivel MD LAB BLOOD ORDERABLES Final Result [facility] [address] Department [place] [address] * (ABNORMAL) Comprehensive metabolic panel (07/19/2024 8:33 PM CDT) Sodium 143 135 - 145 mmol/L Potassium, pl 4.2 3.3 - 4.9 mmol/L [facility] Comment:Hemolyzed; potassium value may be falsely elevated by as much as 0.3 - 0.5 mmol/L. Suggest redraw and reanalysis Chloride 106 97 - 110 mmol/L [facility] CO2 23 22 - 32 mmol/L [facility] Anion gap 14 2 - 15 mmol/L [facility] BUN 17 6 - 25 mg/dL [facility] Creatinine 0.84 0.60 - 1.10 mg/dL [facility] Glucose 131 70 - 199 mg/dL [facility] Comment: Interpretive Data Fasting glucose >/= 126 [...] 2022. Calcium 9.4 8.5 - 10.3 mg/dL [facility] Bilirubin, total 0.4 0.1 - 1.2 mg/dL [facility] Protein, pl 6.7 6.5 - 8.5 g/dL [facility] Albumin 4.1 3.5 - 5.0 g/dL [facility] Alk phos 87 40 - 130 Units/L [facility] ALT 30 7 - 45 Units/L [facility] AST 56(H) 10 - 45 Units/L [facility] Comment:Slightly Hemolyzed S pecimen Blood 07/19/2024 8:33 PM CDT 07/19/2024 8:50 PM CDT Jennifer Esquivel MD LAB BLOOD ORDERABLES Final Result Performing Organization Address [facility] Co de Phone Number [facility] [address] Department [place] [address] * ECG 12 lead (07/19/2024 8:24 PM CDT) 07/19/2024 8:24 PM CDT Narrative [facility] - 07/21/2024 3:20 PM CDT Vent Rate: 65 bpm RR Interval: 919 msec NH Interval: 165 msec QRS Duration: 97 msec QT Interval: 405 msec QTC Interval: 416 msec P-R-T Hitchcock: 49 - -11 - 47 degrees IMPRESSION: SINUS RHYTHM NORMAL ECG Electronically Signed By: Lucien Lennon MD Chris Danielle MD ECG ORDERABLES Final Result Performing Organization Address [facility] de Phone Number [facility] Md[address] [facility] * CTA Heart and Coronary [...] AM CDT Narrative 07/19/2024 2:03 PM CDT [facility] [place] [address] Transthoracic Echocardiographic Report Patient Name: LINSEY ARNOLD S : 1960 (64y 5m) Gender: F Study Date: 07/19/2024 11:33:36 AM Ht(Inch): 67 Wt(Lb): 283.29 BSA: 2.46 Prenatal Teacher: ELAN Location: [facility] Order Provider: ORTIZ MCKEE Heart Rate: 66 [...] LA Length 2C 5.53 cm AI Decel [place] 1.57 m/s2 LA Volume BP 75.94 ml [...] Procedure Note Todd Pruitt MD - 07/19/2024 [facility] [place]iac [place] [address] Transthoracic Echocardiographic Report Patient Name: LINSEY ARNOLD S : 1960 (64y 5m) Gender: F Study Date: 07/19/2024 11:33:36 AM Ht(Inch): 67 Wt(Lb): 283.29 BSA: 2.46 Prenatal Teacher: ELAN Location: [facility] Order Provider: ORTIZ MCKEE Heart Rate: 66 BMI: 44.36 BP: 174 / 80 Ref Provider: JESEORTIZ PROCEDURES: Echocardiographic Report: Transthoracic complete echo with [...] LA Length 4C 6.06 cm AI Decel Sunt4653.90 sec LA Length 2C 5.53 cm AI Decel [place]1.57 m/s2 LA Volume BP 75.94 ml AI NCV955.42 msec LA Volume Index 30.87 ml/m2 [ 16.00 - 34.00 ] MV E Peak Vel0.8 m/s [ 0.6 - 1.3 ] RV Base Dimen 2D 3.1 cm [ 2.5 - 4.2 ] MV A Peak Vel0.9 m/s [ 1.0 - 1.2 ] RA Volume 35.34 ml MV E/A0.8 ratio [ 0.8 - 1.5 ] RA Volume Index 14.37 ml/m2 MV Decel Daoa442.73 msec [ 104.00 - 258.00 ] AoR [...] 0.6 - 1.3 mg/dL POC Device Number [id number] [facility] POC Performer [id number] [facility] Blood 07/19/2024 12:2 4 PM CDT 07/19/2024 12:24 PM CDT us Aileen Savage NP LAB BLOOD ORDERABLES Final R esult [facility] [address] [facility]. 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 No exercise induced chest pain. No Echocardiographic evidence of ischemia. However, patient had [address] segment depressioninferolaterally. Consider cardiology consultation if clinically indicated. Electronically Signed By: Dr Teodoro Holley 06/05/2024 1:02:34 PM [employer] us Lucien Pelletier MD CV ECHO PROCEDURES Final Result * eGFR (05/31/2024 2:29 PM [employer]) eGFR 82 >=60 mL/min/1. 73 m2 Comment: [...] last reviewed 2021. Blood 05/31/2024 2:29 PM [employer] 05/31/2024 2:32 PM [employer] us Karol Dexter NP LAB BLOOD ORDERABLES Final Resul t Performing Organization Address [facility] Co de Phone Number [facility] [place] [address] [place] [address] * (ABNORMAL) CBC without differential (05/31/2024 2:29 PM [employer]) WBC 5.2 3.8 - 9.9 K/cumm Hgb 13.6 11.9 - 15.5 g/dL [facility] Hct 43.5 35.6 - 45.5 % [facility] Plt 245 150 - 400 K/cumm [facility] MPV 10.4 9.1 - 12.3 fL [facility] W RBC 4.72 3.90 - 5.20 M/cumm [facility] MCV 92.2 81.3 - 96.4 fL [facility] MCH 28.8 27.1 - 33.3 pg [facility] W MCHC 31.3(L) 32.3 - 35.7 g/dL [facility] RDW CV 14.7 11.1 - 14.9 % [facility] RDW SD 49.8(H) 35.7 - 48.1 fL [facility] NRBC abs 0.00 0.00 - 0.01 K/cumm [facility] Blood 05/31/2024 2:29 PM [employer] 05/31/2024 2:32 PM [employer] Karol Dexter NP LAB BLOOD ORDERABLES Final Resul t Performing Organization Address City/[facility]/ZIP Co de Phone Number [facility] [address] [employer] [address] [place], [place] [id number] * Phosphorus (05/31/2024 2:29 PM [employer]) Pathologist [facility] Phosphorus, pl 2.5 2.3 - 4.5 mg/dL Blood 05/31/2024 2:29 PM [employer] 05/31/2024 2:32 PM [employer] Karol Dexter NP LAB BLOOD ORDERABLES Final Resul t Performing Organization Address [facility] Co de Phone Number [facility] [address] [facility] [place] [address] * Magnesium (05/31/2024 2:29 PM [employer]) Magnesium 2.0 1.4 - 2.5 mg/dL Comment: Reference Data. Reference values for Labor and Delivery patients: < or = 0.7 mg/dL to > or = 7.3 mg/dL Current reference data last reviewd on 01/07/2015. Blood 05/31/2024 2:29 PM [employer] 05/31/2024 2:32 PM [employer] Karol Dexter NP LAB BLOOD ORDERABLES Final Resul t Performing Organization Address [facility] de Phone Number [facility] [place] [address] [facility] [place] [address] * (ABNORMAL) Comprehensive metabolic panel (05/31/2024 2:29 PM [employer]) Sodium 137 135 - 145 mmol/L Potassium, pl 3.7 3.3 - 4.9 mmol/L [facility] Chloride 99 97 - 110 mmol/L [facility] CO2 26 22 - 32 mmol/L [facility] Anion gap 12 2 - 15 mmol/L [facility] BUN 22 6 - 25 mg/dL [facility] Creatinine 0.80 0.60 - 1.10 mg/dL [facility] Glucose 118 70 - 199 mg/dL [facility] Comment: Interpretive Data Fasting glucose >/= [...] Calcium 9.2 8.5 - 10.3 mg/dL [facility] Bilirubin, total 0.9 0.1 - 1.2 mg/dL [facility] Protein, pl 6.9 6.5 - 8.5 g/dL [facility] Albumin 4.0 3.5 - 5.0 g/dL [facility] Alk phos 74 40 - 130 Units/L [facility] ALT 34 7 - 45 Units/L [facility] AST 55(H) 10 - 45 Units/L [facility] Blood 05/31/2024 2:29 PM [employer] 05/31/2024 2:32 PM [employer] Karol Dexter NP LAB BLOOD ORDERABLES Final Resul t [facility] [address] [facility]. [place] [address] * XR Abdomen 1 View AP (05/31/2024 9:45 AM [employer]) Anatomical Region Laterality Modality Body, Abdomen N/A Computed Radiogr aphy 05/31/2024 10:2 8 AM [employer] Narrative 05/31/2024 10:35 AM [employer] EXAM DESCRIPTION: XR ABDOMEN AP 1 VIEW [...] lower quadrant has increased compared to the gem carver radiograph obtained on CT yesterday. There is [...] of distension does appear greater than on gem carver image from CT scan performed yesterday, suggesting [...] Electronically signed by Rae Reynolds M.D. TW: Report ID: [id number] Reading Location: [place] [address] Procedure Note Rae Reynolds MD - 05/31/2024 [...] left lower quadrant has increased compared tothe gem carver radiograph obtained on CT yesterday. There is [...] Rae Reynolds M.D. TW: TW Report ID: [id number] Reading Location: [id number] us Naif Peguero MD IMG XR PROCEDURES Fi nal Result * Troponin T high-sensitivity series (baseline, 2hr, 4hr, 6hr) (05/30/2024 4:39 PM [employer]) Trop T hs 12 <=14 ng/L Comment: Interpretive Data For further hscTnT resources including the diagnostic algorithm and an aid in interpretation, copy and paste this link: https://nrl.testcatalog.org/show/hsTrop Current Interpretive Data last revised 2020. Blood 05/30/2024 4:39 PM [employer] 05/30/2024 4:41 PM [employer] us aBrry Infante MD LAB BLOOD ORDERABLES Final Result [facility] Department [place] [address] * Pro B-type natriuretic peptide (05/30/2024 4:39 PM [employer]) NT-proBNP <36 <=300 pg/mL Comment: Interpretive Comments: [...] Revised Date: 2017. Blood 05/30/2024 4:39 PM [employer] 05/30/2024 4:41 PM [employer] Barry Infante MD LAB BLOOD ORDERABLES Final Result Performing Organization Address City/[facility] Co de Phone Number [facility] [address] Department of Laboratories [place] [id number] * ECG 12 lead (05/30/2024 4:03 PM [employer]) 05/30/2024 4:03 PM [employer] Narrative [facility] Md7 - 05/30/2024 8:06 PM [employer] Vent Rate: 80 bpm RR Interval: 747 msec NH Interval: 158 msec QRS Duration: 98 msec QT Interval: 361 msec QTC Interval: 397 msec P-R-T Hitchcock: 54 - 9 - 66 degrees IMPRESSION: SINUS RHYTHM NONSPECIFIC T-WAVE ABNORMALITY BORDERLINE ECG Electronically Signed By: Davion Leggett MD Barry Infante MD ECG ORDERABLES Final Resul t [employer] Md[address] [facility] * CT Chest PE (CTA) Abdomen Pelvis W Contrast (05/30/2024 3:35 PM [employer]) Anatomical Region Laterality Modality Body N/A Computed Tomogra phy 05/30/2024 4:36 PM [employer] Narrative 05/30/2024 4:44 PM [employer] EXAM DESCRIPTION: CT CHEST PE (CTA) ABDOMEN [...] Gen Iverson M.D. BS: RAMSES Report ID: [id number] Reading Location: [id number] Procedure Note Gen Iverson MD - 05/30/2024 [...] Gen Iverson M.D. BS: BS Report ID: [id number] Reading Location: [place] [address] us Barry Infante MD IMG CT PROCEDURES Final Res ult * US Gallbladder (05/30/2024 3:25 PM [employer]) Anatomical Region Laterality Modality Abdomen N/A Ultrasound 05/30/2024 4:34 PM [employer]IVER Narrative 05/30/2024 4:36 PM [employer]IVER EXAM DESCRIPTION: US GALLBLADDER REASON FOR STUDY: [...] Gen Iverson M.D. BS: RAMSES Report ID: [id number] Reading Location: [id number] Procedure Note Gen Iverson MD - 05/30/2024 [...] Gen Iverson M.D. BS: BS Report ID: [id number] Reading Location: [place] [address] us Barry Infante MD IM US PROCEDURES Final Res ult * (ABNORMAL) Urinalysis reflex to microscopic and culture Urine (05/30/2024 2:30 PM [employer]) Color, ur Yellow Yellow Clarity, ur Clear [...] tendency for uric acid stone formation. Source: [employer] Current Interpretive Data was last revised on [...] [facility] (ESTER) Leukocyte esterase, ur 2+(A) Negative [facility] (ESTER) UA reflex comment Reflex to microscopic UA will be performed. [facility] (ESTER) Urine 05/30/2024 2:30 PM [employer] 05/30/2024 2:32 PM [employer] us Barry Infante MD LAB MICROBIOLOGY - GENERAL ORDERABLES Final Result Performing Organization Address City/[facility]/ZIP Co de Phone Number [facility] ([facility] 1 [facility] [place] [address] * (ABNORMAL) Urinalysis, microscopic only (05/30/2024 2:30 PM [employer]) WBC, ur 0-5 0 - 5 /HPF RBC, ur 3-5(A) 0 - 2 /HPF [facility] (ESTER) Epithelial cells, squamous, ur 1-5 0 - 5 /HPF [facility] (ESTER) Mucous, ur Present(A) [facility] (ESTER) Culture Reflex Comment Reflex conditions for urine culture (WBC >10) not met. [facility] (ESTER) Urine 05/30/2024 2:30 PM [employer] 05/30/2024 2:32 PM [employer] us Jeannine Montejo MD LAB URINE ORDERABLES Marcelina l Result [facility] (ESTER) 1 [facility] [place] [place] [address] * eGFR (05/30/2024 10:42 AM [employer]) eGFR >90 >=60 mL/min/1. 73 m2 Comment: [...] was last reviewed 2021. Testing performed by: [address] [address] Blood 05/30/2024 10:4 2 AM [employer] 05/30/2024 12:18 PM [employer]IVER Barry Infante MD LAB BLOOD ORDERABLES Final Result [facility] ([place]) 1 [facility] Department [place] [address] * (ABNORMAL) Differential, auto (05/30/2024 10:42 AM [employer]) Neutrophil abs 10.5(H) 1.5 - 6.5 K/cumm Comment:Testing performed by : [facility], [address] [place] [address]., [address] Imm gran abs 0.0 0.0 - 0.1 K/cumm [facility] (ESTER) Comment:Testing performed by : [facility], [address] [place] [address]., [address] Lymphocyte abs 0.6(L) 0.8 - 3.3 K/cumm [facility] (ESTER) Comment:Testing performed by : [address] [address] Monocyte abs 0.6 0.2 - 0.8 K/cumm [facility] (ESTER) Comment:Testing performed by : [address] [address] Eosinophil abs 0.0 0.0 - 0.5 K/cumm [facility] (ESTER) Comment:Testing performed by : [facility], [address] [place] [address]., [address] Basophil abs 0.1 0.0 - 0.1 K/cumm [facility] (ESTER) Comment:Testing performed by : [facility], [address] [place] [address]., [address] Neutrophil pct 88.6 % [facility] (ESTER) Comment: Interpretive Data Percent cell count reference ranges are not reported, since discordance with absolute values may lead to misinterpretation of CBC data. Current Interpretive Data was last revised on 2017. Testing performed by: [facility], [address] [place] [address]., [address] Imm gran pct 0.3 % [facility] (ESTER) Comment: Interpretive Data Percent cell count reference ranges are not reported, since discordance with absolute values may lead to misinterpretation of CBC data. Current Interpretive Data was last revised on 2017. Testing performed by: [facility], [address] [place] [address]., [address] Lymphocyte pct 5.4 % [facility] (ESTER) Comment: Interpretive Data Percent cell count reference ranges are not reported, since discordance with absolute values may lead to misinterpretation of CBC data. Current Interpretive Data was last revised on 2017. Testing performed by: [facility], [address] [place] [address]., [address] Monocyte pct 5.0 % [facility] (ESTER) Comment: Interpretive Data Percent cell count reference ranges are not reported, since discordance with absolute values may lead to misinterpretation of CBC data. Current Interpretive Data was last revised on 2017. Testing performed by: [facility], [address] [place] [address]., [address] Eosinophil pct 0.3 % [facility] (ESTER) Comment: Interpretive Data Percent cell count reference ranges are not reported, since discordance with absolute values may lead to misinterpretation of CBC data. Current Interpretive Data was last revised on 2017. Testing performed by: [address] [address] Basophil pct 0.4 % [facility] (ESTER) Comment: Interpretive Data Percent cell count reference ranges are not reported, since discordance with absolute values may lead to misinterpretation of CBC data. Current Interpretive Data was last revised on 2017. Testing performed by: [address], [address] Blood 05/30/2024 10:4 2 AM [employer]IVER 05/30/2024 10:45 AM [employer]IVER Barry Infante MD LAB BLOOD ORDERABLES Final Result [facility] (ESTER) 1 [facility] Department [place] [address] * (ABNORMAL) CBC with auto differential (05/30/2024 10:42 AM [employer]) WBC 11.9(H) 3.8 - 9.9 K/cumm Comment:Testing performed by : [address], [address] Hgb 14.8 11.9 - 15.5 g/dL [facility] (ESTER) Comment:Testing performed by : [address], [address] Hct 46.4(H) 35.6 - 45.5 % [facility] (ESTER) Comment:Testing performed by : [address], [address] Plt 311 150 - 400 K/cumm [facility] (ESTER) Comment:Testing performed by : [address], [address] MPV 11.3 9.1 - 12.3 fL [facility] (ESTER) Comment:Testing performed by : [address], [address] RBC 5.09 3.90 - 5.20 M/cumm [facility] (ESTER) Comment:Testing performed by : [address], [address] MCV 91.2 81.3 - 96.4 fL [facility] (ESTER) Comment:Testing performed by : [address] [place] [address] MCH 29.1 27.1 - 33.3 pg [facility] (ESTER) Comment:Testing performed by : [facility], [address] [place] [address], [address] MCHC 31.9(L) 32.3 - 35.7 g/dL [facility] (ESTER) Comment:Testing performed by : [facility], [address] [place] [address], [address] RDW CV 14.1 11.1 - 14.9 % [facility] (ESTER) Comment:Testing performed by : [facility], [address] [place] [address], [address] RDW SD 47.5 35.7 - 48.1 fL [facility] (ESTER) Comment:Testing performed by : [facility], [address] [place] [address], [address] NRBC abs 0.00 0.00 - 0.01 K/cumm [facility] (ESTER) Comment:Testing performed by : [facility], [address] [place] [address], [address] Blood Venous blood specimen / Unknown 05/30/2024 10:42 AM [employer] 05/30/2024 10:45 AM [employer]IVER Barry Infante MD LAB BLOOD ORDERABLES Final Result [facility] (ESTER) 1 [facility] [place] [address] * Lipase (05/30/2024 10:42 AM [employer] DRIVER) Lipase 12 10 - 99 Units/L Comment:Testing performed by : [facility], [address] [place] [address], [address] Blood Venous blood specimen / Unknown 05/30/2024 10:42 AM [employer]IVER 05/30/2024 10:45 AM [employer] DRIVER Barry Infante MD LAB BLOOD ORDERABLES Final Result [facility] (ESTER) 1 [facility] [place] [address] * (ABNORMAL) Comprehensive metabolic panel (05/30/2024 10:42 AM [employer]IVER) Sodium 140 135 - 145 mmol/L Comment:Testing performed by : [facility], [address] [place] [address]., [address] Potassium, pl 4.0 3.3 - 4.9 mmol/L [facility] (ESTER) Comment:Testing performed by : [facility], [address] [place] [address]., [address] Chloride 98 97 - 110 mmol/L [facility] (ESTER) Comment:Testing performed by : [facility], [address] [place] [address]., [address] CO2 27 22 - 32 mmol/L [facility] (ESTER) Comment:Testing performed by : [facility], [address] [place] [address], [address] Anion gap 15 2 - 15 mmol/L [facility] (ESTER) Comment:Testing performed by : [address] [address] BUN 20 6 - 25 mg/dL [facility] (ESTER) Comment:Testing performed by : [facility], [address] [place] [address], [address] Creatinine 0.67 0.60 - 1.10 mg/dL [facility] (ESTER) Comment:Testing performed by : [address] [address] Glucose 164 70 - 199 mg/dL CERNER [...] was last revised 2022. Testing performed by: [address] [address] Calcium 10.0 8.5 - 10.3 mg/dL [facility] (ESTER) Comment:Testing performed by : [facility], [address] [place] [address]., [address] Bilirubin, total 1.0 0.1 - 1.2 mg/dL [facility] (ESTER) Comment:Testing performed by : [facility], [address] [place] [address], [address] Protein, pl 7.7 6.5 - 8.5 g/dL [facility] (ESTER) Comment:Testing performed by : [facility], [address] [place] [address], [address] Albumin 4.4 3.5 - 5.0 g/dL [facility] (ESTER) Comment:Testing performed by : [facility], [address] [place] [address], [address] Alk phos 84 40 - 130 Units/L [facility] (ESTER) Comment:Testing performed by : [facility], [address] [place] [address], [address] ALT 38 7 - 45 Units/L [facility] (ESTER) Comment:Testing performed by : [facility], [address] [place] [address], [address] AST 54(H) 10 - 45 Units/L [facility] (ESTER) Comment:Testing performed by : [address], [address] Blood 05/30/2024 10:4 2 AM [employer]IVER 05/30/2024 10:45 AM [employer] DRIVER Barry Infante MD LAB BLOOD ORDERABLES Final Result [facility] (ESTER) 1 [facility] Department [place] [address] * Screening Mammogram Bilateral W Tray (12/06/2023 2:57 PM CDT) Anatomical Region Laterality Modality Breast Bilateral Mammography Narrative 12/07/2023 10:56 AM CDT Mammogram Technique: Bilateral Digital Breast Tomosynthesis, Bilateral C-view 2D Screening mammogram. Views obtained: bilateral craniocaudal and bilateral mediolateral oblique. Computer Aided Detection was performed. Mammogram Findings: The present examination has been compared to prior imaging studies performed at [facility] on 04/30/2019, at [facility] on 07/23/2020, and at [facility] on 10/19/2022. There are scattered areas [...] compared to prior imaging studies performed at [facility] on 04/30/2019, at [facility] on 07/23/2020, and at [facility] on 10/19/2022. There are scattered areas of [...] Hooker MD - 09/22/2022 10:02 AM CDT [facility] Patient Name: Linsey Arnold Procedure Date: 09/22/2022 10:02 AM Date of : 1960 Admit Type: Outpatient Age: 62 Gender: Female Attending MD: Rich Hooker M.D. Room: [facility] ENDOSCOPY ROOM 02 Note Status: Finalized Procedure: [...] The scope was passed under direct vision.The [id number] was introduced through the anusand advanced to the the cecum, identified byappendiceal orifice and ileocecal valve. The colonoscopy was performed with ease. The patient tolerated the procedure well. The quality of the bowelpreparation was excellent. The quality of the bowel preparation was evaluated using the BBPS (Bromide BowelPreparation Scale) with scores of: Right Colon [...] On: 09/22/2022 10:02 AM Recognized by the [employer] for promoting quality in endoscopy us Rich Hooker MD ENDOSCOPY PROCEDURES Final R [...] last revised on 2019. Testing performed by: [facility], [address] [facility], [place]., [address] Blood specimen (specimen) 07/02/2020 10:36 AM CDT 07/02/2020 8:25 PM CDT Melissa Cohen NP LAB MICROBIOLOGY - GENERAL ORDERABLES Final Result [facility] [id number] [facility]. [facility] [place] [address] from Last 3 Months or Most Recently Relevant to Health Maintenance Insurance [employer]ICE MEDICARE PPO COMMERCIAL GENERIC [employer]ICE MEDICARE PPO Advance Directives For more information, please contact: [phone] * Full Code (Latest Code Status on [...] 2:17 AM 07/15/2022 6:50 AM Care Teams Paper Bags Sewing Machine Operator Relationship Specialty Start Date End Date Lucien Pelletier MD PCP - General 09/01/16 Fredy Guaman MD [address] [place] [address] Referring Physician Neuromuscular Medicine 12/26/17 Doug Bains MD [address] [facility] [address] [place] [address] Consulting Physician General Surgery 08/02/24
--- OUTSIDE RECORDS SUMMARY | 2024-08-08 15:32 | XMS_ITS | Encounter Summary ---
Author Organization [facility] Healthcare Address [address] [place] [address] Care Team Providers Care University Demonstrator Name Role Phone Jeremy Flores MD Primary Care Provi susan Fredy Guaman MD Unavailable [phone] Doug Bains MD Unavailable [phone] Reason for Visit * Reason Onset Date Comments TEREZA Questions 07/23/2024 Encounter Details Date Type Department Care Team (Late st Contact Info) Description 07/23/2024 Telephone [facility] [address] [facility] [address] [place] [address] Jeremy Flores MD [address] [place] [address] [address] [place] [address] TEREZA Questions Social History Tobacco Use Types Packs/Day Years Used Date Smoking Tobacco: Never Passive Smoke Exposure: Never Smokeless Tobacco: Never Alcohol Use Standard Drinks/Week Comments No 0 (1 standard drink = 0.6 oz pur e alcohol) [place] Utilities Answer Date Recorded In the past 12 months has th e electric, gas, oil, or water company threatened to [...] 07/22/2024 How often do you attend chur ch or jainism services? 1 to 4 times per year 07/22/2024 Do you belong to any clubs o r organizations such as confucianism groups, unions, fraternal or athletic groups, or [...] have a drink containing alc ohol? Never 07/10/2024 Average Number of Drinks Not on file Frequency of Binge Drinking Not on file 05/2024 Overall Financial Resource Strain (CARDIA) Answe r [...] any time in the past 12 m [facility], were you homeless or living in a halfway (including now)? No 07/22/2024 Personal Safety Answer Date Recorded Have you ever been in or are you currently in a harmful physical or emotional relationship or is someone making you feel afraid or unsafe? 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 Yes Date Admitted: 07/19/24 Date Discharged: 07/22/24 Facility Admitted To: [facility] Reason for Stay? Cardiac catheter installed If prescribed new medications, do you have any questions or concerns? no Do you have enough medication to get you to your follow-up appointment? yes Since being released do you feel better, the same, or worse? same Date of TEREZA Appointment: 07/25/24 Do you have transportation to the appointment? yes Additional Comments: none Does message need to be routed? No documented in this encounter Plan of Treatment Upcoming Encounters Date Type Department Care Team (Latest Contact Info) Description 08/15/2024 8:30 AM CDT Hospital Encounter [facility] Operating Room [address] [place] [address] [place] [address] [place] [address] 08/15/2024 8:30 AM CDT - 08/15/2024 9:30 AM CDT Surgery [facility] Operating Room [address] [place] [address] [place] [address] [place] [address] Right ureteroscopy laser lithotripsy with stent placement Scheduled Procedures Name Priority Associated Diagnoses Date/Ti mo URETEROSCOPY Calculus of kidney 08/15/2024 8:30 AM [...] on filedocumented in this encounter Care Teams University Demonstrator Relationship Specialty Start Date End Date Jeremy Flores MD PCP - General 09/01/16 Fredy Guaman MD [address] [place], [place] [id number] Referring Physician Neuromuscular Medicine 12/26/17 Doug Bains MD [address] [place] [address] Consulting Physician General Surgery 08/02/24 documented as of this encounter
--- OUTSIDE RECORDS SUMMARY | 2024-08-08 15:32 | XMS_ITS | Encounter Summary ---
Author Organization [facility] Healthcare Address [address] [place] [address] Care Team Providers Care Permanent Mold Supervisor Name Role Phone Jeremy Flores MD Primary Care Provi susan Fredy Guaman MD Unavailable [phone] Doug Bains MD Unavailable [phone] Encounter Details Date Type Department Care Team (Late st Contact Info) Description 07/17/2024 Telephone [facility] [address] [place] [address] Floridalma Duffy, RN Social History Tobacco Use Types Packs/Day Years Used Date Smoking Tobacco: Never Passive Smoke Exposure: Never Smokeless Tobacco: Never Alcohol Use Standard Drinks/Week Comments No 0 (1 standard drink = 0.6 oz pur e alcohol) AUDIT-C Answer Date Recorded Q1: How often do you have a drink containing alc ohol? 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 Gender Identity Not on file Sexual Orientation Straight 09/24/2018 10 :04 PM CDT documented as of this encounter Miscellaneous Notes * Telephone Encounter - Floridalma Duffy RN - 07/17/2024 1:24 PM CDT Cardiac CTA patient pre-call instructions: [x] Nothing to eat or drink 2 hours prior to the procedure [x] No caffeine 24 hours prior to procedure [] Take all essential medications as prescribed (especially the following) Cardiac medication Thyroid medication Seizure medication [x] Beta vielka medication If you take medication in AM, please take prior to procedure If you take medication in PM, please take the night before the procedure [] If you take any of the following medication please hold for 48 hours Tadalafil (Cialis) Sildenafil (Viagra) Avanafil (Stendra) Vardenafil (Staxyn/Lavitra) Or any erectile dysfunctional medication [x] Do you take any medications for Pulmonary Hypertension? (Think vasodilators) If yes, what are the medications? (Remember this is for awareness, we are not to advise stopping of these medications.) History of IV contrast reaction [] Yes [x] No If Yes have you received a pretreatment regimen from your physician [] Yes [] No If No please reach out to your ordering physicians for pretreatment medication Nursing: Please briefly explain the procedure to the patient. Spoke with patient: [x] Yes [] No Left voicemail with detailed information: [] Yes [] No If you have any additional questions or concerns please call [phone] (CT control room) documented in this encounter Plan of Treatment Upcoming Encounters Date Type Department Care Team (Latest Contact Info) Description 08/15/2024 8:30 AM CDT Hospital Encounter [facility] Operating Room 1 [place] [address] [place] [address] [place] [address] 08/15/2024 8:30 AM CDT - 08/15/2024 9:30 AM CDT Surgery [facility] Operating Room 1 [place] [address] [place] [address] [place] [address] Right ureteroscopy laser lithotripsy with stent placement [...] on filedocumented in this encounter Care Teams Permanent Mold Supervisor Relationship Specialty Start Date End Date Jeremy Flores MD PCP - General 09/01/16 Fredy Guaman MD [address] [place] [address] Referring Physician Neuromuscular Medicine 12/26/17 Doug Bains MD [address] [place] [address] Consulting Physician General Surgery 08/02/24 documented as of this encounter
--- OUTSIDE RECORDS SUMMARY | 2024-08-08 15:32 | XMS_ITS | Encounter Summary ---
Author Organization [facility] Address [address] [place] [address] Phone Care Team Providers Care Osha Inspector Name Role Phone Jeremy Flores MD Primary Care Provi susan Fredy Guaman MD Unavailable [phone] Doug Bains MD Unavailable [phone] Encounter Details Date Type Department Care Team (Latest Contact Info) Description 01/04/2017 Orders Only [facility] CONVERSION Scanning, Provider Social History Tobacco Use Types Packs/Day Years Used Date Smoking Tobacco: Never Alcohol Use Standard Drinks/Week Comments No 0 (1 standard drink = 0.6 oz pur e alcohol) Comments Unknown Sex and Gender Information Value Date Recorded Sex Assigned at Not on file Legal Sex Female 11:27 AM [employer] Gender Identity Not on file Sexual Orientation Straight 09/24/2018 10 :04 PM CDT documented as of this encounter Plan of Treatment Upcoming Encounters Date Type Department Care Team (Latest Contact Info) Description 08/15/2024 8:30 AM CDT Hospital Encounter [facility] [address] [place] [address] [place] [address] [place] [address] 08/15/2024 8:30 AM CDT - 08/15/2024 9:30 AM CDT Surgery [facility] [address] [place] [address] [place] [address] [place] [address] Right ureteroscopy laser lithotripsy with stent placement Scheduled Procedures Name Priority Associated Diagnoses Date/Ti me URETEROSCOPY Calculus of kidney 08/15/2024 8:30 AM CDT documented as of this encounter Procedures Procedure Name Priority Date/Time Associated Diagnosis Comments OBSTETRIC/GYNECOLOGY ULTRASONOGRAPHY REPORT 01/04/2017 4:15 PM CDT documented in this encounter Results * OBSTETRIC/GYNECOLOGY ULTRASONOGRAPHY REPORT (01/04/2017 4:15 PM CDT) Anatomical Region Laterality Modality Ultrasound us Provider Scanning IMG OB US PROCEDURES Final Res ult documented in this encounter Visit Diagnoses Not on filedocumented in this encounter Additional Health Concerns Infection Onset Date Last Indicated Resolved Time COVID: Suspected 07/14/2022 07/14/2022 07/14/2022 11:08 PM CDT documented as of this encounter Care Teams Osha Inspector Relationship Specialty Start Date End Date Jeremy Flores MD PCP - General 09/01/16 Fredy Guaman MD [address] [place] [address] Referring Physician Neuromuscular Medicine 12/26/17 Doug Bains MD [address] [place] [address] Consulting Physician General Surgery 08/02/24 documented as of this encounter
--- NOTE | 2024-08-08 15:53 | ED_ITS ---
HPI - Extremity Injury (Upper) General Chief Complaint: Extremity Injury, Upper Stated Complaint: Right Shoulder Injury Time Seen by Provider: 08/08/24 15:40 Source: patient and RN notes reviewed Mode of arrival: ambulatory Limitations: no limitations History of Present Illness HPI narrative: 64-year-old female presents to the [facility] complaining of right shoulder pain. Patient says it has been an ongoing issue over the last few years. Patient says it continues to get worse every time her dog pulled her to the ground on the dog leash. Patient said approximately 3 weeks ago the dog pulled her to the ground extending her right arm out. Patient denies any her head or any loss of consciousness. Denies any head, neck, back pain. Patient says her pain is primarily in her right shoulder and radiates into her right humerus. Patient states the pain is not constant and does not occur always with movement however the pain does occur randomly with certain movements. Patient denies any chest pain, shortness of breath, or any other concerns. Patient has not seen an orthopedist yet for this problem. Related Data Home Medications ?Medication ?Instructions ?Recorded ?Confirmed ?Last Taken ?Type duloxetine 30 mg capsule,delayed mg PO 08/08/24 Unknown History release duloxetine 60 mg capsule,delayed mg PO 08/08/24 Unknown History release lisinopril 10 tablet 08/08/24 Unknown History mg-hydrochlorothiazide 12.5 mg tablet losartan 100 mg tablet mg 08/08/24 Unknown History losartan 50 mg tablet mg 08/08/24 Unknown History metoprolol succinate 25 mg mg PO 08/08/24 Unknown History tablet,extended release 24 hr pregabalin 200 mg capsule mg 08/08/24 Unknown History rosuvastatin 20 mg tablet mg 08/08/24 Unknown History spironolactone 25 mg tablet mg 08/08/24 Unknown History Allergies Allergy/AdvReac Type Severity Reaction Status Date / Time ciprofloxacin AdvReac Unknown Nausea and Verified 08/08/24 15:26 Vomiting Review of Systems Review of Systems: CONSTITUTIONAL: Denies fever, chills, or sweats. EYES: Denies visual changes, redness, or discharge. ENT: Denies rhinorrhea, congestion, sore throat, or otalgia. CARDIOVASCULAR: Denies chest pain, syncope, palpitations, or edema. RESPIRATORY: Denies cough or dyspnea. GASTROINTESTINAL: Denies abdominal pain, nausea, vomiting, or diarrhea. GENITOURINARY: Denies dysuria or hematuria. SKIN: Denies rash or itching. MUSCULOSKELETAL: Denies back pain, joint pain, or myalgia. Positive for Right shoulder pain. NEUROLOGIC: Denies headache, numbness, or weakness. PSYCHIATRIC: Denies anxiety or depression. All other systems reviewed are negative, except as documented in HPI. PMFSH Social History Social History Smoking status: Never smoker Comments At the time of my signature, I reviewed and agree with the nursing past medical, surgical, social, and family history. There is no relevant family history pertinent to the patient complaint. Exam Narrative: GENERAL: This is a well-nourished, well-developed adult, in no apparent distress. They are non ill-appearing, nontoxic appearing. HEAD: normocephalic, atraumatic. EYES: Sclera clear/white. Conjunctiva normal. Vision is grossly intact. Extraocular movements intact. Pupils PERRLA EARS: External ears normal, Hearing grossly intact. NOSE: External nose normal THROAT: Mucous membranes moist NECK: Normal range of motion CARDIOVASCULAR: Regular rate and rhythm RESPIRATORY: Respiratory rate normal, respiratory effort nonlabored, no respiratory distress SKIN: warm, Dry, intact with no suspicious lesions or rash, good texture and turgor. NEURO: awake, alert, and oriented to person, place and time. There were no obvious focal neurologic abnormalities. EXTREMITIES: Right shoulder: No obvious deformity, injury, swelling, redness, or bruising. Patient is able to fully abduct and adduct her shoulder. Normal range of motion to shoulder. No pain with movement. No bony tenderness. Patient is able to pronate and supinate. Normal flexion and extension of shoulder. Right humerus, no obvious deformity, injury, swelling, bruising, tenderness, redness. Neurovascular status intact distal injury. Radial pulse 2 +and palpable. Capillary refill less than 2 seconds. Sensation is normal. BACK: Nontender without deformity. No CVA tenderness. Course Course Emergency Course: Portions of this record may have been created with voice recognition software Level of Care: Express Care Visit Vital Signs Vital signs: Vital Signs Temperature 97.1 F L 08/08/24 15:16 Pulse Rate 65 08/08/24 15:16 Respiratory Rate 20 08/08/24 15:16 Blood Pressure 142/83 H 08/08/24 15:16 Pulse Oximetry 98 08/08/24 15:16 Oxygen Delivery Room Air 08/08/24 15:16 Temperature 97.1 F L 08/08/24 15:16 Pulse Rate 65 08/08/24 15:16 Respiratory Rate 20 08/08/24 15:16 Blood Pressure 142/83 H 08/08/24 15:16 Pulse Oximetry 98 08/08/24 15:16 Oxygen Delivery Room Air 08/08/24 15:16 Reviewed MDM - Extremity Injury (Upper) MDM Narrative Medical decision making narrative: X-ray negative for acute fractures or findings of her right shoulder and humerus. Mild arthritis changes to the patient's right shoulder joint. Offered patient sling for comfort and she declined. Recommend she follow-up with orthopedist. Discussed physical exam findings. Advised supportive measures and signs/symptoms to go to the ER. Pt is appropriate for outpt treatment and f/u. Differential Diagnosis Differential diagnosis: Likely dislocation of shoulder, fracture of humerus and other (Shoulder fracture, shoulder strain, ligament/tendon injury) Imaging Data Radiologist's impression: ITS Impressions Humerus X-Ray 08/08/24 15:51 IMPRESSION: No acute osseous abnormality right humerus. Shoulder X-Ray 08/08/24 15:52 IMPRESSION: No acute osseous abnormality right shoulder. Critical Care Time Critical Care Time Critical Care Time: No Discharge Plan Discharge Clinical Impression: Acute shoulder pain Qualifiers: Laterality: right Qualified Code(s): M25.511 - Pain in right shoulder Patient Disposition: Home Condition: Stable Instructions: Arthritis (ED) Additional Instructions: Rest and elevate the arm; Apply ice 15-20 minute intervals several times a day You may wear sling for comfort. Motrin 600mg -800mg every 8 hours, alternate with Tylenol 1000mg every 8 hours as needed Follow up with your primary care provider as needed in 1-2 weeks Follow-up with orthopedist in 3-5 days. Patient Language: Turkish Prescriptions: No Action losartan 50 mg tablet spironolactone 25 mg tablet metoprolol succinate 25 mg tablet extended release 24 hr PO lisinopril-hydrochlorothiazide 10-12.5 mg tablet losartan 100 mg tablet rosuvastatin 20 mg tablet duloxetine 30 mg capsule,delayed release(DR/EC) PO duloxetine 60 mg capsule,delayed release(DR/EC) PO pregabalin 200 mg capsule Follow-up/Referrals: Sandra,Suhas Chawla MD [Primary Care Provider] - Bimal Blankenship MD [Physician] - 3 Days Time of Disposition: 15:59
== END 2024-08-08 16:12 | disposition home or self-care (01) ==
PROVIDERS: PCP Internal Medicine
DX: M25.511 Pain in right shoulder (principal)
CPT/HCPCS: 73030; 73060; 99213; G0463

== ENCOUNTER 2024-08-22 11:29 | Outpatient (CLI) | payer MEDICARE, SELFPAY ==
--- NOTE | ~2024-08-22 | MR_ITS ---
MRI of the right shoulder Technique: Axial proton-density fat-sat images, coronal proton density fat-sat and T2 fat-sat images, and sagittal T1-weighted and T2 fat-sat images were acquired. Clinical History: Pain Findings: There is moderate AC joint degenerative change, with bony productive change of the distal c lavicle. Coracoclavicular, coracoacromial, and coracohumeral ligaments are intact. There is severe supraspinatus and infraspinatus tendinosis without partial or full-thickness tear. Plascencia bscapularis tendon is intact with mild tendinosis. Tendon of the long head of the biceps is intact. No labral tear evident. Inferior glenohumeral ligament is intact. There are small glenohumeral joint effusion without degener ative change of the glenohumeral joint. There is minimal fluid in the subacromial/subdeltoid bursa. N o muscle atrophy or edema. Impression: Severe rotator cuff tendinosis without partial or full-thickness tear. Moderate AC joint degenerative change. Minimal subacromial/subdeltoid bursitis. Small glenohumeral joint effusion, nonspecific. Reviewed, dictated and finalized at location . Impression: Severe rotator cuff tendinosis without partial or full-thickness tear. Moderate AC joint degenerative change. Minimal subacromial/subdeltoid bursitis. Small glenohumeral joint effusion, nonspecific.
== END 2024-08-22 11:30 | disposition home or self-care (01) ==
LOC: GOSHIMG 11:30
PROVIDERS: PCP Internal Medicine; Visit Provider Physician Assistant Surgical
DX: M75.31 Calcific tendinitis of right shoulder (principal); M19.011 Primary osteoarthritis, right shoulder; M75.51 Bursitis of right shoulder; M25.411 Effusion, right shoulder
CPT/HCPCS: 73221

== ENCOUNTER 2024-08-28 16:32 | Outpatient (CLI) | payer MEDICARE, SELFPAY ==
--- NOTE | ~2024-08-28 | CT_ITS ---
Non-contrast CT scan of the Abdomen and Pelvis Clinical indication: Kidney stones Technique: 2.5 mm axial scans were obtained through the abdomen and pelvis without intravenous or or al contrast. Dose reduction technique was used on this scan by utilizing automated exposure control a nd iterative reconstruction technique. The dose-length product (DLP) was 706.75 mGy-cm. Findings: Images through the lung bases reveal no abnormalities. There are nonobstructing stones in the posterior right kidney, largest measuring 10 mm in diameter. T here is moderate right hydronephrosis and mild right hydroureter, though no definite ureteral stones seen currently. The liver, spleen, pancreas, gallbladder, left kidney, and adrenals appear normal. There is no aorti c aneurysm. There is no evidence of bowel obstruction. There is a small fluid collection is deep to the lower rig ht anterior abdominal wall measuring 4.8 x 1.9 cm (axial image 143 for example), with suggestion of p rior surgical port placement in this region. Images through the pelvis were performed. There is no evidence of ascites or lymphadenopathy. Urinary bladder unremarkable. No pelvic mass seen. Degenerative spondylosis of the spine noted. Impression: Moderate right hydroureteronephrosis, with no definite ureteral stone currently. Consider recently pa ssed stone. Nonobstructing right renal stones. 4.8 x 1.9 cm fluid collection just deep to the lower right anterior abdominal wall, presumably postop erative seroma, versus possibly other cystic lesion. Reviewed, dictated and finalized at [facility]. Impression: Moderate right hydroureteronephrosis, with no definite ureteral stone currently . Consider recently passed stone. Nonobstructing right renal stones. 4.8 x 1.9 cm fluid collection just deep to the lower right anterior abdominal w all, presumably postoperative seroma, versus possibly other cystic lesion.
--- OUTSIDE RECORDS SUMMARY | 2024-08-28 16:38 | XMS_ITS | Clinical Summary ---
Author Organization [facility] Address [address] [place] [address] Phone Care Team Providers Care Visitor Use Assistant Name Role Phone Unavailable Primary Care Provider [...] (1 - 1-dose 75+ series) 2034 Insurance [facility] BLUE ACCESS/TRUE BLUE PPO
--- OUTSIDE RECORDS SUMMARY | 2024-08-28 16:38 | XMS_ITS | Encounter Summary ---
Author Organization [facility] Address [address] [place] [address] Care Team Providers Care Director Customer Name Role Phone Jeremy Flores MD Primary Care Provi susan Fredy Guaman MD Unavailable [phone] Doug Bains MD Unavailable [phone] Encounter Details Date Type Department Care Team (Late st Contact Info) Description 06/27/2018 Telephone [facility] [address] [facility] [address] [place] [address] Berkley Herrera RN Social History Tobacco Use Types Packs/Day Years Used Date Smoking Tobacco: Never Smokeless Tobacco: Never Alcohol Use Standard Drinks/Week Comments No 0 (1 standard drink = 0.6 oz pur e alcohol) Comments No Sex and Gender Information Value Date Recorded Sex Assigned at Not on file Legal Sex Female 11:27 AM [employer] Gender Identity Not on file Sexual Orientation Straight 09/24/2018 10 :04 PM CDT documented as of this encounter Plan of Treatment Not on file documented as of this encounter Visit Diagnoses Not on filedocumented in this encounter Additional Health Concerns Infection Onset Date Last Indicated Resolved Time COVID: Suspected 07/14/2022 07/14/2022 07/14/2022 11:08 PM CDT documented as of this encounter Care Teams Director Customer Relationship Specialty Start Date End Date Jeremy Flores MD PCP - General 09/01/16 Fredy Guaman MD [address] [place] [address] Referring Physician Neuromuscular Medicine 12/26/17 Doug Bains MD [address] [place] [address] Consulting Physician General Surgery 08/02/24 documented as of this encounter
--- OUTSIDE RECORDS SUMMARY | 2024-08-28 16:38 | XMS_ITS | Clinical Summary ---
Author Organization [facility] Address [address] [facility] [place] [address] Phone Care Team Providers Care Recreation Therapy Aides Teacher Name Role Phone Darshan Lockwood DPM Unavailable [phone] Provider, Not On File Primary Care [...] age to complete this topic Care Teams Recreation Therapy Aides Teacher Relationship Specialty Start Date End Date Provider, Not On File [place] PCP - General 11/05/15 Darshan Lockwood DPM Consulting Physician Podiatry 10/26/15
--- OUTSIDE RECORDS SUMMARY | 2024-08-28 16:38 | XMS_ITS | Referral Summary ---
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 Name Role Phone Lucien Pelletier MD Primary Care Provi susan Fredy Guaman MD Unavailable [phone]- [phone] Doug Bains MD Unavailable [phone] Encounters Date Type Department Care Team Description 08/21/2024 ACO Clinical Pharmacist [facility] Care [address] [address] Lilliam Senior Formerly [facility] 08/21/2024 9:45 AM CDT Office Visit [facility] Surgery [address] [place] [address] [address] [place] [address] Doug Bains MD Recurrent ventral hernia (Primary Dx) 08/15/2024 8:30 AM CDT - 08/15/2024 9:30 AM CDT Surgery [facility] Operating Room [address] [place] [address] Naif Peguero MD Right ureteroscopy, laser lithotripsy, right stent placement, retrograde pyelogram, stone extraction 08/15/2024 8:20 AM CDT Anesthesia Event [facility] Operating Room [address] [place] [address] Gurpreet Can MD 08/15/2024 6:58 AM CDT - 08/15/2024 11:09 AM CDT Hospital Encounter [facility] Operating Room [address] [place] [address] Naif Peguero MD Calculus of kidney Discharge Disposition: Discharge to home or self care 08/01/2024 9:16 AM CDT - 08/02/2024 2:25 PM CDT Hospital Encounter [address] [phone] Doug Bains MD Irreducible incisional hernia (Primary Dx) Discharge Disposition: Discharge to home or self care 08/01/2024 11:30 AM CDT - 08/01/2024 1:10 PM CDT Surgery [facility] Operating Room [address] [place] [phone] Doug Bains MD Incisional Hernia Repair with Mesh 08/01/2024 10:58 AM CDT Anesthesia Event [facility] Operating Room [address] [place] [phone] Asad Beth MD Czajkowski, Lesly June, NP 07/30/2024 8:45 AM CDT Pre-Admission Testing [facility] Pre Anesthesia Testing [address] [place] [phone] 07/25/2024 2:00 PM CDT Office Visit [facility] [address] [facility] [address] [place] [address] Aileen Savage NP Dyspnea on exertion (Primary Dx); Abnormal cardiovascular stress test 07/23/2024 Telephone [facility] [address] [facility] [address] [place] [phone] Lucien Pelletier MD TEREZA Questions 07/22/2024 2:50 PM CDT - 07/22/2024 4:40 PM CDT Surgery [facility] [address] [place] [phone] Lloyd Nix MD LEFT HEART CATHETERIZATION WITH CORONARY ANGIOGRAPHY AND WITH OR WITHOUT LEFT VENTRICULOGRAM [id number] 07/19/2024 8:56 PM CDT - 07/22/2024 6:15 PM CDT Hospital Encounter [facility] [address] [place] [address] Jennifer Esquivel MD Li, MD Jhoan Bocanegra Juletta, MD Sripada, Sarada, MD 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, unspecified vessel or lesion type (HCC) (Primary Dx) Discharge Disposition: Discharge to home or self care 07/20/2024 Results Follow-Up [facility] [address] [place] [address] [address] [address] Ortiz Mckee MD PhD CTA Heart and Coronary Arteries W Morphology when Performed 07/19/2024 Results Follow-Up [facility] [address] [place] [address] [address] [address] Ortiz Mckee MD PhD Transthoracic Echo (TTE) Complete W Doppler/CF 07/19/2024 11:24 AM CDT - 07/19/2024 11:59 PM CDT Hospital Encounter [facility] Echo Lab [address] [place] [address] Other chest pain Discharge Disposition: Discharge to home or self care 07/19/2024 11:24 AM CDT - 07/19/2024 11:59 PM CDT Hospital Encounter [facility] [address] [place] [address] Other chest pain Discharge Disposition: Discharge to home or self care 07/17/2024 Telephone [facility] [address] [place] [phone] Floridalma Duffy RN 07/10/2024 Telephone [facility] [address] [place] [address] [address] [address] Ortiz Mckee MD PhD blood pressure concerns 07/10/2024 11:15 AM CDT Office Visit [facility] [address] [facility] [address] [place] [phone] Doug Bains MD Hernia of abdominal wall 07/02/2024 Telephone [facility] [address] [facility] [address] [place] [address] Marian Can Chart Review ([facility] adherence) 06/24/2024 Telephone [facility] [address] [facility] [address] [place] [address] Lucien Pelletier MD Referral Request 06/24/2024 Telephone [facility] [address] [place] [address] [address] [place] [address] Lucien Pelletier MD Referral Request 06/19/2024 Telephone [facility] [address] [place] [address] [address] [place] [address] Ortiz Mckee MD PhD 06/18/2024 Telephone [facility] [address] [place] [address] [address] [place] [address] Darshan Lopez MD 06/18/2024 1:00 PM CDT Office Visit [facility] [address] [place] [address] [address] [place] [address] Ortiz Mckee MD PhD Other chest pain (Primary Dx) 06/12/2024 11:00 AM CHAR CONVEYOR TENDER CELLAR Office Visit [facility] [address] [place] [address] [address] [place] [address] Aileen Savage NP Nephrolithiasis (Primary Dx); Morbid obesity with BMI of 40.0-44.9, adult (HCC); Dyspnea on exertion; Abnormal cardiovascular stress test; Partial small bowel obstruction (HCC); Hernia of abdominal wall 06/11/2024 Telephone [facility] [address] [place] [address] [address] [place] [address] Lucien Pelletier MD 06/07/2024 Telephone [facility] [address] [facility] [address] [place] [address] Lucien Pelletier MD 06/06/2024 Telephone [facility] [address] [facility] [address] [place] [address] Lucien Pelletier MD Test Results 06/06/2024 Telephone [facility] [address] [facility] [address] [place] [address] Lucien Pelletier MD Recommendation Request (Nephrology); kidney stones 06/06/2024 [facility] [address] [facility] [address] [place] [address] Lucien Pelletier MD Medical Records Request 06/05/2024 [facility] [address] [facility] [address] [place] [address] Lucien Pelletier MD Medical Question/Miscellaneou s 06/05/2024 10:07 AM CHAR CONVEYOR TENDER CELLAR - 06/05/2024 11:59 PM CHAR CONVEYOR TENDER CELLAR Hospital Encounter [facility] [address] [place] [address] Dyspnea on exertion Discharge Disposition: Discharge to home or self care 06/03/2024 TEREZA IP Outreach [facility] Accountable Care Organization [address] [place] [address] Madelin Hernández MA 05/31/2024 12:21 PM CHAR CONVEYOR TENDER CELLAR - 06/01/2024 5:10 PM CHAR CONVEYOR TENDER CELLAR Hospital Encounter [facility] [address] [address] [facility] [place] [address] Alec Rivera Jr., MD Discharge Disposition: Discharge to home or self care 05/31/2024 10:58 AM CHAR CONVEYOR TENDER CELLAR - 05/31/2024 11:59 PM CHAR CONVEYOR TENDER CELLAR Hospital Encounter [facility] Emergency, Room R Discharge Disposition: Discharge to home or self care 05/30/2024 2:23 PM CHAR CONVEYOR TENDER CELLAR - 05/31/2024 11:25 AM CHAR CONVEYOR TENDER CELLAR Emergency [facility] Emergency Department 1 [place] [address] Barry Infante MD Wala, Keegan Swenson MD Nausea and vomiting, unspecified vomiting type (Primary Dx); Bowel obstruction (HCC); Renal stone; Gallbladder stone without cholecystitis or obstruction Discharge Disposition: Discharge to a short term hospital for IP from Last 3 Months Allergies Active Allergy Reactions Criticality Noted Date Comments Ciprofloxacin Dizziness,Nausea only Low Neomycin Nausea only Low Medications acetaminophen (TYLENOL) 500 mg tablet Take 2 tablets (1,000 mg total) by mouth 2 (two) times a day Active cholecalcifer ol 25 mcg (1,000 unit) tablet Take 1 tablet (1,000 Units total) by mouth every morning Active famotidine (PEPCID) 20 mg tablet Take 1 tablet (20 mg total) 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 before breakfast Active aspirin 81 mg enteric [...] mg total) by mouth every morning Active spironolacton e (ALDACTONE) 25 mg tablet Take 1 tablet (25 mg total) by mouth every morning Active HYDROcodone-a cetaminophen (NORCO) 5-325 mg per tabletIndicat ions:Pain Take 1-2 tablets by mouth every 4 (four) hours as needed for pain 30 tablet 08/03/19 25 025 Active Additional Information Patient not taking.Reported on 08/21/[address] (CYMBALTA) 60 mg capsule Take 1 capsule (60 mg total) by mouth daily Active oxyBUTYnin XL (DITROPAN-XL) 10 mg 24 hr tablet Take 1 tablet (10 mg total) by mouth daily 30 tablet 05/08/20 25 025 Active rosuvastatin (CRESTOR) 20 mg tablet Take 1 tablet by mouth once daily 30 tablet 08/23/19 25 Active pregabalin (LYRICA) 200 mg capsule Take 1 capsule by mouth twice daily 60 capsule 08/27/19 25 Active loperamide (IMODIUM A-D) 2 mg tablet take 2 tablet by per tube route after 1st loose stool and 1 tablet (2 mg) after each next bowel movement; do not exceed 16 mg in 24hrs 0 0 12/24/19 14 025 Discontinued(Er ror) pregabalin (LYRICA) 200 mg capsule Take 1 capsule by mouth twice daily 60 capsule 3 04/25/[address] (CYMBALTA) 30 mg capsuleIndica tions:Neuropa thic pain Take 1 capsule (30 mg total) by mouth daily 90 capsule 1 06/12/19 25 025 Discontinued(Er ror) DULoxetine DR (CYMBALTA) 60 mg capsuleIndica tions:Neuropa thic pain Take 1 capsule (60 mg total) by mouth daily 90 capsule 1 06/12/19 25 025 Discontinued(Er ror) aspirin 81 mg enteric coated tablet Take 1 tablet (81 mg total) by mouth daily 30 tablet 06/19/19 025 Discontinued(Er ror) metoprolol XL (TOPROL-XL) 25 mg extended release tablet Take 1 tablet (25 mg total) by mouth daily 30 tablet 06/19/19 025 Discontinued(Er ror) losartan (COZAAR) 100 mg tablet Take 1 tablet (100 mg total) by mouth daily 90 tablet 3 07/11/19 025 Discontinued(Er ror) spironolacton e (ALDACTONE) 25 mg tablet Take 1 tablet (25 mg total) by mouth daily 30 tablet 07/20/19 025 Discontinued(Er ror) empagliflozin (JARDIANCE) 10 mg tabletIndicat ions:Heart Failure Take 1 tablet (10 mg total) by mouth daily 30 tablet 1 07/24/19 25 025 Discontinued(Er ror) rosuvastatin (CRESTOR) 20 mg tablet Take 1 tablet by mouth once daily 30 tablet 07/25/19 25 025 Discontinued(Er ror) rosuvastatin (CRESTOR) 20 mg tablet Take 1 tablet (20 mg total) by mouth nightly 025 Discontinued HYDROcodone-a cetaminophen (NORCO) 5-325 mg per tabletIndicat ions:Pain Take 1 tablet by mouth every 8 (eight) hours as needed for pain for up to 3 days 9 tablet 08/16/19 25 025 Active Problems Problem Noted Date Diagnosed Date Irreducible incisional hernia 08/01/2024 Calculus of kidney 07/26/2024 Recurrent ventral hernia 07/25/2024 Coronary artery disease invo lving te-moak heart with unstable angina pectoris 07/20/2024 Abnormal [...] medications. Assessment & Plan (06/12/2024 11:17 AM CHAR CONVEYOR TENDER CELLAR): Refer for Cardiology consult. Hernia of abdominal wall 06/12/2024 Assessment & Plan (06/12/2024 11:19 AM CHAR CONVEYOR TENDER CELLAR): After Cardiology consult we will consider referral to General surgery. Partial small bowel obstruction 05/31/2024 Assessment & Plan (06/12/2024 11:18 AM CHAR CONVEYOR TENDER CELLAR): Aileen Marshall NP have personally reviewed pertinent inpatient and/or ED records, including discharge medications and Clindesk if applicable. This patient's discharge medication list has been reviewed and reconciled with her outpatient medication list and has also been reviewed with patient and/or caregiver. I have noted any changes. Resolved. Bilateral primary osteoarthritis of knee 025 Assessment & Plan (05/20/2024 4:34 PM CHAR CONVEYOR TENDER CELLAR): Referral to physical therapy IFG (impaired fasting glucose) 02/09/2023 Assessment & Plan (05/20/2024 4:20 PM CHAR CONVEYOR TENDER CELLAR): Lab Results Component Value Date HGBA1C 6.2 [...] consult. Assessment & Plan (06/12/2024 11:18 AM CHAR CONVEYOR TENDER CELLAR): Refer for Cardiology consult. Assessment & Plan (05/20/2024 4:21 PM CHAR CONVEYOR TENDER CELLAR): Exertional dyspnea without angina. Cannot exclude cardiac [...] last pap 2017, due 2020- [facility]; annual mammogram and monthly self breast [...] 11/10/2017 Assessment & Plan (05/20/2024 4:20 PM CHAR CONVEYOR TENDER CELLAR): S/p XRT, LAR with ken dissection followed [...] 05/12 Assessment & Plan (06/12/2024 10:51 AM CHAR CONVEYOR TENDER CELLAR): BMI Follow-up includes: nutrition counseling, exercise counseling, and education provided. Assessment & Plan (05/20/2024 3:52 PM CHAR CONVEYOR TENDER CELLAR): BMI Follow-up includes: nutrition counseling, exercise counseling, and education provided. Assessment & Plan (10/18/2023 9:34 AM CDT): BMI Follow-up includes: nutrition counseling, exercise counseling, and education provided. Assessment & Plan (02/09/2023 12:40 PM CDT): BMI Follow-up includes: nutrition counseling, exercise counseling, and education provided. Assessment & Plan (04/16/2019 3:11 PM CHAR CONVEYOR TENDER CELLAR): BMI Follow-up includes: nutrition counseling, exercise counseling and education provided. Assessment & Plan (02/15/2018 10:35 AM CHAR CONVEYOR TENDER CELLAR): BMI Follow-up includes: nutrition counseling, exercise counseling and education provided. Assessment & Plan (06/06/2017 11:07 AM CHAR CONVEYOR TENDER CELLAR): BMI Follow-up includes: nutrition counseling, exercise counseling and education provided. Nephrolithiasis 06/06/2017 Assessment & Plan (06/12/2024 11:18 AM CHAR CONVEYOR TENDER CELLAR): Refer for urology consult. Assessment & Plan (05/20/2024 4:20 PM CHAR CONVEYOR TENDER CELLAR): No intercurrent events She is compliant with urocit-K Assessment & Plan (04/16/2019 3:35 PM CHAR CONVEYOR TENDER CELLAR): No intercurrent events She is compliant with urocit-K Assessment & Plan (02/15/2018 11:01 AM CHAR CONVEYOR TENDER CELLAR): Controlled with urinary alkalization Assessment & Plan (06/06/2017 11:19 AM CHAR CONVEYOR TENDER CELLAR): Uric acid and calcium oxalate S/p sheath [...] GI. Assessment & Plan (04/16/2019 3:36 PM CHAR CONVEYOR TENDER CELLAR): sxs remain well controlled with famotidine and dietary discretion Assessment & Plan (06/06/2017 11:22 AM CHAR CONVEYOR TENDER CELLAR): Good response to H2B Reviewed dietary avoidance. 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 Assessment & Plan (06/06/2017 11:16 AM CHAR CONVEYOR TENDER CELLAR): Laboratory w/u from last visit WNL Chemo-induced Reviewed behavioral compensatory techniques Assessment & Plan (04/06/2017 2:51 PM CHAR CONVEYOR TENDER CELLAR): Start workup with memory labs. Essential (primary) hypertension 06/29/2016 Overview (09/02/2016): Essential hypertension Assessment & Plan (02/15/2018 10:56 AM CHAR CONVEYOR TENDER CELLAR): Hypertension is stable on lisinopril/HCTZ. Continue current treatment regimen. Dietary sodium restriction. Continue current medications. Blood pressure will be reassessed at the next regular appointment. Assessment & Plan (06/06/2017 11:19 AM CHAR CONVEYOR TENDER CELLAR): Hypertension is stable. Continue current treatment regimen. [...] 11/05/2015 Assessment & Plan (05/20/2024 4:26 PM CHAR CONVEYOR TENDER CELLAR): Chemotherapy induced neuropathy When Linsey saw [facility] [...] medication. Assessment & Plan (04/16/2019 3:43 PM CHAR CONVEYOR TENDER CELLAR): She understands that these sxs will not [...] Hypertension Assessment & Plan (05/20/2024 4:14 PM CHAR CONVEYOR TENDER CELLAR): Linsey is normotensive on lisinopril HCTZ Continue [...] 06/30/2022 Assessment & Plan (04/16/2019 3:37 PM CHAR CONVEYOR TENDER CELLAR): HCTZ History of rectal cancer 02/06/2018 Intractable [...] 07/02/2020 Assessment & Plan (02/15/2018 10:55 AM CHAR CONVEYOR TENDER CELLAR): There is chronic ankle pain with assoc'ed edema probably from neuropathy There is no e/o charcot joint seen on most recent plain radiographs from 2016 -- IMPRESSION: 1. Bilateral plantar calcaneal spur [...] provided. Assessment & Plan (04/06/2017 2:04 PM CHAR CONVEYOR TENDER CELLAR): BMI Follow-up includes: nutrition counseling, exercise counseling and education provided. Malignant neoplasm of colon 06/11/2014 07/02/2020 Overview (07/15/2016): Colon cancer Assessment & Plan (04/16/2019 3:49 PM CHAR CONVEYOR TENDER CELLAR): S/p XRT, LAR with ken dissection followed [...] colonoscopies Assessment & Plan (02/15/2018 11:05 AM CHAR CONVEYOR TENDER CELLAR): S/p hemicolectomy and chemo Ostomy pulldown in 2013 No e/o active disease. CEA from 07/26 < .1 Cont annual CEAs and q5h colonoscopy Assessment & Plan (06/06/2017 11:20 AM CHAR CONVEYOR TENDER CELLAR): Addressed 5 years ago. No e/o active disease. 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 Neuropathy 06/11/2014 07/02/2020 Overview (04/24/2018): Neuropathy Assessment & Plan (02/15/2018 10:54 AM CHAR CONVEYOR TENDER CELLAR): Since last seen, lyrica has been added to cymbalta and she has noticed some degree of improvement in dysesthesias, but disequilibrium and impaired sensation persist. Assessment & Plan (06/06/2017 11:21 AM CHAR CONVEYOR TENDER CELLAR): Chemo-induced Cont duloxetine and gabapentin(has titrated to qid dosing of 300mg) Add alpha lipoic acid for synergy Consider increasing gabapentin based on response metanx is a consideration as well. Hyperlipidemia 06/11/2014 07/02/2020 Overview (07/15/2016): HLD - Hyperlipidemia Lung mass 03/04/2014 07/02/2020 Benign essential hypertension 12/23/2013 07/02/2020 Overview (07/15/2016): Benign essential hypertension Assessment & Plan (04/16/2019 3:47 PM CHAR CONVEYOR TENDER CELLAR): At goal on lisinopril and HCTZ Cont [...] drink = 0.6 oz pur e alcohol) [facility] Utilities Answer Date Recorded In the past 12 months has th [employer], gas, oil, or water company threatened to [...] often do you attend chur ch or catholic services? 1 to 4 times per year 07/22/2024 Do you belong to any clubs o r organizations such as sikh groups, unions, fraternal or athletic groups, or [...] you have a drink containing alcohol? Never 08/15/2024 Q2: How many drinks containi ng alcohol do you have on a typical day when you are drinking? Patient does not drink Q3: How often do you have si x or more drinks on one occasion? Never 08/15/2024 Overall Financial Resource Strain (CARDIA) Answe r [...] any time in the past 12 m [facility], were you homeless or living in a long-term (including now)? No 07/22/2024 Personal Safety Answer Date Recorded Have you ever been in or are you currently in a harmful physical or emotional relationship or is someone making you feel afraid or unsafe? Denies 08/15/2024 Comments No Sex and Gender Information Value Date Recorded Sex Assigned at Not on file Legal Sex Female 11:27 AM CHAR CONVEYOR TENDER CELLAR Gender Identity Not on file Sexual Orientation Straight 09/24/2018 10 :04 PM CDT Last Filed Vital Signs Vital Sign Reading Time Taken Comments Blood Pressure 136/80 08/21/2024 9:46 AM CDT Pulse 59 08/21/2024 9:46 AM CDT Temperature 36.7 C (98.1 F) 08/21/2024 9:46 AM CDT Respiratory Rate 20 08/15/2024 10:55 AM CDT Oxygen Saturation 97% 08/15/2024 10:55 AM CDT Inhaled Oxygen Concentration - - Weight 120.2 kg (265 lb) 08/21/2024 9:46 AM CDT Height 175.3 cm (5' 9 ) 08/21/2024 9:46 AM CDT Body Mass Index 39.13 08/21/2024 9:46 AM CDT Plan of Treatment Not on file Goals Goal Patient Goal Type Associated Problems Recent Progress Patient-Stated? Author CCM Chronic Pain Care Plan Chronic Care Management Yovany Aldana RN Note: Problem: Chronic Pain Goals: 1. Minimize further functional decline 2. Maximize quality of life 3. Control pain Strategies: - Activity/exercise program recommendation - Conservative stepwise pain medicine strategy with multi-disciplinary approach - Recommend healthy lifestyle strategies and compensatory methods as needed Medical Devices Implanted Type Area Seals Engraver Device Identifier Shelf Expiration Date Model / Serial / Lot [employer]/C R Bard [address] Sepra Sorbaflex 4.5in [place] Open Bioresorbable Self [id number] - [id number] Implanted:Qty: 1 on 08/01/2024 by Doug Bains MD at [facility] Mesh N/A: Abdomen [employer]/C R Bard 12/05/2025 [id number] / / [id number] [employer] PastBook Stent Ureteral Set Double Pigtail Tapered Tip Contour [id number] Hydroplus Coated [id number] - [id number] Implanted:Qty: 1 on 08/15/2024 by Naif Peguero MD at [facility] [employer]ran[employer] beauty supply 02/28/2027 [id number] / / [id number] Procedures Procedure Name Priority Date/Time Associated Diagnosis Comments SURGICAL PATHOLOGY Routine 08/15/2024 11 :26 AM CDT Calculus of kidney FL RETRO PYELO (IN OR) IP Routine 9:21 AM CDT STONE ANALYSIS Routine 08/15/2024 9:03 AM CDT DE AN ELECTIVE SUPRAGLOTTIC AIRWAY Routine 08/15/2024 8:36 AM CDT URETEROSCOPY 08/15/2024 8:20 AM CDT Calculus of kidney POTASSIUM, WHOLE BLOOD STAT 05/08/202 5 7:29 AM CDT DE AN PROCEDURE PLACEHOLDER Routine 08/01/2024 11:14 AM CDT DE AN ELECTIVE ENDOTRACHEAL AIRWAY Routine 08/01/2024 11:14 [...] DOPPLER/CF W CONTRAST Routine 06/05/2024 11:49 AM CHAR CONVEYOR TENDER CELLAR Dyspnea on exertion EGFR Routine 05/31/2024 2:29 PM CHAR CONVEYOR TENDER CELLAR PHOSPHORUS STAT 05/31/2024 2:29 PM CHAR CONVEYOR TENDER CELLAR MAGNESIUM STAT 05/31/2024 2:29 PM CHAR CONVEYOR TENDER CELLAR COMPREHENSIVE METABOLIC PANEL Routine 05/31/2024 2:29 PM CHAR CONVEYOR TENDER CELLAR CBC WITHOUT DIFFERENTIAL STAT 05/31/2024 2:29 PM CHAR CONVEYOR TENDER CELLAR XR ABDOMEN AP 1 VIEW ED Urgent/IP Urgent 05/31/2024 9:45 AM CHAR CONVEYOR TENDER CELLAR SCREENING MAMMOGRAM BILATERAL W TRAY Schedule Routine, Read Routine (OP Routine) 12/06/2023 2:57 PM CDT Screening mammogram, encounter for COLONOSCOPY 09/22/2022 10:02 AM CDT HEPATITIS C ANTIBODY Routine 07/02/2020 10:36 AM CDT Encounter for hepatitis C screening test for low risk patient from Last 3 Months or Most Recently Relevant to Health Maintenance Results * Surgical pathology (08/15/2024 11:26 AM CDT) Tissue (Calculus/calculi /stone, gross and Chemical Analysis) 08/15/2024 9:00 AM CDT Narrative PATHOLOGY [facility] - 08/16/2024 11:08 AM CDT EPIC results best viewed via link to PDF [facility] Department of Pathology [address] [place] [address] Note to Patients: This report may contain a detailed description of human tissue sent by a health care provider to the laboratory for pathologic evaluation. The content of this report is essential for diagnosis and may provide important critical findings. This information may be unfamiliar to patients to review without a medical professional present. It is advised that the patient review this report in the presence of a health care provider who can answer questions and explain the details. Final Report Patient Name: LINSEY ARNOLD Address: [address] [place], [place] [address] Gender: F : 1960 (Age: 64) Service: Surgery Location: [facility]END[facility] Hospital #: [id number] Patient Type: [facility] Taken: 08/15/2024 Received: 08/15/2024 Accessioned: 08/15/2024 Reported: 08/16/2024 Physician(s):Naif Peguero M.D. Diagnosis: Kidney, right: - Calculi (gross examination only). - Submitted to [facility] for chemical analysis. Jaiden uRiz MD Report Electronically Reviewed and Signed Out By Jaiden Ruiz MD 08/16/2024 11:08:13 Specimen(s) Received: A: Right kidney stone Clinical History: Calculus of kidney. Right ureteroscopy laser lithotripsy with stent placement. Gross Description: The specimen is submitted in a single container labeled LINSEY ARNOLD and right kidney stone . It is 3 davenport brown granular stones between 1 and 2 mm. The specimen is entirely submitted to [facility] for chemical analysis. When the [facility] report has been finalized, it will be available in the laboratory section of Epic. If Epic is not available, please call the Department of Pathology at [facility] ([phone]) to obtain a copy of the report. Darlin Bond R.N., Miguel./Juli Tadeo M.D. REPORT IMAGES AND SCANNED DOCUMENTS, IF INCLUDED, ONLY VIEWABLE IN PDF VERSION OF REPORT The performance characteristics of some immunohistochemical stains, fluorescence in-situ hybridization tests and immunophenotyping by flow cytometry cited in this report (if any) were determined by the Surgical Pathology Department at [facility] as part of an ongoing supervisor vendor quality program and in compliance with federally mandated regulations drawn from the Clinical Laboratory Improvement Act of 1988 (CLIA '88). Some of these tests rely on the use of analyte specific reagents and are subject to specific labeling requirements by the US Food and Drug Administration. Such diagnostic tests may only be performed in a facility that is certified by the Department of Health and Human Services as a high complexity laboratory under CLIA '88. The FDA has determined that such clearance or approval is not necessary. This test is used for clinical purposes. It should not be regarded as investigational or for research. Nevertheless, federal rules concerning the medical use of analyte specific reagents require that the following disclaimer be attached to the report: This test was developed and its performance characteristics determined by the Surgical Pathology Department [facility]. It has not been cleared or approved by the U. S. Food and Drug Administration. Note for decalcified specimens: This assay has not been validated on decalcified tissues. Results should be interpreted with caution given the possibility of false negativity on decalcified specimens Naif Peguero MD LAB PATHOLOGY ORDERA BLES Final Result PATHOLOGY FOR[facility]LY [facility] ([place]) [address] [place] [address] * FL Retro Pyelo (In Or) (08/15/2024 9:21 AM CDT) Anatomical Region Laterality Modality Body N/A Radio Fluoroscop y 08/26/2024 11:1 4 AM CDT Narrative 08/26/2024 11:16 AM CDT EXAM DESCRIPTION: FL RETRO PYELO (IN OR) HISTORY: kidney stone COMPARISON: 05/30/2024 RADIATION DOSE: Dose: Total fluoroscopy time 0.2 minutes. Dose area product 492.29 Reference air kerma 8.8. Submitted images-4 Views-1 FINDINGS: Intraoperative images demonstrate contrast within the right renal pelvis with guidewire placement. Final image demonstrates double pigtail stent placement in appropriate position. IMPRESSION: Placement of a double-J ureteral stent overlying the right ureter. Please see operative summary for full report. THIS IS AN ELECTRONICALLY VERIFIED FINAL REPORT 08/26/2024 11:16 AM - Electronically signed by Teodoro Lassiter M.D. RB: LORENZO Report ID: [id number] Reading Location: [place] [address] Procedure Note Teodoro Lassiter MD - 08/26/2024 EXAM DESCRIPTION: FL RETRO PYELO (IN OR) HISTORY: kidney stone COMPARISON: 05/30/2024 RADIATION DOSE: Dose: Total fluoroscopy time 0.2 minutes. Dose area product 492.29 Reference air kerma 8.8. Submitted images-4 Views-1 FINDINGS: Intraoperative images demonstrate contrast within the right renal pelvis with guidewire placement. Final image demonstrates double pigtail stent placement in appropriate position. IMPRESSION: Placement of a double-J ureteral stent overlying the right ureter.Please see operative summary for full report. THIS IS AN ELECTRONICALLY VERIFIED FINAL REPORT 08/26/2024 11:16 AM - Electronically signed by Teodoro Lassiter M.D. RB: RB Report ID: [id number] Reading Location: [place] [address] Naif Peguero MD IM FLUOROSCOPY PROC EDURES Final Result * Stone analysis (08/15/2024 9:03 AM CDT) Pathologist [facility] Stone analysis Not Reported [facility] Comment:Testing performed by : [facility], [address] [place] [address], [place]., [address] Source, Kid Stone Right Kidney [facility] ([place]) Comment:Testing performed by : [facility], [address] [place] [address]., [id number] Interp, Kid stone analysis See Footnote [facility] ([place]) Comment: 80% Calcium oxalate monohydrate. 10% Calcium oxalate dihydrate. 10% Uric acid. Testing performed by: [facility], [address] [place] [address]., [id number] COMMENT See Footnote [facility] ([place]) Comment: For stones containing calcium oxalate, calcium phosphate, and/or uric acid, a 24 hr urinary supersaturation test may help detect underlying risk factors for this type of stone formation and provide guidance for a stone prevention strategy. ADDITIONAL INFORMATION This test was developed and its performance characteristics determined by [facility] in a manner consistent with CLIA requirements. This test has not been cleared or approved by the U.S. Food and Drug Administration. Test Performed by: [facility] [address] [place] [address] Curtain Drier: Nasrin Charles Ph.D.; CLIA# [id number] Testing performed by: [facility], [address] [place] [address]., [address] Stone 08/15/2024 9:03 AM CDT 08/19/2024 12:57 PM CDT Narrative [facility] ([place]) - 08/24/2024 10:27 AM CDT right kidney stone Naif Peguero MD LAB URINE ORDERABLES Final Result [facility] ([place]) [address] [facility] Department [place] [address] [facility] * DE AN ELECTIVE SUPRAGLOTTIC AIRWAY (08/15/2024 8:36 AM CDT) Narrative Breann Iraheta CRNA - 08/15/2024 8:36 AM CDT Breann Iraheta CRNA 08/15/2024 8:36 AM Airway Patient location: OR Urgency: elective Date/time: 08/15/2024 8:26 AM Indications for airway management: anesthesia Difficult airway: no Staff: Placed by: [employer]: Breann Iraheta CRNA Emergent airway documentation: Risks and benefits discussed: yes Consent obtained: yes Consent given by: patient Airway prep: Preoxygenated: yes Patient position: sniffing Mask difficulty assessment: 0 - not attempted Spontaneous ventilation during airway: absent Sedation level during airway: GA Final airway details: Final airway type: supraglottic airway Final supraglottic airway: unique SGA size: 4 Number of attempts: 1 us Gurpreet Can MD ANESTHESIA ORDERABLES Final Result * Potassium, whole blood (08/15/2024 7:29 AM CDT) Potassium, bld 4.3 3.3 - 4.9 mmol/L Comment: Interpretive Data This method is not able to assess for hemolysis, which may falsely increase potassium concentrations. If further testing is needed to evaluate this result, consider in-laboratory plasma potassium. Current Interpretive Data was last revised on 2021. Blood 08/15/2024 7:29 AM CDT 08/15/2024 7:31 AM CDT us Jose Kaur MD LAB BLOOD ORDERABLES Fin al Result Performing Organization Address City/State/[facility] Co de Phone Number [facility] [place]) [address] [facility] Department [place] [address] * DE AN ELECTIVE ENDOTRACHEAL AIRWAY, DE AN PROCEDURE PLACEHOLDER (08/01/2024 11:14 AM CDT) Narrative Lane Bowser CRNA - 08/01/2024 11:[address] CRNA 08/01/2024 11:14 AM Airway Patient location: OR Urgency: elective Indications for airway management: anesthesia Difficult airway: no Staff: Supervising provider: Asad Beth MD Placed by: W[employer] SCIENCE [employer] PLANNING: Lane Bowser CRNA Emergent airway documentation: Risks [...] from the original result were not included. [facility] Cardiology [address] [place] [address], [id number], [facility] Left Heart Catheterization Procedure Report 64 y.o. [...] and draped in sterile fashion. A 6 Sinhala sheath was inserted in the Right Radial [...] Clear Clear [facility] Specific gravity, ur 1.045(H) 1.003 - 1.030 [facility] pH, urine 5.5 [facility] Comment: Interpretive Data U rine pH is affected by diet, medications, systemic acid-base disturbances, and renal tubular function. pH may affect urinary stone formation. For example, urine pH below 6.0 may help reduce the tendency for calcium phosphate stones and pH greater than 6.0 may reduce the tendency for uric acid stone formation. Source: [facility] Current Interpretive Data was last revised on 2017 Protein, ur ql Trace Negative [facility] Glucose, ur ql Negative Negative [facility] Ketones, ur Negative Negative [facility] Bilirubin, ur Negative Negative [facility] Blood, ur Negative Negative [facility] Urobilinogen, ur <2.0 <2.0 mg/dL [facility] Nitrite, ur Negative Negative [facility] Leukocyte esterase, ur Negative Negative [facility] UA reflex comment Reflex conditions for microscopic UA and culture not met. [facility] Urine, clean voided 07/20/2024 10:24 AM CDT 07/20/2024 10:31 AM CDT us Kim Schaefer MD LAB MICROBIOLOGY - GENERAL ORD ERABLES Final Result [facility] [address] Department [place] [address] * eGFR (07/20/2024 5:43 AM CDT) Pathologist [facility] eGFR 66 >=60 mL/min/1. 73 m2 Comment: [...] Resul t [facility] [address] Department [place] [address] * (ABNORMAL) CBC without differential (07/20/2024 5:43 AM CDT) [facility] WBC 4.84 3.80 - 9.90 K/cumm Hgb 11.7(L) 11.9 - 15.5 g/dL [facility] Hct 38.6 35.6 - 45.5 % [facility] Plt 211 150 - 400 K/cumm [facility] MPV 11.0 9.1 - 12.3 fL [facility] RBC 4.11 3.90 - 5.20 M/cumm [facility] MCV 93.9 81.3 - 96.4 fL [facility] MCH 28.5 27.1 - 33.3 pg [facility] MCHC 30.3(L) 32.3 - 35.7 g/dL [facility] RDW CV 14.6 11.1 - 14.9 % [facility] RDW SD 50.5(H) 35.7 - 48.1 fL [facility] NRBC abs 0.00 0.00 - 0.01 K/cumm [facility] Blood 07/20/2024 5:43 AM CDT 07/20/2024 6:40 AM CDT us Shmuel Knox MD LAB BLOOD ORDERABLES Final Resul t Performing Organization Address City/[facility]/ZIP Co de Phone Number [facility] [address] [facility] [place] [address] * Phosphorus (07/20/2024 5:43 AM CDT) Phosphorus, pl 4.2 2.3 - 4.5 mg/dL Blood 07/20/2024 5:43 AM CDT 07/20/2024 6:45 AM CDT Shmuel Knox MD LAB BLOOD ORDERABLES Final Resul t Performing Organization Address [facility] Co de Phone Number [facility] [address] Department [facility] [place] [address] * Magnesium (07/20/2024 5:43 AM CDT) Magnesium 2.0 1.4 - 2.5 mg/dL Blood 07/20/2024 5:43 AM CDT 07/20/2024 6:45 AM CDT us Shmuel Knox MD LAB BLOOD ORDERABLES Final Resul t Performing Organization Address City/[facility] Co de Phone Number [facility] [address] Department [facility] [place] [address] * Basic metabolic panel (07/20/2024 5:43 AM CDT) Sodium 143 135 - 145 mmol/L Potassium, pl 4.1 3.3 - 4.9 mmol/L [facility] Chloride 106 97 - 110 mmol/L [facility] CO2 27 22 - 32 mmol/L [facility] Anion gap 10 2 - 15 mmol/L [facility] BUN 18 6 - 25 mg/dL [facility] Creatinine 0.96 0.60 - 1.10 mg/dL [facility] Glucose 124 70 - 199 mg/dL [facility] Comment: Interpretive Data Fasting glucose >/= 126 [...] 10.3 mg/dL [facility] Blood 07/20/2024 5:43 AM CDT 07/20/2024 6:45 AM CDT us Shmuel Knox MD LAB BLOOD ORDERABLES Final Resul t [facility] [address] Department of Laboratories [place], [place] [id number] * Troponin T high-sensitivity 6-hour (07/20/2024 2:19 AM CDT) Pathologist [facility] Trop T hs 13 <=14 ng/L Comment: Interpretive Data For further hscTnT resources including the diagnostic algorithm and an aid in interpretation, copy and paste this link: https://nrl.testcatalog.org/show/hsTrop Current Interpretive Data last revised 2020. Trop T hs delta -2 ng/L [facility] Trop T hs interp Insignificant [facility] Blood 07/20/2024 2:19 AM CDT 07/20/2024 2:34 AM CDT Jennifer Esquivel MD LAB BLOOD ORDERABLES Final Result Performing Organization Address [facility] Co de Phone Number [facility] [address] Department [place] [address] * Troponin T high-sensitivity 2-hour (07/19/2024 11:17 PM CDT) Trop T hs 14 <=14 ng/L Comment: Interpretive Data For further hscTnT resources including the diagnostic algorithm and an aid in interpretation, copy and paste this link: https://nrl.testcatalog.org/show/hsTrop Current Interpretive Data last revised 2020. Trop T hs delta -1 ng/L [facility] Trop T hs interp Insignificant [facility] Blood 07/19/2024 11:1 7 PM CDT 07/19/2024 11:32 PM CDT Jennifer Esquivel MD LAB BLOOD ORDERABLES Final Result Performing Organization Address [facility] Co de Phone Number [facility] [address] Department [facility] [place] [address] * XR Chest PA Lateral 2 Views [...] 4hr, 6hr) (07/19/2024 8:33 PM CDT) Pathologist [facility] Trop T hs 15(H) <=14 ng/L Comment: Interpretive Data For further hscTnT resources including the diagnostic algorithm and an aid in interpretation, copy and paste this link: https://nrl.testcatalog.org/show/hsTrop Current Interpretive Data last revised 2020. Blood 07/19/2024 8:33 PM CDT 07/19/2024 8:50 PM CDT us Jennifer Esquivel MD LAB BLOOD ORDERABLES Final Result [facility] [address] Department [place] [address] * eGFR (07/19/2024 8:33 PM CDT) Pathologist [facility] eGFR 77 >=60 mL/min/1. 73 m2 Comment: [...] Final Result [facility] [address] Department [place] [address] * Differential, auto (07/19/2024 8:33 PM CDT) Neutrophil abs 4.11 1.50 - 6.50 K/cumm Imm gran abs 0.02 0.00 - 0.10 K/cumm [facility] Lymphocyte abs 1.21 0.80 - 3.30 K/cumm [facility] Monocyte abs 0.48 0.20 - 0.80 K/cumm [facility] Eosinophil abs 0.18 0.00 - 0.50 K/cumm [facility] Basophil abs 0.03 0.00 - 0.10 K/cumm [facility] Neutrophil pct 68.1 % [facility] Comment: Interpretive Data Percent cell count reference ranges are not reported, since discordance with absolute values may lead to misinterpretation of CBC data. Current Interpretive Data was last revised on 2017. Imm gran pct 0.3 % [facility] Comment: Interpretive Data Percent cell count reference ranges are not reported, since discordance with absolute values may lead to misinterpretation of CBC data. Current Interpretive Data was last revised on 2017. Lymphocyte pct 20.1 % [facility] Comment: Interpretive Data Percent cell count reference ranges are not reported, since discordance with absolute values may lead to misinterpretation of CBC data. Current Interpretive Data was last revised on 2017. Monocyte pct 8.0 % [facility] Comment: Interpretive Data Percent cell count reference ranges are not reported, since discordance with absolute values may lead to misinterpretation of CBC data. Current Interpretive Data was last revised on 2017. Eosinophil pct 3.0 % [facility] Comment: Interpretive Data Percent cell count reference ranges are not reported, since discordance with absolute values may lead to misinterpretation of CBC data. Current Interpretive Data was last revised on 2017. Basophil pct 0.5 % [facility] Comment: Interpretive Data Percent cell count reference ranges are not reported, since discordance with absolute values may lead to misinterpretation of CBC data. Current Interpretive Data was last revised on 2017. Blood 07/19/2024 8:33 PM CDT 07/19/2024 8:50 PM CDT us Jennifer Esquivel MD LAB BLOOD ORDERABLES Final Result [facility] [address] Department [place] [address] * Pro B-type natriuretic peptide (07/19/2024 8:33 [...] Final Result [facility] [address] Department [place] [address] * (ABNORMAL) CBC with auto differential (07/19/2024 8:33 PM CDT) [facility] WBC 6.03 3.80 - 9.90 K/cumm Hgb 12.4 11.9 - 15.5 g/dL [facility] Hct 39.0 35.6 - 45.5 % [facility] Plt 248 150 - 400 K/cumm [facility] MPV 10.9 9.1 - 12.3 fL [facility] RBC 4.31 3.90 - 5.20 M/cumm [facility] MCV 90.5 81.3 - 96.4 fL [facility] MCH 28.8 27.1 - 33.3 pg [facility] MCHC 31.8(L) 32.3 - 35.7 g/dL [facility] RDW CV 14.4 11.1 - 14.9 % [facility] RDW SD 48.0 35.7 - 48.1 fL [facility] NRBC abs 0.00 0.00 - 0.01 K/cumm [facility] Blood 07/19/2024 8:33 PM CDT 07/19/2024 8:50 PM CDT us Jennifer Esquivel MD LAB BLOOD ORDERABLES Final Result [facility] [address] Department [place] [address] * (ABNORMAL) Comprehensive metabolic panel (07/19/2024 8:33 PM CDT) Sodium 143 135 - 145 mmol/L Potassium, pl 4.2 3.3 - 4.9 mmol/L [facility] Comment:Hemolyzed; potassium value may be falsely elevated by as much as 0.3 - 0.5 mmol/L. Suggest redraw and reanalysis Chloride 106 97 - 110 mmol/L [facility] CO2 23 22 - 32 mmol/L [facility] Anion gap 14 2 - 15 mmol/L [facility] BUN 17 6 - 25 mg/dL [facility] Creatinine 0.84 0.60 - 1.10 mg/dL [facility] Glucose 131 70 - 199 mg/dL [facility] Comment: Interpretive Data Fasting glucose >/= 126 [...] 10.3 mg/dL [facility] Bilirubin, total 0.4 0.1 - 1.2 mg/dL [facility] Protein, pl 6.7 6.5 - 8.5 g/dL [facility] Albumin 4.1 3.5 - 5.0 g/dL [facility] Alk phos 87 40 - 130 Units/L [facility] ALT 30 7 - 45 Units/L [facility] AST 56(H) 10 - 45 Units/L [facility] Comment:Slightly Hemolyzed S pecimen Blood 07/19/2024 8:33 PM CDT 07/19/2024 8:50 PM CDT Jennifer Esquivel MD LAB BLOOD ORDERABLES Final Result Performing Organization Address City/[facility] Co de Phone Number [facility] [address] Department [place] [address] * ECG 12 lead (07/19/2024 8:24 PM CDT) 07/19/2024 8:24 PM CDT Narrative [facility] - 07/21/2024 3:20 PM CDT Vent Rate: 65 bpm RR Interval: 919 msec DE Interval: 165 msec QRS Duration: 97 msec QT Interval: 405 msec QTC Interval: 416 msec P-R-T [place]: 49 - -11 - 47 degrees IMPRESSION: SINUS RHYTHM NORMAL ECG Electronically Signed By: Lucien Lennon MD Chris Danielle MD ECG ORDERABLES Final Result Performing Organization Address [facility] de Phone Number [facility] [employer] [facility] * CTA Heart and Coronary Arteries [...] AM CDT Narrative 07/19/2024 2:03 PM CDT [facility] Cardiac [place] [address] Transthoracic Echocardiographic Report Patient Name: LINSEY ARNOLD S : 1960 (64y 5m) Gender: F Study Date: 07/19/2024 11:33:36 AM Ht(Inch): 67 Wt(Lb): 283.29 BSA: 2.46 Broadcast Operations Director: ELAN Location: [facility] Order Provider: ORTIZ MCKEE Heart [...] LA Length 2C 5.53 cm AI Decel [place] 1.57 m/s2 LA Volume BP 75.94 ml [...] Procedure Note Todd Pruitt MD - 07/19/2024 [facility] Cardiac [place] [address] Transthoracic Echocardiographic Report Patient Name: LINSEY ARNOLD S : 1960 (64y 5m) Gender: F Study Date: 07/19/2024 11:33:36 AM Ht(Inch): 67 Wt(Lb): 283.29 BSA: 2.46 Broadcast Operations Director: ELAN Location: [facility] Order Provider: JESEORTIZ Heart Rate: 66 BMI: 44.36 BP: 174 [...] LA Length 4C 6.06 cm AI Decel Dduk2020.90 sec LA Length 2C 5.53 cm AI Decel [place]1.57 m/s2 LA Volume BP 75.94 ml AI PUS336.42 msec LA Volume Index 30.87 ml/m2 [ 16.00 - 34.00 ] MV E Peak Vel0.8 m/s [ 0.6 - 1.3 ] RV Base Dimen 2D 3.1 cm [ 2.5 - 4.2 ] MV A Peak Vel0.9 m/s [ 1.0 - 1.2 ] RA Volume 35.34 ml MV E/A0.8 ratio [ 0.8 - 1.5 ] RA Volume Index 14.37 ml/m2 MV Decel Uigv972.73 msec [ 104.00 - 258.00 ] AoR [...] 0.6 - 1.3 mg/dL POC Device Number [id number] [facility] POC Performer [id number] [facility] Blood 07/19/2024 12:2 4 PM CDT 07/19/2024 12:24 PM CDT us Aileen Savage THERAPY SITE COORDINATOR LAB BLOOD ORDERABLES Final R esult [facility] [address] [address] Department [place] [address] * STRESS ECHO PHARMACOLOGIC W DOPPLER/CF W CONTRAST (06/05/2024 11:49 AM CHAR CONVEYOR TENDER CELLAR) Anatomical Region Laterality Modality Ultrasound, Nucl ear Medicine 06/05/2024 11:1 4 AM CHAR CONVEYOR TENDER CELLAR Narrative 06/05/2024 1:03 PM CHAR CONVEYOR TENDER CELLAR [address] [address] Dobutamine Stress Echocardiogram Report Patient Name: LINSEY ARNOLD : 1960 Study Date: 06/05/2024 11:14:08 AM Gender: F Tech: THERAPY SITE COORDINATOR Ref Provider: LUCIEN PELLETIER Height(Cm): 173 BSA: [...] By: Dr Teodoro Holley 06/05/2024 1:02:34 PM CHAR CONVEYOR TENDER CELLAR Procedure Note Teodoro Holley MD - 06/05/[address] [address] Dobutamine Stress Echocardiogram Report Patient Name: LINSEY ARNOLD : 1960 Study Date: 06/05/2024 11:14:08 AM Gender: F Tech: THERAPY SITE COORDINATOR Ref Provider: LUCIEN PELLETIER Height(Cm): 173 BSA: Weight(Kg): 113.4 Quality: Good Order Provider: LUCIEN PELLETIRE PROCEDURES: Dobutamine Stress Echo Report: Dobutamine stress [...] regards to heart rate with the patient [id number]% of predicted maximum heart rate. No exercise induced chest pain. No Echocardiographic evidence of ischemia. However, patient had [address] segment depressioninferolaterally. Consider cardiology consultation if clinically indicated. Electronically Signed By: Dr Teodoro Holley 06/05/2024 1:02:34 PM CHAR CONVEYOR TENDER CELLAR us Lucien Pelletier MD CV ECHO PROCEDURES Final Result * eGFR (05/31/2024 2:29 PM CHAR CONVEYOR TENDER CELLAR) eGFR 82 >=60 mL/min/1. 73 m2 Comment: [...] last reviewed 2021. Blood 05/31/2024 2:29 PM CHAR CONVEYOR TENDER CELLAR 05/31/2024 2:32 PM CHAR CONVEYOR TENDER CELLAR us Karol Dexter NP LAB BLOOD ORDERABLES Final Resul t [facility] [address] [facility]. [employer] [facility] [place] [address] * (ABNORMAL) CBC without differential (05/31/2024 2:29 PM CHAR CONVEYOR TENDER CELLAR) Pathologist [facility] WBC 5.2 3.8 - 9.9 K/cumm Hgb 13.6 11.9 - 15.5 g/dL [facility] Hct 43.5 35.6 - 45.5 % [facility] Plt 245 150 - 400 K/cumm [facility] MPV 10.4 9.1 - 12.3 fL [facility] RBC 4.72 3.90 - 5.20 M/cumm [facility] MCV 92.2 81.3 - 96.4 fL [facility] MCH 28.8 27.1 - 33.3 pg [facility] MCHC 31.3(L) 32.3 - 35.7 g/dL [facility] RDW CV 14.7 11.1 - 14.9 % [facility] RDW SD 49.8(H) 35.7 - 48.1 fL [facility] NRBC abs 0.00 0.00 - 0.01 K/cumm [facility] Blood 05/31/2024 2:29 PM CHAR CONVEYOR TENDER CELLAR 05/31/2024 2:32 PM CHAR CONVEYOR TENDER CELLAR Karol Dexter NP LAB BLOOD ORDERABLES Final Resul t Performing Organization Address [facility] de Phone Number [facility] [address] [facility] [employer] [place], [place] [id number] * Phosphorus (05/31/2024 2:29 PM CHAR CONVEYOR TENDER CELLAR) Pathologist [facility] Phosphorus, pl 2.5 2.3 - 4.5 mg/dL Blood 05/31/2024 2:29 PM CHAR CONVEYOR TENDER CELLAR 05/31/2024 2:32 PM CHAR CONVEYOR TENDER CELLAR Karol Dexter NP LAB BLOOD ORDERABLES Final Resul t Performing Organization Address [facility] de Phone Number [facility] [address] [facility] [place] [address] * Magnesium (05/31/2024 2:29 PM CHAR CONVEYOR TENDER CELLAR) Magnesium 2.0 1.4 - 2.5 mg/dL Comment: Reference Data. Reference values for Labor and Delivery patients: < or = 0.7 mg/dL to > or = 7.3 mg/dL Current reference data last reviewd on 01/07/2015. Blood 05/31/2024 2:29 PM CHAR CONVEYOR TENDER CELLAR 05/31/2024 2:32 PM CHAR CONVEYOR TENDER CELLAR us Karol Dexter NP LAB BLOOD ORDERABLES Final Resul t [facility] [address] [facility]. Department of [facility] [place] [address] * (ABNORMAL) Comprehensive metabolic panel (05/31/2024 2:29 PM CHAR CONVEYOR TENDER CELLAR) Sodium 137 135 - 145 mmol/L Potassium, pl 3.7 3.3 - 4.9 mmol/L [facility] Chloride 99 97 - 110 mmol/L [facility] CO2 26 22 - 32 mmol/L [facility] Anion gap 12 2 - 15 mmol/L [facility] BUN 22 6 - 25 mg/dL [facility] Creatinine 0.80 0.60 - 1.10 mg/dL [facility] Glucose 118 70 - 199 mg/dL [facility] Comment: Interpretive Data Fasting glucose >/= 126 [...] Calcium 9.2 8.5 - 10.3 mg/dL [facility] Bilirubin, total 0.9 0.1 - 1.2 mg/dL [facility] Protein, pl 6.9 6.5 - 8.5 g/dL [facility] Albumin 4.0 3.5 - 5.0 g/dL [facility] Alk phos 74 40 - 130 Units/L [facility] ALT 34 7 - 45 Units/L [facility] AST 55(H) 10 - 45 Units/L [facility] Blood 05/31/2024 2:29 PM CHAR CONVEYOR TENDER CELLAR 05/31/2024 2:32 PM CHAR CONVEYOR TENDER CELLAR us Karol Dexter NP LAB BLOOD ORDERABLES Final Resul t [facility] [address] [place] [employer]. Department [place] [address] * XR Abdomen 1 View AP (05/31/2024 9:45 AM CHAR CONVEYOR TENDER CELLAR) Anatomical Region Laterality Modality Body, Abdomen N/A Computed Radiogr aphy 05/31/2024 10:2 8 AM CHAR CONVEYOR TENDER CELLAR Narrative 05/31/2024 10:35 AM CHAR CONVEYOR TENDER CELLAR EXAM DESCRIPTION: XR ABDOMEN AP 1 VIEW [...] lower quadrant has increased compared to the fermentation manager radiograph obtained on CT yesterday. There is [...] of distension does appear greater than on fermentation manager image from CT scan performed yesterday, suggesting [...] Electronically signed by Rae Reynolds M.D. TW: JAMES Report ID: [id number] Reading Location: [id number] Procedure Note Rae Reynolds MD - 05/31/2024 [...] left lower quadrant has increased compared tothe fermentation manager radiograph obtained on CT yesterday. There is [...] Rae Reynolds M.D. TW: TW Report ID: [id number] Reading Location: [id number] Naif Peguero MD IMG XR PROCEDURES Fi nal Result * Screening Mammogram Bilateral W Tray (12/06/2023 2:57 PM CDT) Anatomical Region Laterality Modality Breast Bilateral Mammography Narrative 12/07/2023 10:56 AM CDT Mammogram Technique: Bilateral Digital Breast Tomosynthesis, Bilateral C-view 2D Screening mammogram. Views obtained: bilateral craniocaudal and bilateral mediolateral oblique. Computer Aided Detection was performed. Mammogram Findings: The present examination has been compared to prior imaging studies performed at [facility] on 04/30/2019, at [facility] on 07/23/2020, and at [facility] on 10/19/2022. There are scattered areas of [...] compared to prior imaging studies performed at [facility] on 04/30/2019, at [facility] on 07/23/2020, and at [facility] on 10/19/2022. There are scattered areas of [...] Hooker MD - 09/22/2022 10:02 AM CDT [facility] Patient Name: Linsey Arnold Procedure Date: 09/22/2022 10:02 AM Date of : 1960 Admit Type: Outpatient Age: 62 Gender: Female Attending MD: Rich Hooker M.D. Room: [facility] ENDOSCOPY ROOM 02 Note Status: Finalized [...] The scope was passed under direct vision.The [id number] was introduced through the anusand advanced to the the cecum, identified byappendiceal orifice and ileocecal valve. The colonoscopy was performed with ease. The patient tolerated the procedure well. The quality of the bowelpreparation was excellent. The quality of the bowel preparation was evaluated using the BBPS ([place] BowelPreparation Scale) with scores of: Right Colon [...] On: 09/22/2022 10:02 AM Recognized by the [place] [employer] for promoting quality [...] last revised on 2019. Testing performed by: [facility], [address] [place] [address], [place]., [address] Blood specimen (specimen) 07/02/2020 10:36 AM CDT 07/02/2020 8:25 PM CDT Melissa Cohen NP LAB MICROBIOLOGY - GENERAL ORDERABLES Final Result Performing Organization Address City/State/ZIP Co hi Phone Number [facility] [address] [facility]. Department [place] [address] from Last 3 Months or Most Recently Relevant to Health Maintenance Insurance [employer] CHOICE MEDICARE PPO COMMERCIAL GENERIC [employer] CHOICE MEDICARE PPO Advance Directives For more information, please contact: [phone] * Full Code (Latest Code Status on [...] 2:17 AM 07/15/2022 6:50 AM Care Teams Plant Production Worker Relationship Specialty Start Date End Date Lucien Pelletier MD PCP - General 09/01/16 Fredy Guaman MD [address] [place] [address] Referring Physician Neuromuscular Medicine 12/26/17 Doug Bains MD [address] [place] [address] Consulting Physician General Surgery 08/02/24
--- OUTSIDE RECORDS SUMMARY | 2024-08-28 16:38 | XMS_ITS ---
Author Organization [facility] al Address [address] [place] [address] Care Team Providers Care Ventilation Mechanic Name Role Phone Jeremy Flores MD Primary Care Provi susan Fredy Guaman MD Unavailable [phone] Doug Bains MD Unavailable [phone] Active Problems Problem Noted Date Diagnosed Date Irreducible incisional hernia 08/01/2024 Calculus of kidney 07/26/2024 Recurrent ventral hernia 07/25/2024 Coronary artery disease invo lving yocha dehe heart with unstable angina pectoris 07/20/2024 Abnormal [...] medications. Assessment & Plan (06/12/2024 11:17 AM MAINTENANCE JOB TITLES): Refer for Cardiology consult. Hernia of abdominal wall 06/12/2024 Assessment & Plan (06/12/2024 11:19 AM MAINTENANCE JOB TITLES): After Cardiology consult we will consider referral to General surgery. Partial small bowel obstruction 05/31/2024 Assessment & Plan (06/12/2024 11:18 AM MAINTENANCE JOB TITLES): IAileen, CARD TABLE ATTENDANT have personally reviewed pertinent inpatient and/or ED records, including discharge medications and [employer] if applicable. This patient's discharge medication list has been reviewed and reconciled with her outpatient medication list and has also been reviewed with patient and/or caregiver. I have noted any changes. Resolved. Bilateral primary osteoarthritis of knee 025 Assessment & Plan (05/20/2024 4:34 PM MAINTENANCE JOB TITLES): Referral to physical therapy IFG (impaired fasting glucose) 02/09/2023 Assessment & Plan (05/20/2024 4:20 PM MAINTENANCE JOB TITLES): Lab Results Component Value Date HGBA1C 6.2 [...] consult. Assessment & Plan (06/12/2024 11:18 AM MAINTENANCE JOB TITLES): Refer for Cardiology consult. Assessment & Plan (05/20/2024 4:21 PM MAINTENANCE JOB TITLES): Exertional dyspnea without angina. Cannot exclude cardiac [...] last pap 2017, due 2020- referred to [facility] today; annual mammogram and monthly self breast [...] 11/10/2017 Assessment & Plan (05/20/2024 4:20 PM MAINTENANCE JOB TITLES): S/p XRT, LAR with ken dissection followed [...] 05/12 Assessment & Plan (06/12/2024 10:51 AM MAINTENANCE JOB TITLES): BMI Follow-up includes: nutrition counseling, exercise counseling, and education provided. Assessment & Plan (05/20/2024 3:52 PM MAINTENANCE JOB TITLES): BMI Follow-up includes: nutrition counseling, exercise counseling, and education provided. Assessment & Plan (10/18/2023 9:34 AM CDT): BMI Follow-up includes: nutrition counseling, exercise counseling, and education provided. Assessment & Plan (02/09/2023 12:40 PM CDT): BMI Follow-up includes: nutrition counseling, exercise counseling, and education provided. Assessment & Plan (04/16/2019 3:11 PM MAINTENANCE JOB TITLES): BMI Follow-up includes: nutrition counseling, exercise counseling and education provided. Assessment & Plan (02/15/2018 10:35 AM MAINTENANCE JOB TITLES): BMI Follow-up includes: nutrition counseling, exercise counseling and education provided. Assessment & Plan (06/06/2017 11:07 AM MAINTENANCE JOB TITLES): BMI Follow-up includes: nutrition counseling, exercise counseling and education provided. Nephrolithiasis 06/06/2017 Assessment & Plan (06/12/2024 11:18 AM MAINTENANCE JOB TITLES): Refer for urology consult. Assessment & Plan (05/20/2024 4:20 PM MAINTENANCE JOB TITLES): No intercurrent events She is compliant with urocit-K Assessment & Plan (04/16/2019 3:35 PM MAINTENANCE JOB TITLES): No intercurrent events She is compliant with urocit-K Assessment & Plan (02/15/2018 11:01 AM MAINTENANCE JOB TITLES): Controlled with urinary alkalization Assessment & Plan (06/06/2017 11:19 AM MAINTENANCE JOB TITLES): Uric acid and calcium oxalate S/p sheath [...] pork etoh Call for any signs of agbo bleeding from rectum, dark tarry stools, abdominal pain nausea emesis or po intolerance, Prescription sent to pharmacy we discussed at length the risk and benefits if no resolution consult GI. Assessment & Plan (04/16/2019 3:36 PM MAINTENANCE JOB TITLES): sxs remain well controlled with famotidine and dietary discretion Assessment & Plan (06/06/2017 11:22 AM MAINTENANCE JOB TITLES): Good response to H2B Reviewed dietary avoidance. 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 Assessment & Plan (06/06/2017 11:16 AM MAINTENANCE JOB TITLES): Laboratory w/u from last visit WNL Chemo-induced Reviewed behavioral compensatory techniques Assessment & Plan (04/06/2017 2:51 PM MAINTENANCE JOB TITLES): Start workup with memory labs. Essential (primary) hypertension 06/29/2016 Overview (09/02/2016): Essential hypertension Assessment & Plan (02/15/2018 10:56 AM MAINTENANCE JOB TITLES): Hypertension is stable on lisinopril/HCTZ. Continue current treatment regimen. Dietary sodium restriction. Continue current medications. Blood pressure will be reassessed at the next regular appointment. Assessment & Plan (06/06/2017 11:19 AM MAINTENANCE JOB TITLES): Hypertension is stable. Continue current treatment regimen. [...] 11/05/2015 Assessment & Plan (05/20/2024 4:26 PM MAINTENANCE JOB TITLES): Chemotherapy induced neuropathy When Linsey saw [place] [...] medication. Assessment & Plan (04/16/2019 3:43 PM MAINTENANCE JOB TITLES): She understands that these sxs will not [...] Hypertension Assessment & Plan (05/20/2024 4:14 PM MAINTENANCE JOB TITLES): Linsey is normotensive on lisinopril HCTZ Continue [...] Lifetime Dose Automatic Entry Manual Entr y Fluoro Time 0.003 minutes 0.003 minutes 0 minutes Air kerma at the reference point (Ka,r) 268.8 mGy 8 .8 mGy 260 mGy DLP 466 mGycm 466 mGycm 0 mGycm Resolved Problems Problem Noted Date Diagnosed Date Resolved Date Need for influenza vaccination 04/16/2019 06/30/2022 Hypercalciuria 09/20/2018 06/30/2022 Assessment & Plan (04/16/2019 3:37 PM MAINTENANCE JOB TITLES): HCTZ History of rectal cancer 02/06/2018 Intractable [...] 07/02/2020 Assessment & Plan (02/15/2018 10:55 AM MAINTENANCE JOB TITLES): There is chronic ankle pain with assoc'ed [...] provided. Assessment & Plan (04/06/2017 2:04 PM MAINTENANCE JOB TITLES): BMI Follow-up includes: nutrition counseling, exercise counseling and education provided. Malignant neoplasm of colon 06/11/2014 07/02/2020 Overview (07/15/2016): Colon cancer Assessment & Plan (04/16/2019 3:49 PM MAINTENANCE JOB TITLES): S/p XRT, LAR with ken dissection followed [...] colonoscopies Assessment & Plan (02/15/2018 11:05 AM MAINTENANCE JOB TITLES): S/p hemicolectomy and chemo Ostomy pulldown in 2013 No e/o active disease. CEA from 07/26 < .1 Cont annual CEAs and q5h colonoscopy Assessment & Plan (06/06/2017 11:20 AM MAINTENANCE JOB TITLES): Addressed 5 years ago. No e/o active disease. 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 Neuropathy 06/11/2014 07/02/2020 Overview (04/24/2018): Neuropathy Assessment & Plan (02/15/2018 10:54 AM MAINTENANCE JOB TITLES): Since last seen, lyrica has been added to cymbalta and she has noticed some degree of improvement in dysesthesias, but disequilibrium and impaired sensation persist. Assessment & Plan (06/06/2017 11:21 AM MAINTENANCE JOB TITLES): Chemo-induced Cont duloxetine and gabapentin(has titrated to qid dosing of 300mg) Add alpha lipoic acid for synergy Consider increasing gabapentin based on response metanx is a consideration as well. Hyperlipidemia 06/11/2014 07/02/2020 Overview (07/15/2016): HLD - Hyperlipidemia Lung mass 03/04/2014 07/02/2020 Benign essential hypertension 12/23/2013 07/02/2020 Overview (07/15/2016): Benign essential hypertension Assessment & Plan (04/16/2019 3:47 PM MAINTENANCE JOB TITLES): At goal on lisinopril and HCTZ Cont [...]
--- OUTSIDE RECORDS SUMMARY | 2024-08-28 16:39 | XMS_ITS | Encounter Summary ---
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 Gender Identity Not on file Sexual Orientation Straight 09/24/2018 10 :04 PM CDT documented as of this encounter Plan of Treatment Not on file documented as of this encounter Procedures Procedure [...] documented as of this encounter Care Teams Cokeman Relationship Specialty Start Date End Date Jeremy Flores MD PCP - General 09/01/16 Fredy Guaman MD [address] [place] [address] Referring Physician Neuromuscular Medicine 12/26/17 Doug Bains MD [address] [facility] [place] [address] Consulting Physician General Surgery 08/02/24 documented as of this encounter
--- OUTSIDE RECORDS SUMMARY | 2024-08-28 16:39 | XMS_ITS | Encounter Summary ---
Author Organization [facility] Address [address] [place] [address] Care Team Providers Care Test Car Driver Name Role Phone Jeremy Flores MD Primary Care Provi susan Fredy Guaman MD Unavailable [phone] Doug Bains MD Unavailable [phone] Encounter Details Date Type Department Care Team (Late st Contact Info) Description 06/18/2024 Telephone [facility] [address] [facility] [address] [place] [address] Darshan Lopez MD [address] [facility] [address] [place] [address] Social History Tobacco Use Types [...] on file 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 Gender Identity Not on file Sexual Orientation Straight 09/24/2018 10 :04 PM CDT documented as of this encounter Plan of Treatment Not on file documented as of this encounter Goals Goal [...] on filedocumented in this encounter Care Teams Test Car Driver Relationship Specialty Start Date End Date Jeremy Flores MD PCP - General 09/01/16 Fredy Guaman MD [address] [place] [address] Referring Physician Neuromuscular Medicine 12/26/17 Doug Bains MD [address] [facility] [address] [place] [address] Consulting Physician General Surgery 08/02/24 documented as of this encounter
--- OUTSIDE RECORDS SUMMARY | 2024-08-28 16:39 | XMS_ITS | Clinical Summary ---
Author Organization [facility] al Address [address] [place] [address] Care Team Providers Care Winding Rack Operator Name Role Phone Lucien Pelletier MD Primary Care Provi susan Fredy Guaman MD Unavailable [phone] Doug Bains MD Unavailable [phone] Allergies Active Allergy Reactions Criticality Noted [...] 1 tablet (20 mg total) by mouth machine burrer before breakfast Active aspirin 81 mg enteric [...] mg total) by mouth daily 30 tablet 08/16/19 25 025 Active rosuvastatin (CRESTOR) 20 mg [...] mg total) by mouth daily 30 tablet 11 06/19/19 25 025 Discontinued(Er ror) metoprolol XL (TOPROL-XL) 25 mg extended release tablet Take 1 tablet (25 mg total) by mouth daily 30 tablet 11 06/19/19 25 025 Discontinued(Er ror) losartan (COZAAR) 100 mg tablet Take 1 tablet (100 mg total) by mouth daily 90 tablet 3 07/11/19 25 025 Discontinued(Er ror) spironolacton e (ALDACTONE) 25 mg tablet Take 1 tablet (25 mg total) by mouth daily 30 tablet 11 07/20/19 025 Discontinued(Er ror) empagliflozin (JARDIANCE) 10 mg tabletIndicat ions:Heart Failure Take 1 tablet (10 mg total) by mouth daily 30 tablet 1 07/24/19 25 025 Discontinued(Er ror) rosuvastatin (CRESTOR) 20 mg tablet Take 1 tablet by mouth once daily 30 tablet 07/25/19 025 Discontinued(Er ror) rosuvastatin (CRESTOR) 20 mg tablet Take 1 tablet (20 mg total) by mouth nightly 025 Discontinued HYDROcodone-a cetaminophen (NORCO) 5-325 mg per tabletIndicat ions:Pain Take 1 tablet by mouth every 8 (eight) hours as needed for pain for up to 3 days 9 tablet 08/16/19 025 Active Problems Problem Noted Date Diagnosed Date Irreducible incisional hernia 08/01/2024 Calculus of kidney 07/26/2024 Recurrent ventral hernia 07/25/2024 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 Assessment & Plan (06/12/2024 11:17 AM COMMERCIAL INSURANCE UNDERWRITER): Refer for Cardiology consult. Hernia of abdominal wall 06/12/2024 Assessment & Plan (06/12/2024 11:19 AM COMMERCIAL INSURANCE UNDERWRITER): After Cardiology consult we will consider referral to General surgery. Partial small bowel obstruction 05/31/2024 Assessment & Plan (06/12/2024 11:18 AM COMMERCIAL INSURANCE UNDERWRITER): IAileen, PUTTY MIXER have personally reviewed pertinent inpatient and/or ED records, including discharge medications and Clindesk if applicable. This patient's discharge medication list has been reviewed and reconciled with her outpatient medication list and has also been reviewed with patient and/or caregiver. I have noted any changes. Resolved. Bilateral primary osteoarthritis of knee 025 Assessment & Plan (05/20/2024 4:34 PM COMMERCIAL INSURANCE UNDERWRITER): Referral to physical therapy IFG (impaired fasting glucose) 02/09/2023 Assessment & Plan (05/20/2024 4:20 PM COMMERCIAL INSURANCE UNDERWRITER): Lab Results Component Value Date HGBA1C 6.2 [...] consult. Assessment & Plan (06/12/2024 11:18 AM COMMERCIAL INSURANCE UNDERWRITER): Refer for Cardiology consult. Assessment & Plan (05/20/2024 4:21 PM COMMERCIAL INSURANCE UNDERWRITER): Exertional dyspnea without angina. Cannot exclude cardiac [...] last pap 2017, due 2020- referred to [facility] today; annual mammogram and monthly self [...] 11/10/2017 Assessment & Plan (05/20/2024 4:20 PM COMMERCIAL INSURANCE UNDERWRITER): S/p XRT, LAR with ken dissection followed [...] 05/12 Assessment & Plan (06/12/2024 10:51 AM COMMERCIAL INSURANCE UNDERWRITER): BMI Follow-up includes: nutrition counseling, exercise counseling, and education provided. Assessment & Plan (05/20/2024 3:52 PM COMMERCIAL INSURANCE UNDERWRITER): BMI Follow-up includes: nutrition counseling, exercise counseling, and education provided. Assessment & Plan (10/18/2023 9:34 AM CDT): BMI Follow-up includes: nutrition counseling, exercise counseling, and education provided. Assessment & Plan (02/09/2023 12:40 PM CDT): BMI Follow-up includes: nutrition counseling, exercise counseling, and education provided. Assessment & Plan (04/16/2019 3:11 PM COMMERCIAL INSURANCE UNDERWRITER): BMI Follow-up includes: nutrition counseling, exercise counseling and education provided. Assessment & Plan (02/15/2018 10:35 AM COMMERCIAL INSURANCE UNDERWRITER): BMI Follow-up includes: nutrition counseling, exercise counseling and education provided. Assessment & Plan (06/06/2017 11:07 AM COMMERCIAL INSURANCE UNDERWRITER): BMI Follow-up includes: nutrition counseling, exercise counseling and education provided. Nephrolithiasis 06/06/2017 Assessment & Plan (06/12/2024 11:18 AM COMMERCIAL INSURANCE UNDERWRITER): Refer for urology consult. Assessment & Plan (05/20/2024 4:20 PM COMMERCIAL INSURANCE UNDERWRITER): No intercurrent events She is compliant with urocit-K Assessment & Plan (04/16/2019 3:35 PM COMMERCIAL INSURANCE UNDERWRITER): No intercurrent events She is compliant with urocit-K Assessment & Plan (02/15/2018 11:01 AM COMMERCIAL INSURANCE UNDERWRITER): Controlled with urinary alkalization Assessment & Plan (06/06/2017 11:19 AM COMMERCIAL INSURANCE UNDERWRITER): Uric acid and calcium oxalate S/p sheath [...] GI. Assessment & Plan (04/16/2019 3:36 PM COMMERCIAL INSURANCE UNDERWRITER): sxs remain well controlled with famotidine and dietary discretion Assessment & Plan (06/06/2017 11:22 AM COMMERCIAL INSURANCE UNDERWRITER): Good response to H2B Reviewed dietary avoidance. 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 Assessment & Plan (06/06/2017 11:16 AM COMMERCIAL INSURANCE UNDERWRITER): Laboratory w/u from last visit WNL Chemo-induced Reviewed behavioral compensatory techniques Assessment & Plan (04/06/2017 2:51 PM COMMERCIAL INSURANCE UNDERWRITER): Start workup with memory labs. Essential (primary) hypertension 06/29/2016 Overview (09/02/2016): Essential hypertension Assessment & Plan (02/15/2018 10:56 AM COMMERCIAL INSURANCE UNDERWRITER): Hypertension is stable on lisinopril/HCTZ. Continue current treatment regimen. Dietary sodium restriction. Continue current medications. Blood pressure will be reassessed at the next regular appointment. Assessment & Plan (06/06/2017 11:19 AM COMMERCIAL INSURANCE UNDERWRITER): Hypertension is stable. Continue current treatment regimen. [...] 11/05/2015 Assessment & Plan (05/20/2024 4:26 PM COMMERCIAL INSURANCE UNDERWRITER): Chemotherapy induced neuropathy When Linsey saw AUSTIN [...] medication. Assessment & Plan (04/16/2019 3:43 PM COMMERCIAL INSURANCE UNDERWRITER): She understands that these sxs will not [...] Hypertension Assessment & Plan (05/20/2024 4:14 PM COMMERCIAL INSURANCE UNDERWRITER): Linsey is normotensive on lisinopril HCTZ Continue [...] 06/30/2022 Assessment & Plan (04/16/2019 3:37 PM COMMERCIAL INSURANCE UNDERWRITER): HCTZ History of rectal cancer 02/06/2018 Intractable [...] 07/02/2020 Assessment & Plan (02/15/2018 10:55 AM COMMERCIAL INSURANCE UNDERWRITER): There is chronic ankle pain with assoc'ed [...] of both ears BMI 36.0-36.9,adult 08/20/2014 02/10/20 23 Overview (07/15/2016): Body mass index (bmi) 31.0-31.9, [...] provided. Assessment & Plan (04/06/2017 2:04 PM COMMERCIAL INSURANCE UNDERWRITER): BMI Follow-up includes: nutrition counseling, exercise counseling and education provided. Malignant neoplasm of colon 06/11/2014 07/02/2020 Overview (07/15/2016): Colon cancer Assessment & Plan (04/16/2019 3:49 PM COMMERCIAL INSURANCE UNDERWRITER): S/p XRT, LAR with ken dissection followed [...] colonoscopies Assessment & Plan (02/15/2018 11:05 AM COMMERCIAL INSURANCE UNDERWRITER): S/p hemicolectomy and chemo Ostomy pulldown in 2013 No e/o active disease. CEA from 07/26 < .1 Cont annual CEAs and q5h colonoscopy Assessment & Plan (06/06/2017 11:20 AM COMMERCIAL INSURANCE UNDERWRITER): Addressed 5 years ago. No e/o active disease. 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 Neuropathy 06/11/2014 07/02/2020 Overview (04/24/2018): Neuropathy Assessment & Plan (02/15/2018 10:54 AM COMMERCIAL INSURANCE UNDERWRITER): Since last seen, lyrica has been added to cymbalta and she has noticed some degree of improvement in dysesthesias, but disequilibrium and impaired sensation persist. Assessment & Plan (06/06/2017 11:21 AM COMMERCIAL INSURANCE UNDERWRITER): Chemo-induced Cont duloxetine and gabapentin(has titrated to qid dosing of 300mg) Add alpha lipoic acid for synergy Consider increasing gabapentin based on response metanx is a consideration as well. Hyperlipidemia 06/11/2014 07/02/2020 Overview (07/15/2016): HLD - Hyperlipidemia Lung mass 03/04/2014 07/02/2020 Benign essential hypertension 12/23/2013 07/02/2020 Overview (07/15/2016): Benign essential hypertension Assessment & Plan (04/16/2019 3:47 PM COMMERCIAL INSURANCE UNDERWRITER): At goal on lisinopril and HCTZ Cont [...] Date Type Department Care Team Description 08/21/2024 9:45 AM CDT Office Visit [facility] [address] [phone] Doug Bains MD Recurrent ventral hernia (Primary Dx) 08/21/2024 ACO Clinical Pharmacist [facility] Care Organization [address] [place] [address] Lilliam Senior RPh 08/15/2024 8:30 AM CDT - 08/15/2024 9:30 AM CDT Surgery [facility] Operating Room [address] [place] [address] Naif Peguero MD Right ureteroscopy, laser lithotripsy, right stent placement, retrograde pyelogram, stone extraction 08/15/2024 8:20 AM CDT Anesthesia Event [facility] Operating [facility] [address] [place] [address] Gurpreet Can MD 08/15/2024 6:58 AM CDT - 08/15/2024 11:09 AM CDT Hospital Encounter [facility] Operating Room [address] [place] [address] Naif Peguero MD Calculus of kidney Discharge Disposition: Discharge to home or self care 08/01/2024 11:30 AM CDT - 08/01/2024 1:10 PM CDT Surgery [facility] Operating Room [address] [place] [phone] Doug Bains MD Incisional Hernia Repair with Mesh 08/01/2024 10:58 AM CDT Anesthesia Event [facility] Operating Room [address] [place] [address] [phone] Asad Beth MD Czajkowski, Lesly June, NP 08/01/2024 9:16 AM CDT - 08/02/2024 2:25 PM CDT Hospital Encounter [address] [phone] Doug Bains MD Irreducible incisional hernia (Primary Dx) Discharge Disposition: Discharge to home or self care 07/30/2024 8:45 AM CDT Pre-Admission Testing [facility] Pre Anesthesia Testing [address] [place] [phone] 07/25/2024 2:00 PM CDT Office Visit [facility] [address] [facility] [address] [place] [phone] Aileen Savage NP Dyspnea on exertion (Primary Dx); Abnormal cardiovascular stress test 07/23/2024 Telephone [facility] [address] [facility] [address] [place] [phone] Lucien Pelletier MD TEREZA Questions 07/22/2024 2:50 PM CDT - 07/22/2024 4:40 PM CDT Surgery [facility] [address] [place] [phone] Lloyd Nix MD LEFT HEART CATHETERIZATION WITH CORONARY ANGIOGRAPHY AND WITH OR WITHOUT LEFT VENTRICULOGRAM [id number] 07/20/2024 Results Follow-Up [facility] Card[facility] [address] [facility] [address] [place] [phone] Ortiz Mckee MD PhD CTA Heart and Coronary Arteries W Morphology when Performed 07/19/2024 8:56 PM CDT - 07/22/2024 6:15 PM CDT Hospital Encounter [address] [phone] Jennifer Esquivel MD Li, MD Jhoan Bocanegra Juletta, MD Sripada, Sarada, MD Coronary artery disease involving bill moore's slough heart with unstable angina pectoris, unspecified vessel or lesion type (HCC) (Primary Dx) Discharge Disposition: Discharge to home or self care 07/19/2024 11:24 AM CDT - 07/19/2024 11:59 PM CDT Hospital Encounter [facility] [address] [place] [address] Other chest pain Discharge Disposition: Discharge to home or self care 07/19/2024 11:24 AM CDT - 07/19/2024 11:59 PM CDT Hospital Encounter [facility] [address] [place] [address] Other chest pain Discharge Disposition: Discharge to home or self care 07/19/2024 Results Follow-Up [facility] [address] [place] [address] [address] [place] [address] Ortiz Mckee MD PhD Transthoracic Echo (TTE) Complete W Doppler/CF 07/17/2024 Telephone [facility] [address] [place] [address] Floridalma Duffy RN 07/10/2024 11:15 AM CDT Office Visit [facility] [address] [facility] [address] [place] [address] Doug Bains MD Hernia of abdominal wall 07/10/2024 Telephone [facility] [facility] [address] [place] [address] Ortiz Mckee MD PhD blood pressure concerns 07/02/2024 Telephone [facility] [address] [facility] [address] [place] [address] Marian Can Chart Review ([facility] adherence) 06/24/2024 Telephone [facility] [address] [facility] [address] [place] [address] Lucien Pelletier MD Referral Request 06/24/2024 Telephone [facility] [address] [facility] [address] [place] [address] Lucien Pelletier MD Referral Request 06/19/2024 Telephone [facility] [address] [place] [address] [address] [place] [address] Ortiz Mckee MD PhD 06/18/2024 1:00 PM CDT Office Visit [facility] [address] [place] [address] [address], [place] [address] Ortiz Mckee MD PhD Other chest pain (Primary Dx) 06/18/2024 Telephone [facility] [address] [place] [address] [place] [phone] Darshan Lopez MD 06/12/2024 11:00 AM COMMERCIAL INSURANCE UNDERWRITER Office Visit [facility] [address] [place] [address] [address] [place] [address] Aileen Savage NP Nephrolithiasis (Primary Dx); Morbid obesity with BMI of 40.0-44.9, adult (HCC); Dyspnea on exertion; Abnormal cardiovascular stress test; Partial small bowel obstruction (HCC); Hernia of abdominal wall 06/11/2024 [facility] [address] [place] [phone] Lucien Pelletier MD 06/07/2024 Telephone [facility] [address] [place] [address] [place] [phone] Lucien Pelletier MD 06/06/2024 Telephone [facility] [address] [place] [address] [place] [phone] Lucien Pelletier MD Test Results 06/06/2024 [facility] [address] [place] [address] [place] [phone] Lucien Pelletier MD Recommendation Request (Nephrology); kidney stones 06/06/2024 Telephone [facility] [address] [place] [address] [place] [phone] Lucien Pelletier MD Medical Records Request 06/05/2024 10:07 AM COMMERCIAL INSURANCE UNDERWRITER - 06/05/2024 11:59 PM COMMERCIAL INSURANCE UNDERWRITER Hospital Encounter [facility] [address] [place] [phone] Dyspnea on exertion Discharge Disposition: Discharge to home or self care 06/05/2024 [facility] [address] [facility] [address] [place] [address] Lucien Pelletier MD Medical Question/Miscellaneou s 06/03/2024 TEREZA IP Outreach [facility] Accountable Care Organization [address] [place] [address] Madelin Hernández MA 05/31/2024 12:21 PM COMMERCIAL INSURANCE UNDERWRITER - 06/01/2024 5:10 PM COMMERCIAL INSURANCE UNDERWRITER Hospital Encounter [facility] 9789 [address] [facility] [address] [address] Alec Rivera Jr., MD Discharge Disposition: Discharge to home or self care 05/31/2024 10:58 AM COMMERCIAL INSURANCE UNDERWRITER - 05/31/2024 11:59 PM COMMERCIAL INSURANCE UNDERWRITER Hospital Encounter ON LICENSE OF [facility] AMBULANCE BILLING Emergency, Room R Discharge Disposition: Discharge to home or self care 05/30/2024 2:23 PM COMMERCIAL INSURANCE UNDERWRITER - 05/31/2024 11:25 AM COMMERCIAL INSURANCE UNDERWRITER Emergency [facility] Emergency Department [address] [place] [address] Barry Infante MD Wala, Keegan Swenson MD Nausea and vomiting, unspecified vomiting type (Primary Dx); Bowel obstruction (HCC); Renal stone; Gallbladder stone without cholecystitis or obstruction Discharge Disposition: Discharge to a short term hospital for IP from Last 3 Months Immunizations Immunization Administration [...] ANGIOGRAPHY AND WITH OR WITHOUT LEFT VENTRICULOGRAM [id number]; Surgeon: Lloyd Nix MD; [facility]; Service: Cardiovascular; Laterality: N/A; LITHOTRIPSY Right Medical [...] weight loss Hypercholesterolemia High choles terol; Comments: SINGH 06/11/2014 - Malignant neoplasm of sigmoid colon [...] drink = 0.6 oz pur e alcohol) [facility] [employer] Answer Date Recorded In the past 12 months has [place], gas, oil, or water [employer] threatened to shut off services in your [...] How often do you attend chur or yarsani services? 1 to 4 times per year 07/22/2024 Do you belong to any clubs o r organizations such as catholic groups, unions, fraternal or athletic groups, or [...] any time in the past 12 m [facility], were you homeless or living in a alf (including now)? No 07/22/2024 Personal Safety Answer Date Recorded Have you ever been in or are you currently in a harmful physical or emotional relationship or is someone making you feel afraid or unsafe? Denies 08/15/2024 Comments No Sex and Gender Information Value Date Recorded Sex Assigned at Not on file Legal Sex Female 11:27 AM COMMERCIAL INSURANCE UNDERWRITER Gender Identity Not on file Sexual Orientation [...] 08/21/2024 9:46 AM CDT Plan of Treatment Health Maintenance Due Date Last Done Comments Cervical Cancer Screening 1960 Osteoporosis Screening-Bone Density Scan 1960 Covid-19 Vaccine ( season) 2024 02/08/2024, 05/10/2021, 07/14/2020, Additional history exists Well Visit 65+ 10/17/2024 10/18/2023, 06/09, 07/02/2020, Additional history exists Breast Cancer Screening-Mammogram 12/05/2024 12/06/2023, 10/19/2022, 07/23/2020, Additional history exists Zoster Vaccine (2 of 2) 05/20/2025 02/09/2023 Post poned from 04/06/2023 (Insurance / Financial) Depression Screening 07/25/2025 07/25/2024, 07/25/2024, 05/20/2024, Additional history exists Fall Risk Assessment 08/15/2025 08/15/2024, 05/20/2024, 07/02/2020, Additional history exists Colon Cancer [...] as needed Medical Devices Implanted Type Area Studio Potter Device Identifier Shelf Expiration Date Model / Serial / Lot [employer] Inc/C R Bard [address] St Sepra Sorbaflex 4.5in [place] Open Bioresorbable Self [id number] - [id number] Implanted:Qty: 1 on 08/01/2024 by Doug Bains MD at [facility] Mesh N/A: Abdomen [employer]ol Inc/C R Bard 12/05/2025 [id number] / / [id number] [employer] QuantaSol Stent Ureteral Set Double Pigtail Tapered Tip Contour [id number] Hydroplus Coated [id number] - [id number] Implanted:Qty: 1 on 08/15/2024 by Naif Peguero MD at [facility] 02/28/2027 [id number] / / [id number] Procedures Procedure Name Priority Date/Time Associated Diagnosis Comments SURGICAL PATHOLOGY Routine 08/15/2024 11 :26 AM CDT Calculus of kidney FL RETRO PYELO (IN OR) IP Routine 9:21 AM CDT STONE ANALYSIS Routine 08/15/2024 9:03 AM CDT MN AN ELECTIVE SUPRAGLOTTIC AIRWAY Routine 08/15/2024 8:36 AM CDT URETEROSCOPY 08/15/2024 8:20 AM CDT Calculus of kidney POTASSIUM, WHOLE BLOOD STAT 7:29 AM CDT MN AN PROCEDURE PLACEHOLDER Routine 08/01/2024 11:14 AM CDT MN AN ELECTIVE ENDOTRACHEAL AIRWAY Routine 08/01/2024 11:14 [...] DOPPLER/CF W CONTRAST Routine 06/05/2024 11:49 AM COMMERCIAL INSURANCE UNDERWRITER Dyspnea on exertion EGFR Routine 05/31/2024 2:29 PM COMMERCIAL INSURANCE UNDERWRITER PHOSPHORUS STAT 05/31/2024 2:29 PM COMMERCIAL INSURANCE UNDERWRITER MAGNESIUM STAT 05/31/2024 2:29 PM COMMERCIAL INSURANCE UNDERWRITER COMPREHENSIVE METABOLIC PANEL Routine 05/31/2024 2:29 PM COMMERCIAL INSURANCE UNDERWRITER CBC WITHOUT DIFFERENTIAL STAT 05/31/2024 2:29 PM COMMERCIAL INSURANCE UNDERWRITER XR ABDOMEN AP 1 VIEW ED Urgent/IP Urgent 05/31/2024 9:45 AM COMMERCIAL INSURANCE UNDERWRITER SCREENING MAMMOGRAM BILATERAL W TRAY Schedule Routine, [...] Analysis) 08/15/2024 9:00 AM CDT Narrative PATHOLOGY ON LICENSE OF [facility] - 08/16/2024 11:08 AM CDT EPIC results best viewed via link to PDF [facility] Department of Pathology [address] [place] [address] Note to Patients: This report may contain [...] Final Report Patient Name: LINSEY ARNOLD Address: [address] [place] [address] [place] [address] Gender: F : 1960 (Age: 64) Service: Surgery Location: [facility] Hospital #: [id number] Patient Type: [facility] Taken: 08/15/2024 Received: 08/15/2024 Accessioned: 08/15/2024 Reported: 08/16/2024 Physician(s):Naif Peguero M.D. Diagnosis: Kidney, right: - Calculi (gross examination only). - Submitted to [facility] for chemical analysis. Jaiden Ruiz MD Report Electronically Reviewed and Signed Out [...] mm. The specimen is entirely submitted to [facility] for chemical analysis. When the [facility] report has been finalized, it will be available in the laboratory section of [facility]. If [facility] is not available, please call the Department of Pathology at [facility] ([phone]) to obtain a copy of the report. Darlin Bond R.N., PChong./Juli Tadeo M.D. REPORT IMAGES AND SCANNED DOCUMENTS, IF INCLUDED, ONLY VIEWABLE IN PDF VERSION OF REPORT The performance characteristics of some immunohistochemical stains, fluorescence in-situ hybridization tests and immunophenotyping by flow cytometry cited in this report (if any) were determined by the Surgical Pathology Department at [facility] as part of an ongoing quality assurance calibrator program and in compliance with federally mandated [...] characteristics determined by the Surgical Pathology Department [facility]. It has not been cleared or approved by the U. S. Food and Drug Administration. Note for decalcified specimens: This assay has not been validated on decalcified tissues. Results should be interpreted with caution given the possibility of false negativity on decalcified specimens Naif Peguero MD LAB PATHOLOGY ORDERA BLES Final Result PATHOLOGY ON LICENSE OF [facility] [address] [place] [address] * FL Retro Pyelo (In Or) (08/15/2024 [...] Teodoro Lassiter M.D. RB: LORENZO Report ID: [id number] Reading Location: [id number] Procedure Note Teodoro Lassiter MD - 08/26/2024 [...] Teodoro Lassiter M.D. RB: RB Report ID: [id number] Reading Location: [id number] Naif Peguero MD IMG FLUOROSCOPY PROC EDURES Final Result * Stone analysis (08/15/2024 9:03 AM CDT) Stone analysis Not Reported [facility] Comment:Testing performed by : [facility], [address] [place] [address]., [id number] Source, Kid Stone Right Kidney [facility] (ESTER) Comment:Testing performed by : [facility], [address] [place] [address]., [id number] Interp, Kid stone analysis See Footnote [facility] (ESTER) Comment: 80% Calcium oxalate monohydrate. 10% Calcium oxalate dihydrate. 10% Uric acid. Testing performed by: [facility], [address] [place] [address]., [id number] COMMENT See Footnote [facility] (ESTER) Comment: For stones containing calcium oxalate, calcium phosphate, and/or uric acid, a 24 hr urinary supersaturation test may help detect underlying risk factors for this type of stone formation and provide guidance for a stone prevention strategy. ADDITIONAL INFORMATION This test was developed and its performance characteristics determined by [facility] in a manner consistent with CLIA requirements. This test has not been cleared or approved by the U.S. Food and Drug Administration. Test Performed by: [facility] [place] [address] Air Brake Operator: Nasrin Charles Ph.D.; CLIA# [id number] Testing performed by: [address], [address] Stone 08/15/2024 9:03 AM CDT 08/19/2024 12:57 PM CDT Narrative HEATH CRUZ (ESTER) - 08/24/2024 10:27 AM CDT right kidney stone Naif Peguero MD LAB URINE ORDERABLES Final Result HEATH CRUZ (HAMMOND) 1 [facility] Department of Laboratories [place], [place] [id number] [facility] * [place] AN ELECTIVE SUPRAGLOTTIC AIRWAY (08/15/2024 8:36 AM CDT) Narrative Breann Iraheta CRNA - 08/15/2024 8:36 AM CDT Breann Iraheta CRNA 08/15/2024 8:36 AM Airway Patient location: OR Urgency: elective Date/time: 08/15/2024 8:26 AM Indications for airway management: anesthesia Difficult airway: no Staff: Placed by: WATERMELON HARVESTING SUPERVISOR: Breann Iraheta CRNA Emergent airway documentation: Risks [...] Potassium, whole blood (08/15/2024 7:29 AM CDT) [facility] Potassium, bld 4.3 3.3 - 4.9 mmol/L [...] MD LAB BLOOD ORDERABLES Fin al Result [facility] 1 [facility] Department [place] [address] * MN AN ELECTIVE ENDOTRACHEAL AIRWAY, [place] AN PROCEDURE PLACEHOLDER (08/01/2024 11:14 AM CDT) Narrative Lane Bowser CRNA - 08/01/2024 11:[address] CRNA 08/01/2024 11:14 AM Airway Patient location: OR Urgency: elective Indications for airway management: anesthesia Difficult airway: no Staff: Supervising provider: Asad Beth MD Placed by: WATERMELON HARVESTING SUPERVISOR: Lane Bowser CRNA Emergent airway documentation: Risks [...] from the original result were not included. [facility] Cardiology [address] [place] [address], [id number], [address] Left Heart Catheterization Procedure Report 64 y.o. [...] and draped in sterile fashion. A 6 Burkinan sheath was inserted in the Right Radial [...] ur Yellow Yellow Clarity, ur Clear Clear [facility] Specific gravity, ur 1.045(H) 1.003 - 1.030 [facility] pH, urine 5.5 [facility] Comment: Interpretive Data U rine pH is affected by diet, medications, systemic acid-base disturbances, and renal tubular function. pH may affect urinary stone formation. For example, urine pH below 6.0 may help reduce the tendency for calcium phosphate stones and pH greater than 6.0 may reduce the tendency for uric acid stone formation. Source: [facility] startuply Current Interpretive Data was last revised on 2017 Protein, ur ql Trace Negative [facility] Glucose, ur ql Negative Negative [facility] Ketones, ur Negative Negative [facility] Bilirubin, ur Negative Negative [facility] Blood, ur Negative Negative [facility] Urobilinogen, ur <2.0 <2.0 mg/dL [facility] Nitrite, ur Negative Negative [facility] Leukocyte esterase, ur Negative Negative [facility] UA reflex comment Reflex conditions for microscopic UA and culture not met. [facility] Urine, clean voided 07/20/2024 10:24 AM CDT 07/20/2024 10:31 AM CDT Kim Schaefer MD LAB MICROBIOLOGY - GENERAL ORD ERABLES Final Result Performing Organization Address [facility] Co de Phone Number [facility] [address] Department of Laboratories [place], [place] [id number] * eGFR (07/20/2024 5:43 AM CDT) eGFR [...] ORDERABLES Final Resul t Performing Organization Address [facility]/ZIP Co de Phone Number [facility] [address] Department of Laboratories [place], [place] [id number] * (ABNORMAL) CBC without differential (07/20/2024 5:43 AM CDT) Pathologist [facility] WBC 4.84 3.80 - 9.90 K/cumm Hgb 11.7(L) 11.9 - 15.5 g/dL [facility] Hct 38.6 35.6 - 45.5 % [facility] Plt 211 150 - 400 K/cumm [facility] MPV 11.0 9.1 - 12.3 fL [facility] RBC 4.11 3.90 - 5.20 M/cumm [facility] MCV 93.9 81.3 - 96.4 fL [facility] MCH 28.5 27.1 - 33.3 pg [facility] MCHC 30.3(L) 32.3 - 35.7 g/dL [facility] RDW CV 14.6 11.1 - 14.9 % [facility] RDW SD 50.5(H) 35.7 - 48.1 fL [facility] NRBC abs 0.00 0.00 - 0.01 K/cumm [facility] Blood 07/20/2024 5:43 AM CDT 07/20/2024 6:40 AM CDT us Shmuel Knox MD LAB BLOOD ORDERABLES Final Resul t Performing Organization Address City/[facility] Co de Phone Number [place] [address] [place] [address] * Phosphorus (07/20/2024 5:43 AM CDT) Phosphorus, pl 4.2 2.3 - 4.5 mg/dL Blood 07/20/2024 5:43 AM CDT 07/20/2024 6:45 AM CDT Shmuel Knox MD LAB BLOOD ORDERABLES Final Resul t Performing Organization Address City/State/[facility] Co de Phone Number [facility] [address] [place] [address] * Magnesium (07/20/2024 5:43 AM CDT) Magnesium 2.0 1.4 - 2.5 mg/dL Blood 07/20/2024 5:43 AM CDT 07/20/2024 6:45 AM CDT us Shmuel Knox MD LAB BLOOD ORDERABLES Final Resul t Performing Organization Address [facility] Co de Phone Number [facility] [address] [place] [address] * Basic metabolic panel (07/20/2024 5:43 AM CDT) Sodium 143 135 - 145 mmol/L Potassium, pl 4.1 3.3 - 4.9 mmol/L [facility] Chloride 106 97 - 110 mmol/L [facility] CO2 27 22 - 32 mmol/L [facility] Anion gap 10 2 - 15 mmol/L [facility] BUN 18 6 - 25 mg/dL [facility] Creatinine 0.96 0.60 - 1.10 mg/dL [facility] Glucose 124 70 - 199 mg/dL [facility] Comment: Interpretive Data Fasting glucose [...] 2022. Calcium 9.3 8.5 - 10.3 mg/dL [facility] Blood 07/20/2024 5:43 AM CDT 07/20/2024 6:45 AM CDT Shmuel Knox MD LAB BLOOD ORDERABLES Final Resul t Performing Organization Address [facility] Co de Phone Number [facility] [address] [place] [address] * Troponin T high-sensitivity 6-hour (07/20/2024 2:19 AM CDT) Trop T hs 13 <=14 ng/L Comment: Interpretive Data For further hscTnT resources including the diagnostic algorithm and an aid in interpretation, copy and paste this link: https://nrl.testTradeUp Labs.org/show/hsTrop Current Interpretive Data last revised 2020. Trop T hs delta -2 ng/L [facility] Trop T hs interp Insignificant [facility] Blood 07/20/2024 2:19 AM CDT 07/20/2024 2:34 AM CDT Jennifer Esquivel MD LAB BLOOD ORDERABLES Final Result Performing Organization Address [facility] Co de Phone Number [facility] [address] [place] [address] * Troponin T high-sensitivity 2-hour (07/19/2024 11:17 PM CDT) Trop T hs 14 <=14 ng/L Comment: Interpretive Data For further hscTnT resources including the diagnostic algorithm and an aid in interpretation, copy and paste this link: https://nrl.testTradeUp Labs.org/show/hsTrop Current Interpretive Data last revised 2020. Trop T hs delta -1 ng/L [facility] Trop T hs interp Insignificant [facility] Blood 07/19/2024 11:1 7 PM CDT 07/19/2024 11:32 PM CDT Jennifer Esquivel MD LAB BLOOD ORDERABLES Final Result Performing Organization Address [facility] Co de Phone Number [facility] [address] [place] [address] * XR Chest PA Lateral 2 Views [...] 4hr, 6hr) (07/19/2024 8:33 PM CDT) Pathologist [facility] Trop T hs 15(H) <=14 ng/L Comment: Interpretive Data For further hscTnT resources including the diagnostic algorithm and an aid in interpretation, copy and paste this link: https://nrl.testcatalog.org/show/hsTrop Current Interpretive Data last revised 2020. Blood 07/19/2024 8:33 PM CDT 07/19/2024 8:50 PM CDT Jennifer Esquivel MD LAB BLOOD ORDERABLES Final Result [facility] [address] [place] [address] * eGFR (07/19/2024 8:33 PM CDT) [facility] eGFR 77 >=60 mL/min/1. 73 m2 Comment: [...] Esquivel MD LAB BLOOD ORDERABLES Final Result [facility] [address] [place] [address] * Differential, auto (07/19/2024 8:33 PM CDT) Neutrophil abs 4.11 1.50 - 6.50 K/cumm Imm gran abs 0.02 0.00 - 0.10 K/cumm [facility] Lymphocyte abs 1.21 0.80 - 3.30 K/cumm [facility] Monocyte abs 0.48 0.20 - 0.80 K/cumm [facility] Eosinophil abs 0.18 0.00 - 0.50 K/cumm [facility] Basophil abs 0.03 0.00 - 0.10 K/cumm [facility] Neutrophil pct 68.1 % [facility] Comment: Interpretive Data Percent cell count reference ranges are not reported, since discordance with absolute values may lead to misinterpretation of CBC data. Current Interpretive Data was last revised on 2017. Imm gran pct 0.3 % [facility] Comment: Interpretive Data Percent cell count reference ranges are not reported, since discordance with absolute values may lead to misinterpretation of CBC data. Current Interpretive Data was last revised on 2017. Lymphocyte pct 20.1 % [facility] Comment: Interpretive Data Percent cell count reference ranges are not reported, since discordance with absolute values may lead to misinterpretation of CBC data. Current Interpretive Data was last revised on 2017. Monocyte pct 8.0 % [facility] Comment: Interpretive Data Percent cell count reference ranges are not reported, since discordance with absolute values may lead to misinterpretation of CBC data. Current Interpretive Data was last revised on 2017. Eosinophil pct 3.0 % [facility] Comment: Interpretive Data Percent cell count reference ranges are not reported, since discordance with absolute values may lead to misinterpretation of CBC data. Current Interpretive Data was last revised on 2017. Basophil pct 0.5 % [facility] Comment: Interpretive Data Percent cell count reference ranges are not reported, since discordance with absolute values may lead to misinterpretation of CBC data. Current Interpretive Data was last revised on 2017. Blood 07/19/2024 8:33 PM CDT 07/19/2024 8:50 PM CDT us Jennifer Esquivel MD LAB BLOOD ORDERABLES Final Result [facility] [address] [place] [address] * Pro B-type natriuretic peptide (07/19/2024 8:33 [...] Heart J. 2006:27:330-337. 2. Pavel RW, Thea AM. J. AM Miki Cardiol: Cardiovasc Imag. 2009;2: 216- 225. Interpretive Data Last Revised Date: 2017. Blood 07/19/2024 8:33 PM CDT 07/19/2024 8:50 PM CDT Jennifer Esquivel MD LAB BLOOD ORDERABLES Final Result [facility] [address] [place] [address] * (ABNORMAL) CBC with auto differential (07/19/2024 8:33 PM CDT) WBC 6.03 3.80 - 9.90 K/cumm Hgb 12.4 11.9 - 15.5 g/dL [facility] Hct 39.0 35.6 - 45.5 % [facility] Plt 248 150 - 400 K/cumm [facility] MPV 10.9 9.1 - 12.3 fL [facility] RBC 4.31 3.90 - 5.20 M/cumm [facility] MCV 90.5 81.3 - 96.4 fL [facility] MCH 28.8 27.1 - 33.3 pg [facility] MCHC 31.8(L) 32.3 - 35.7 g/dL [facility] RDW CV 14.4 11.1 - 14.9 % [facility] RDW SD 48.0 35.7 - 48.1 fL [facility] NRBC abs 0.00 0.00 - 0.01 K/cumm [facility] Blood 07/19/2024 8:33 PM CDT 07/19/2024 8:50 PM CDT us Jennifer Esquivel MD LAB BLOOD ORDERABLES Final Result [facility] [address] [place] [address] * (ABNORMAL) Comprehensive metabolic panel (07/19/2024 8:33 PM CDT) Sodium 143 135 - 145 mmol/L Potassium, pl 4.2 3.3 - 4.9 mmol/L [facility] Comment:Hemolyzed; potassium value may be falsely elevated by as much as 0.3 - 0.5 mmol/L. Suggest redraw and reanalysis Chloride 106 97 - 110 mmol/L [facility] CO2 23 22 - 32 mmol/L [facility] Anion gap 14 2 - 15 mmol/L [facility] BUN 17 6 - 25 mg/dL [facility] Creatinine 0.84 0.60 - 1.10 mg/dL [facility] Glucose 131 70 - 199 mg/dL [facility] Comment: Interpretive Data Fasting glucose [...] 2022. Calcium 9.4 8.5 - 10.3 mg/dL [facility] Bilirubin, total 0.4 0.1 - 1.2 mg/dL [facility] Protein, pl 6.7 6.5 - 8.5 g/dL [facility] Albumin 4.1 3.5 - 5.0 g/dL [facility] Alk phos 87 40 - 130 Units/L [facility] ALT 30 7 - 45 Units/L [facility] AST 56(H) 10 - 45 Units/L [facility] Comment:Slightly Hemolyzed S pecimen Blood 07/19/2024 8:33 PM CDT 07/19/2024 8:50 PM CDT Jennifer Esquivel MD LAB BLOOD ORDERABLES Final Result Performing Organization Address City/[facility] Co de Phone Number [facility] [address] [place] [address] * ECG 12 lead (07/19/2024 8:24 PM CDT) 07/19/2024 8:24 PM CDT Narrative [facility] - 07/21/2024 3:20 PM CDT Vent Rate: 65 bpm RR Interval: 919 msec [place] Interval: 165 msec QRS Duration: 97 msec QT Interval: 405 msec QTC Interval: 416 msec P-R-T [place]: 49 - -11 - 47 degrees IMPRESSION: SINUS RHYTHM NORMAL ECG Electronically Signed By: Lucien Lennon MD Chris Danielle MD ECG ORDERABLES Final Result Performing Organization Address [facility] de Phone Number Union[facility] YuanV [facility] * CTA Heart and Coronary Arteries W [...] AM CDT Narrative 07/19/2024 2:03 PM CDT [facility] [place] [address] Transthoracic Echocardiographic Report Patient Name: LINSEY ARNOLD S : 1960 (64y 5m) Gender: F Study Date: 07/19/2024 11:33:36 AM Ht(Inch): 67 Wt(Lb): 283.29 BSA: 2.46 Piledriver Carpenter: ELAN Location: [facility] Order Provider: ORTIZ MCKEE Heart Rate: [...] LA Length 2C 5.53 cm AI Decel [place] 1.57 m/s2 LA Volume BP 75.94 ml [...] Procedure Note Todd Pruitt MD - 07/19/2024 [facility] [place] [address] Transthoracic Echocardiographic Report Patient Name: LINSEY ARNOLD S : 1960 (64y 5m) Gender: F Study Date: 07/19/2024 11:33:36 AM Ht(Inch): 67 Wt(Lb): 283.29 BSA: 2.46 Piledriver Carpenter: ELAN Location: [facility] Order Provider: JESEORTIZ Heart Rate: 66 BMI: [...] LA Length 4C 6.06 cm AI Decel [id number] sec LA Length 2C 5.53 cm AI Decel [place]1.57 m/s2 LA Volume BP 75.94 ml AI TXI943.42 msec LA Volume Index 30.87 ml/m2 [ 16.00 - 34.00 ] MV E Peak Vel0.8 m/s [ 0.6 - 1.3 ] RV Base Dimen 2D 3.1 cm [ 2.5 - 4.2 ] MV A Peak Vel0.9 m/s [ 1.0 - 1.2 ] RA Volume 35.34 ml MV E/A0.8 ratio [ 0.8 - 1.5 ] RA Volume Index 14.37 ml/m2 MV Decel Qain646.73 msec [ 104.00 - 258.00 ] AoR [...] 0.6 - 1.3 mg/dL POC Device Number [id number] [facility] POC Performer [id number] [facility] Blood 07/19/2024 12:2 4 PM CDT 07/19/2024 12:24 PM CDT us Aileen Savage NP LAB BLOOD ORDERABLES Final R esult [facility] [address] [facility]. [place] [address] * STRESS ECHO PHARMACOLOGIC W DOPPLER/CF W CONTRAST (06/05/2024 11:49 AM COMMERCIAL INSURANCE UNDERWRITER) Anatomical Region Laterality Modality Ultrasound, Nucl ear Medicine 06/05/2024 11:1 4 AM COMMERCIAL INSURANCE UNDERWRITER Narrative 06/05/2024 1:03 PM COMMERCIAL INSURANCE UNDERWRITER [address] [address] Dobutamine Stress Echocardiogram Report Patient Name: LINSEY ARNOLD : 1960 Study Date: 06/05/2024 11:14:08 AM Gender: F Tech: PUTTY MIXER Ref Provider: LUCIEN PELLETIER Height(Cm): 173 BSA: [...] By: Dr Teodoro Holley 06/05/2024 1:02:34 PM COMMERCIAL INSURANCE UNDERWRITER Procedure Note Teodoro Holley MD - 06/05/[address] [address] Dobutamine Stress Echocardiogram Report Patient Name: LINSEY ARNOLD : 1960 Study Date: 06/05/2024 11:14:08 AM Gender: F Tech: PUTTY MIXER Ref Provider: LUCIEN PELLETIER Height(Cm): 173 BSA: [...] regards to heart rate with the patient [id number]% of predicted maximum heart rate. No exercise induced chest pain. No Echocardiographic evidence of ischemia. However, patient had [address] segment depressioninferolaterally. Consider cardiology consultation if clinically indicated. Electronically Signed By: Dr Teodoro Holley 06/05/2024 1:02:34 PM COMMERCIAL INSURANCE UNDERWRITER us Lucien Pelletier MD CV ECHO PROCEDURES Final Result * eGFR (05/31/2024 2:29 PM COMMERCIAL INSURANCE UNDERWRITER) eGFR 82 >=60 mL/min/1. 73 m2 Comment: [...] last reviewed 2021. Blood 05/31/2024 2:29 PM COMMERCIAL INSURANCE UNDERWRITER 05/31/2024 2:32 PM COMMERCIAL INSURANCE UNDERWRITER Karol Dexetr NP LAB BLOOD ORDERABLES Final Resul t Performing Organization Address [facility] Co de Phone Number [facility] [address] [place] [address] * (ABNORMAL) CBC without differential (05/31/2024 2:29 PM COMMERCIAL INSURANCE UNDERWRITER) WBC 5.2 3.8 - 9.9 K/cumm Hgb 13.6 11.9 - 15.5 g/dL [facility] Hct 43.5 35.6 - 45.5 % [facility] Plt 245 150 - 400 K/cumm [facility] MPV 10.4 9.1 - 12.3 fL [facility] RBC 4.72 3.90 - 5.20 M/cumm [facility] MCV 92.2 81.3 - 96.4 fL [facility] MCH 28.8 27.1 - 33.3 pg [facility] MCHC 31.3(L) 32.3 - 35.7 g/dL [facility] RDW CV 14.7 11.1 - 14.9 % [facility] RDW SD 49.8(H) 35.7 - 48.1 fL [facility] NRBC abs 0.00 0.00 - 0.01 K/cumm [facility] Blood 05/31/2024 2:29 PM COMMERCIAL INSURANCE UNDERWRITER 05/31/2024 2:32 PM COMMERCIAL INSURANCE UNDERWRITER Karol Dexter NP LAB BLOOD ORDERABLES Final Resul t Performing Organization Address [facility]/ZIP Co de Phone Number [facility] [address] [facility] Center[facility] Link TechnologiesAdvanced [facility] [employer] [place], [place] [id number] * Phosphorus (05/31/2024 2:29 PM COMMERCIAL INSURANCE UNDERWRITER) Phosphorus, pl 2.5 2.3 - 4.5 mg/dL Blood 05/31/2024 2:29 PM COMMERCIAL INSURANCE UNDERWRITER 05/31/2024 2:32 PM COMMERCIAL INSURANCE UNDERWRITER Karol Dexter NP LAB BLOOD ORDERABLES Final Resul t Performing Organization Address [facility] Co de Phone Number [facility] [address] [facility] [place] [address] * Magnesium (05/31/2024 2:29 PM COMMERCIAL INSURANCE UNDERWRITER) Magnesium 2.0 1.4 - 2.5 mg/dL Comment: Reference Data. Reference values for Labor and Delivery patients: < or = 0.7 mg/dL to > or = 7.3 mg/dL Current reference data last reviewd on 01/07/2015. Blood 05/31/2024 2:29 PM COMMERCIAL INSURANCE UNDERWRITER 05/31/2024 2:32 PM COMMERCIAL INSURANCE UNDERWRITER Karol Dexter NP LAB BLOOD ORDERABLES Final Resul t Performing Organization Address [facility] Co de Phone Number [facility] [address] [facility] [place] [address] * (ABNORMAL) Comprehensive metabolic panel (05/31/2024 2:29 PM COMMERCIAL INSURANCE UNDERWRITER) Sodium 137 135 - 145 mmol/L Potassium, pl 3.7 3.3 - 4.9 mmol/L [facility] Chloride 99 97 - 110 mmol/L [facility] CO2 26 22 - 32 mmol/L [facility] Anion gap 12 2 - 15 mmol/L [facility] BUN 22 6 - 25 mg/dL [facility] Creatinine 0.80 0.60 - 1.10 mg/dL [facility] Glucose 118 70 - 199 mg/dL [facility] Comment: Interpretive Data Fasting glucose >/= [...] classification and Diagnosis of Diabetes Diabetes Care 2022; 46: S19-S40. Current interpretive data was last [...] Units/L [facility] Blood 05/31/2024 2:29 PM COMMERCIAL INSURANCE UNDERWRITER 05/31/2024 2:32 PM COMMERCIAL INSURANCE UNDERWRITER us Karol Dexter NP LAB BLOOD ORDERABLES Final Resul t [facility] [address] [facility]. [place] [address] * XR Abdomen 1 View AP (05/31/2024 9:45 AM COMMERCIAL INSURANCE UNDERWRITER) Anatomical Region Laterality Modality Body, Abdomen N/A Computed Radiogr aphy 05/31/2024 10:2 8 AM COMMERCIAL INSURANCE UNDERWRITER Narrative 05/31/2024 10:35 AM COMMERCIAL INSURANCE UNDERWRITER EXAM DESCRIPTION: XR ABDOMEN AP 1 VIEW [...] lower quadrant has increased compared to the motor vehicle assembly supervisor radiograph obtained on CT yesterday. There is [...] of distension does appear greater than on motor vehicle assembly supervisor image from CT scan performed yesterday, suggesting [...] Rae Reynolds M.D. TW: JAMES Report ID: [id number] Reading Location: [id number] Procedure Note Rae Reynolds MD - 05/31/2024 [...] left lower quadrant has increased compared tothe motor vehicle assembly supervisor radiograph obtained on CT yesterday. There is [...] Rae Reynolds M.D. TW: JAMES Report ID: [id number] Reading Location: [id number] Naif Peguero MD IMG XR PROCEDURES Fi [...] compared to prior imaging studies performed at [facility] on 04/30/2019, at [facility] at [facility] on 07/23/2020, and at [facility] on 10/19/2022. There are [...] compared to prior imaging studies performed at [facility] on 04/30/2019, at [facility] on 07/23/2020, and at [facility] on 10/19/2022. There are scattered areas [...] Hooker MD - 09/22/2022 10:02 AM CDT [facility] Patient Name: Linsey Arnold Procedure Date: 09/22/2022 10:02 AM Date of : 1960 Admit Type: Outpatient Age: 62 Gender: Female Attending MD: Rich Hooker M.D. Room: [facility] ENDOSCOPY ROOM 02 Note Status: Finalized Procedure: [...] The scope was passed under direct vision.The [id number] was introduced through the anusand advanced to the the cecum, identified byappendiceal orifice and ileocecal valve. The colonoscopy was performed with ease. The patient tolerated the procedure well. The quality of the bowelpreparation was excellent. The quality of the bowel preparation was evaluated using the BBPS ([place] BowelPreparation Scale) with scores of: Right Colon [...] On: 09/22/2022 10:02 AM Recognized by the [place] [employer] Gastrointestinal End[employer] for promoting quality in endoscopy us Rich Hooker MD ENDOSCOPY PROCEDURES Final R esult * Hepatitis C antibody (07/02/2020 10:36 AM CDT) Hep C Ab Nonreactive Nonreactive [facility] Comment: Interpretive Data Nonreactive: Antibodies to HCV [...] last revised on 2019. Testing performed by: [facility], [address] [place] [address]., [id number] Blood specimen (specimen) 07/02/2020 10:36 AM CDT 07/02/2020 8:25 PM CDT Melissa Cohen NP LAB MICROBIOLOGY - GENERAL ORDERABLES Final Result [facility] [id number] [facility]. [place] [address] from Last 3 Months or Most Recently Relevant to Health Maintenance Insurance [employer] PPO COMMERCIAL GENERIC [employer] MED[employer] PPO Advance Directives For more information, please contact: [phone] * Full Code (Latest Code Status on [...] 2:17 AM 07/15/2022 6:50 AM Care Teams Winding Rack Operator Relationship Specialty Start Date End Date Lucien Pelletier MD PCP - General 09/01/16 Fredy Guaman MD [address] [place] [address] Referring Physician Neuromuscular Medicine 12/26/17 Doug Bains MD [address] [facility] [address] [place] [address] Consulting Physician General Surgery 08/02/24
== END 2024-08-28 16:33 | disposition home or self-care (01) ==
PROVIDERS: PCP Internal Medicine; Visit Provider Urology
DX: N20.0 Calculus of kidney (principal)
CPT/HCPCS: 74176